=== PATIENT | female | born 1970 | race Caucasian/White ===

== ENCOUNTER → 2017-08-03 11:46 | Outpatient (CLI) | payer OTHER, SELFPAY ==
[2017-08-10 11:51] LABS: HPV HC, High Risk Negative (Negative); HPV Reflexed? YES, CHARGE PATIENT
== END ==
PROVIDERS: Visit Provider Obstetrics & Gynecology
DX: Z12.4 Encounter for screening for malignant neoplasm of cervix (principal)
CPT/HCPCS: 87624; 88175; G0145

== ENCOUNTER → 2017-08-11 11:02 | Outpatient (CLI) | payer OTHER, SELFPAY ==
[2017-08-11 12:33] LABS: ALB/GLOB Ratio 0.9 RATIO (0.9-2.4); AST(SGOT) 31 U/L (15-37); Alanine Aminotransfer ALT/SGPT 41 U/L (13-56); Albumin, Serum 3.5 g/dL (3.2-5.0); Alkaline Phosphatase 89 U/L (45-117); Anion Gap 8 (5-15); BUN 15 mg/dL (7-18); BUN/Creat Ratio 22.8 RATIO (10-20); Calcium,Total 8.6 mg/dL (8.5-10.1); Chloride 105 mmol/L (98-107); Creatinine, Serum 0.66 mg/dL (0.55-1.02); EST Glomerular Filtration Rate 102 mL/min (>60); Est Glom Filt Rate - Afr Amer 124 mL/min (>60); Globulin 3.8 g/dL (2.2-4.2); Glucose 88 mg/dL (74-106); Potassium 3.7 mmol/L (3.5-5.1); Protein, Total 7.3 g/dL (6.4-8.2); Rheumatoid Factor < 10.0 IU/mL (<15); Sodium Level 140 mmol/L (136-145); Thyroid Stim Hormone (TSH) 0.05 uIU/mL (0.358-3.74)
[2017-08-11 12:35] LABS: Insulin 10.2 mU/L (2.6-37.6); Vitamin D,25 Hydroxy 35.9 ng/mL (29.95-100.01)
[2017-08-12 15:10] LABS: Anti-Thyroglobulin AB < 1.0 IU/mL (0.0-0.9); Thyroglobulin, Serum Qt. < 0.1 ng/mL (1.5-38.5)
== END ==
PROVIDERS: Family Provider Nurse Practitioner; PCP Nurse Practitioner; Visit Provider Internal Medicine Endocrinology, Diabetes & Metabolism
DX: E89.0 Postprocedural hypothyroidism (principal); E55.9 Vitamin D deficiency, unspecified; C73 Malignant neoplasm of thyroid gland; E88.81 Metabolic syndrome and other insulin resistance; R74.8 Abnormal levels of other serum enzymes
CPT/HCPCS: 36415; 80053; 82306; 83525; 84432; 84443; 86431; 86800

== ENCOUNTER → 2017-09-07 14:41 | Outpatient (CLI) | payer OTHER, SELFPAY | PROVIDERS: Family Provider Nurse Practitioner; PCP Nurse Practitioner; Visit Provider Internal Medicine Endocrinology, Diabetes & Metabolism | DX: N20.0 Calculus of kidney (principal) ==

== ENCOUNTER → 2017-09-27 09:57 | Outpatient (CLI) | payer OTHER, SELFPAY ==
[2017-09-27 13:10] LABS: ALB/GLOB Ratio 0.9 RATIO (0.9-2.4); AST(SGOT) 31 U/L (15-37); Alanine Aminotransfer ALT/SGPT 40 U/L (13-56); Albumin, Serum 3.4 g/dL (3.2-5.0); Alkaline Phosphatase 88 U/L (45-117); Anion Gap 8 (5-15); BUN 16 mg/dL (7-18); Calcium,Total 8.4 mg/dL (8.5-10.1); Chloride 109 mmol/L (98-107); EST Glomerular Filtration Rate 96 mL/min (>60); Est Glom Filt Rate - Afr Amer 116 mL/min (>60); Globulin 3.6 g/dL (2.2-4.2); Glucose 107 mg/dL (74-106); Potassium 3.6 mmol/L (3.5-5.1); Sodium Level 144 mmol/L (136-145); Thyroid Stim Hormone (TSH) < 0.01 uIU/mL (0.358-3.74)
[2017-09-29 11:30] LABS: Anti-Thyroglobulin AB < 1.0 IU/mL (0.0-0.9); Thyroglobulin, Serum Qt. < 0.1 ng/mL (1.5-38.5)
== END ==
PROVIDERS: Family Provider Nurse Practitioner; PCP Nurse Practitioner
DX: C73 Malignant neoplasm of thyroid gland (principal); E89.0 Postprocedural hypothyroidism
CPT/HCPCS: 36415; 80053; 84432; 84443; 86800

== ENCOUNTER → 2018-01-11 15:59 | Outpatient (CLI) | payer OTHER, SELFPAY ==
[2018-01-11] MEDS: DiphenhydrAMINE 50 MG/ML Syringe IV (16:14)
[2018-01-11 16:15] VITALS: BP 134/86; PULSE 110; RESP 18; O2SAT 99; BMI 35.4
[2018-01-11] MEDS: MethylPREDNISolone 125 MG/2 ML Vial 60 MG IV (16:24)
[2018-01-11 17:32] VITALS: BP 143/71; PULSE 117; RESP 18; O2SAT 100
== END ==
PROVIDERS: Family Provider Nurse Practitioner; PCP Nurse Practitioner; Visit Provider Nurse Practitioner Gerontology
DX: R06.02 Shortness of breath (principal)
CPT/HCPCS: 96374; 96375; 71275; Q9967; A4216

== ENCOUNTER → 2018-01-12 15:29 | Outpatient (CLI) | payer OTHER, SELFPAY | PROVIDERS: Family Provider Nurse Practitioner; PCP Nurse Practitioner; Visit Provider Nurse Practitioner Gerontology | DX: M79.606 Pain in leg, unspecified (principal) | CPT/HCPCS: 93971 ==

== ENCOUNTER → 2018-01-17 13:37 | Outpatient (CLI) | payer OTHER, SELFPAY ==
--- NOTE | 2018-01-17 13:46 | MRI_ITS ---
STUDY: MRI SOFT TISSUE NECK WITHOUT CONTRAST REASON FOR EXAM: Female, 47 years old. Lump on the left side of the face. TECHNIQUE: Standardized fat and water weighted pulse sequences were obtained in all 3 orthogonal planes without administration of contrast material. COMPARISON: None. FINDINGS: Normal right parotid gland. There is extension of the left parotid gland along the Stensen's duct consistent with normal variation explains the abnormal mass noted on clinical examination. Normal bilateral highway engineer spaces. Normal bilateral parapharyngeal spaces. Normal bilateral carotid spaces. Normal bilateral sublingual and submandibular glands and spaces. Normal visualized nasopharynx. Normal retropharyngeal space. Normal perivertebral space. Normal visualized bilateral faucial tonsils. The visualized tongue, tongue base and oropharynx are normal. The visualized cervical lymph nodes (levels I-) are within normal size limits, and maintain normal morphology. There is no demonstrated solid or cystic mass lesion. Normal epiglottis, bilateral vallecula and hypopharynx. The pre-epiglottic and paraglottic adipose spaces are normal. Normal visualized bilateral piriform sinuses, aryepiglottic folds, vocal cords, and arytenoid-cricoid articulations. Normal subglottic trachea. Normal bilateral lobes of the thyroid gland. Normal visualized pulmonary apices. Mild mucosal thickening in the paranasal sinuses. Normal visualized cervical spine. MRI/Orbit Face and Neck (Routine) IMPRESSION: There is extension of the left parotid gland along the Stensen's duct consistent with normal variation explains the abnormal mass noted on clinical examination. Follow-up in 3 months would be recommended to ensure stability. Electronically Signed: Elvie Becker MD at 0:13 EDT Tel , Service support ,
== END ==
PROVIDERS: Family Provider Nurse Practitioner; PCP Nurse Practitioner; Visit Provider Otolaryngology
DX: R22.1 Localized swelling, mass and lump, neck (principal)
CPT/HCPCS: 70540

== ENCOUNTER → 2018-02-14 15:05 | Outpatient (CLI) | payer OTHER, SELFPAY ==
--- NOTE | 2018-02-14 15:07 | BI_ITS ---
MAMMOGRAPHY - BILATERAL SCREENING REASON FOR EXAM: Female, 47 years old. Routine annual screening examination. PERTINENT HISTORY: Non-contributory. TECHNIQUE: Digital bilateral breast thee (3D mammographic acquisition) in the CC and MLO projections. 2-D mediolateral oblique (MLO) and craniocaudad (CC) views of both breasts were obtained. CAD: Full Field Digital Mammography with Computer Added Detection was performed. COMPARISON: Comparison is made with prior study dated July 22, 2016 and August 15, 2014. FINDINGS: Breast Composition: The breasts are heterogeneously dense, which may obscure small masses. There are no dominant masses or suspicious calcifications. Stable benign-appearing bilateral axillary lymph nodes. No other significant abnormalities are identified. There has been no significant change since the prior study. BI/SCREENING MAMM (CAD), BILAT IMPRESSION: Stable bilateral screening mammogram. Yearly follow-up mammogram recommended. (A) ASSESSMENT CATEGORY: BIRADS Category 2: Benign. A letter regarding these results will be sent to the patient by the facility within 30 days. Approximately 10% of breast cancers are not detected by mammography. A normal mammogram should not delay biopsy of a clinically suspicious abnormality. [id number] Electronically Signed: Jh Lyons MD at 8:52 EDT Tel [phone], Service support ,
== END ==
PROVIDERS: Family Provider Nurse Practitioner; PCP Nurse Practitioner; Visit Provider Obstetrics & Gynecology
DX: Z12.31 Encounter for screening mammogram for malignant neoplasm of breast (principal)
CPT/HCPCS: 77063; 77067

== ENCOUNTER → 2018-04-23 07:01 | Outpatient (CLI) | payer OTHER, SELFPAY ==
--- NOTE | 2018-04-23 07:06 | CT_ITS ---
STUDY: CT SOFT TISSUE NECK WITHOUT CONTRAST REASON FOR EXAM: Female, 47 years old. Tender left parotid lump present for weeks RADIATION DOSAGE (If Supplied By Facility): CTDIvol = ( 19.09 ) mGy, DLP = ( 615.08 ) mGycm TECHNIQUE: The patient was scanned in a multi-detector CT scanner. High resolution transaxial imaging was performed without the administration of intravenous contrast material. Sagittal and coronal images were reconstructed. Individualized dose optimization techniques were used for this CT. COMPARISON: None. FINDINGS: Normal bilateral parotid glands. Normal bilateral zipper joiner spaces. Normal bilateral parapharyngeal spaces. There are small soft tissue densities/nodes adjacent to the left submandibular gland corresponding to the marker placed on the patient's skin in this region. Normal visualized nasopharynx. Normal retropharyngeal space. Normal perivertebral space. Normal visualized bilateral faucial tonsils. The visualized tongue, tongue base and oropharynx are normal. There are multiple small nodes in the carotid spaces bilaterally and the posterior triangle of the neck, the largest measures about 1.2 cm in the right carotid space. There is no demonstrated solid or cystic mass lesion. The epiglottis appears to be unremarkable. The vallecula and hypopharynx appear unremarkable.. Normal visualized bilateral piriform sinuses, aryepiglottic folds, vocal cords, and arytenoid-cricoid articulations. Normal subglottic trachea. The thyroid gland is not enlarged. Normal visualized pulmonary apices. The sinuses demonstrate small soft tissue densities in the right maxillary sinus which could represent retention cyst. There is mild mucosal thickening of the right maxillary sinus. Normal visualized cervical spine. CT/Soft Tissue Neck without Contr IMPRESSION: Multiple small nodes on both sides of the neck as described above and in the region of the left submandibular gland could be reactive. Otherwise no demonstrated focal mass. Unremarkable airway. Electronically Signed: Daniel Mcgee MD at 11:09 EST Tel , Service support ,
== END ==
PROVIDERS: Family Provider Nurse Practitioner; PCP Nurse Practitioner; Referring Provider Internal Medicine Endocrinology, Diabetes & Metabolism; Visit Provider Internal Medicine Endocrinology, Diabetes & Metabolism
DX: C73 Malignant neoplasm of thyroid gland (principal)
CPT/HCPCS: 70490

== ENCOUNTER → 2018-07-28 08:04 | Outpatient (CLI) | payer OTHER, SELFPAY ==
--- NOTE | 2018-07-28 08:09 | CT_ITS ---
STUDY: CT SOFT TISSUE NECK WITH CONTRAST REASON FOR EXAM: Female, 47 years old. Cervical lymphadenopathy. Swollen lymph nodes more marked on the right. Pain in the right neck and face. History of thyroid cancer with radioactive iodine therapy and thyroidectomy. RADIATION DOSAGE (If Supplied By Facility): CTDIvol = ( 20.17 ) mGy, DLP = ( 574.22 ) mGycm TECHNIQUE: The patient was scanned in a multi-detector CT scanner. High resolution transaxial imaging was performed following intravenous administration of Isovue 300 100cc IV. Sagittal and coronal images were reconstructed. Individualized dose optimization techniques were used for this CT. COMPARISON: April 23, 2018. FINDINGS: Normal bilateral parotid glands. Normal bilateral manager internet spaces. Normal bilateral parapharyngeal spaces. Normal bilateral carotid spaces. There are some centimeter jugulodigastric lymph nodes which appear decreased in size when compared to prior study. Normal bilateral sublingual and submandibular glands and spaces. There are small stable submandibular lymph nodes. Normal visualized nasopharynx. Normal retropharyngeal space. Normal perivertebral space. Normal visualized bilateral faucial tonsils. The visualized tongue, tongue base and oropharynx are normal. The visualized cervical lymph nodes (levels I-) are within normal size limits, and maintain normal morphology. There is no demonstrated solid or cystic mass lesion. There is no abnormal contrast enhancement. Normal epiglottis, bilateral vallecula and hypopharynx. The pre-epiglottic and paraglottic adipose spaces are normal. Normal visualized bilateral piriform sinuses, aryepiglottic folds, vocal cords, and arytenoid-cricoid articulations. Normal subglottic trachea. The thyroid is not visualized. There is no evidence of mass in the anterior neck. Normal visualized pulmonary apices. There are mucous retention cysts in the right maxillary sinus. Normal visualized cervical spine. CT/Soft Tissue Neck WITH Contrast IMPRESSION: 1. Small jugulodigastric lymph nodes, decreased in size from the previous study. There is no other significant lymphadenopathy other than small stable nodes in the right submandibular region. 2. No other change from April 23, 2018 Electronically Signed: Wili Mae DO at 19:16 EST Tel [phone], Service support ,
--- NOTE | 2018-07-28 08:40 | RAD_ITS ---
STUDY: X-RAY - ESOPHAGUS (BARIUM SWALLOW) WITH FLUOROSCOPY REASON FOR EXAM: Female, 47 years old. Dysphagia. History of thyroid carcinoma in the resection. TECHNIQUE: 15 view(s) of the esophagus were obtained following swallowing of barium. FLUOROSCOPY TIME (if supplied): (0:44) minutes/seconds COMPARISON: None. FINDINGS: There is no demonstrated esophageal foreign body. There is no demonstrated stricture or mucosal abnormality. There is a small hiatal hernia of the fundus of the stomach with gastroesophageal reflux. The patient ingested a 12 mm tablet of barium without any difficulty. Normal visualized aortic arch and descending thoracic aorta. Normal visualized pulmonary parenchyma. Normal visualized osseous structures of the thorax. RAD/Esophagus Only IMPRESSION: Small sliding hiatal hernia with gastroesophageal reflux. Electronically Signed: Jh Lyons, at 15:10 EST , Service support ,
[2018-07-28 09:41] LABS: Erythrocyte Sedimentation Rate 5 mm/hr (0-20)
[2018-07-28 09:43] LABS: Absolute Lymphocyte Count 0.78 X10^3/ul (0.83-4.51); Absolute Neutrophil Count 6.3 X10^3/uL (2.0-7.7); Basophil# 0.02 X10^3/uL; Basophil% 0.3 % (0-1); Eosinophil# 0.21 X10^3/uL; Eosinophils% 2.8 % (0-5); Hematocrit 41.2 % (37-47); Hemoglobin 13.5 g/dl (12.0-15.0); Lymphocyte # 0.78 X10^3/ul (4.0); Lymphocyte % 10.3 % (19-41); Mean Corp Hgb Conc 32.8 g/gl (32-36); Mean Corpuscular Hgb 28.5 pg (27.0-32.0); Mean Corpuscular Volume 86.9 fL (81-99); Mean Platelet Vol. 9.8 fl (6.2-12.0); Monocyte# 0.27 X10^3/uL; Monocyte% 3.6 % (0-10); Neutrophil # 6.27 X10^3/uL (2.7-7.7); Neutrophil % 82.7 % (47-70); Platelet Count 229 K/mm3 (150-450); RBC Distribution Width CV 12.3 % (11.6-14.6); RBC Distribution Width SD 39.7 fl (35.1-43.9); Red Blood Count 4.74 M/mm3 (4.2-5.4); White Blood Count 7.6 K/mm3 (4.4-11.0)
[2018-07-28 09:44] LABS: POSITIVE COUNT NO; POSITIVE DIFFERENTIAL NO; POSITIVE MORPHOLOGY NO
[2018-07-28 09:47] LABS: CRP 8.42 mg/L (0.0-3.0)
== END ==
PROVIDERS: Family Provider Nurse Practitioner; PCP Nurse Practitioner; Referring Provider Internal Medicine; Visit Provider Internal Medicine
DX: R59.0 Localized enlarged lymph nodes (principal); R13.10 Dysphagia, unspecified
CPT/HCPCS: 36415; 70491; 74220; 85025; 85652; 86140; Q9967

== ENCOUNTER → 2018-08-08 16:48 | Outpatient (CLI) | payer OTHER, SELFPAY ==
[2018-01-11 16:15] VITALS: BMI 35.4
[2018-08-08 17:51] LABS: CRP 6.29 mg/L (0.0-3.0)
[2018-08-12 08:30] LABS: HPV Reflexed? NOT INDICATED
== END ==
PROVIDERS: Family Provider Nurse Practitioner; PCP Nurse Practitioner; Referring Provider Internal Medicine; Visit Provider Internal Medicine
DX: R79.82 Elevated C-reactive protein (CRP) (principal); Z12.4 Encounter for screening for malignant neoplasm of cervix
CPT/HCPCS: 36415; 86140; 88175; G0145

== ENCOUNTER → 2018-11-24 09:13 | Outpatient (CLI) | payer OTHER, SELFPAY ==
[2018-01-11 16:15] VITALS: BMI 35.4
[2018-11-24 10:35] LABS: Follicle Stimulating Hormone 62.5 mIU/mL
[2018-11-24 10:41] LABS: T4 Free Direct 1.19 ng/dL (0.76-1.46); Thyroid Stim Hormone (TSH) 0.29 uIU/mL (0.358-3.74)
== END ==
PROVIDERS: Family Provider Nurse Practitioner; PCP Nurse Practitioner; Referring Provider Obstetrics & Gynecology; Visit Provider Internal Medicine Endocrinology, Diabetes & Metabolism
DX: C73 Malignant neoplasm of thyroid gland (principal); N91.2 Amenorrhea, unspecified
CPT/HCPCS: 36415; 83001; 84439; 84443

== ENCOUNTER → 2019-03-17 09:46 | Outpatient (CLI) | payer OTHER, SELFPAY ==
[2018-01-11 16:15] VITALS: BMI 35.4
[2019-03-17 13:09] LABS: T4 Free Direct 1.17 ng/dL (0.76-1.46); Thyroid Stim Hormone (TSH) 0.21 uIU/mL (0.358-3.74)
[2019-03-21 14:45] LABS: Anti-Thyroglobulin AB < 1.0 IU/mL (0.0-0.9); Thyroglobulin, Serum Qt. 0.1 ng/mL (1.5-38.5)
== END ==
PROVIDERS: Family Provider Nurse Practitioner; PCP Nurse Practitioner; Referring Provider Internal Medicine Endocrinology, Diabetes & Metabolism; Visit Provider Internal Medicine Endocrinology, Diabetes & Metabolism
DX: C73 Malignant neoplasm of thyroid gland (principal)
CPT/HCPCS: 36415; 84432; 84439; 84443; 86800

== ENCOUNTER → 2019-06-08 12:50 | Outpatient (CLI) | payer OTHER, SELFPAY ==
[2018-01-11 16:15] VITALS: BMI 35.4
[2019-06-08 14:52] LABS: T4 Free Direct 1.29 ng/dL (0.76-1.46); Thyroid Stim Hormone (TSH) 2.23 uIU/mL (0.358-3.74)
[2019-06-11 14:13] LABS: Thyroglobulin Antibody < 1.0 IU/mL (0.0-0.9); Thyroid Peroxidase AB 7 IU/mL (0-34)
== END ==
PROVIDERS: Family Provider Nurse Practitioner; PCP Nurse Practitioner; Referring Provider Internal Medicine Endocrinology, Diabetes & Metabolism; Visit Provider Internal Medicine Endocrinology, Diabetes & Metabolism
DX: C73 Malignant neoplasm of thyroid gland (principal)
CPT/HCPCS: 36415; 84439; 84443; 86376; 86800

== ENCOUNTER → 2020-06-12 16:52 | Outpatient (CLI) | payer OTHER, SELFPAY ==
[2018-01-11 16:15] VITALS: BMI 35.4
[2020-06-12 17:24] LABS: D-Dimer Quantitative (DVT/PE) 0.43 FEU/ug/m (0.27-0.49)
== END ==
PROVIDERS: PCP Nurse Practitioner; Referring Provider Nurse Practitioner Family; Visit Provider Nurse Practitioner Family
DX: U07.1 COVID-19 (principal); R06.02 Shortness of breath; R07.9 Chest pain, unspecified
CPT/HCPCS: 85379

== ENCOUNTER → 2021-02-04 11:17 | Outpatient (CLI) | payer BC, SELFPAY ==
[2021-02-04 12:46] LABS: Vitamin D,25 Hydroxy 46.6 ng/mL
[2021-02-04 13:00] LABS: AST(SGOT) 27 U/L (15-37); Alanine Aminotransfer ALT/SGPT 34 U/L (13-56); Albumin, Serum 3.6 g/dL (3.2-5.0); Alkaline Phosphatase 96 U/L (45-117); Anion Gap 8 (5-15); BUN 17 mg/dL (7-18); BUN/Creat Ratio 25.2 RATIO (10-20); Calcium,Total 8.6 mg/dL (8.5-10.1); Chloride 106 mmol/L (98-107); Creatinine, Serum 0.67 mg/dL (0.55-1.02); EST Glomerular Filtration Rate 98 mL/min (>60); Est Glom Filt Rate - Afr Amer 119 mL/min (>60); Globulin 3.7 g/dL (2.2-4.2); Glucose 97 mg/dL (74-106); Potassium 3.7 mmol/L (3.5-5.1); Protein, Total 7.3 g/dL (6.4-8.2); Sodium Level 140 mmol/L (136-145); Thyroid Stim Hormone (TSH) 0.56 uIU/mL (0.358-3.74)
[2021-02-05 17:35] LABS: Thyroglobulin Antibody < 1.0 IU/mL (0.0-0.9)
[2021-02-05 20:26] LABS: Anti-Thyroglobulin AB < 1.0 IU/mL (0.0-0.9); Thyroglobulin, Serum Qt. < 0.1 ng/mL (1.5-38.5)
== END ==
PROVIDERS: Anesthesiology; PCP Nurse Practitioner Family; Referring Provider Internal Medicine Endocrinology, Diabetes & Metabolism; Visit Provider Internal Medicine Endocrinology, Diabetes & Metabolism
DX: C73 Malignant neoplasm of thyroid gland (principal); E89.0 Postprocedural hypothyroidism; E55.9 Vitamin D deficiency, unspecified
CPT/HCPCS: 36415; 80053; 82306; 84432; 84443; 86800; 87635; U0005; U0003

== ENCOUNTER 2021-02-06 10:15 | Day surgery (SDC) | payer BC, SELFPAY ==
--- NOTE | 2021-02-04 10:52 | EKG12_ITS ---
Test Reason : PREOP Blood Pressure : / mmHG Vent. Rate : 100 BPM Atrial Rate : 100 BPM P-R Int : 182 ms QRS Dur : 082 ms QT Int : 346 ms P-R-T Axes : 065 007 052 degrees QTc Int : 446 ms Normal sinus rhythm Normal ECG Confirmed by NIMCO GRACIA, STEPH ([id number]), city editor KAMAR MEI ([id number]) on 02/05/2021 9:21:02 AM Referred By: Jessica Burrell Confirmed By:STEPH RINALDI MD
[2021-02-04 12:20] LABS: Hematocrit 39.3 % (37-47); Hemoglobin 13.1 g/dL (12.0-15.0); Mean Corp Hgb Conc 33.3 g/dL (32-36); Mean Corpuscular Hgb 28.2 pg (27.0-32.0); Mean Corpuscular Volume 84.7 fL (81-99); Mean Platelet Vol. 10.5 fl (6.2-12.0); Platelet Count 206 K/mm3 (150-450); RBC Distribution Width CV 12.5 % (11.6-14.6); RBC Distribution Width SD 38.2 fl (35.1-43.9); Red Blood Count 4.64 M/mm3 (4.2-5.4); White Blood Count 5.1 K/mm3 (4.4-11.0)
--- NOTE | 2021-02-05 09:03 | HP.PCM_ITS ---
History and Physical Date of Admission: 02/05/21 Pre-Op History and Physical ? HPI: The patient is a 50 year old female presenting for discussion regarding postmenopausal bleeding and endometrial biopsy results. Patient had endometrial biopsy which under comments discusses possibility of glandular crowding and they cannot rule out hyperplasia. Patient states last menstrual period was May 2019 and then presented to nurse practitioner Marilou Santiago with postmenopausal bleeding. Pelvic ultrasound shows a 4 mm lining with some calcifications in the endocervical canal. Patient offers no concerns today. She did obtain preoperative clearance from Romy Lujan MD. ? Pre-operative visit. She is scheduled for Hysteroscopy D&C, for PMB, glandular crowding can't r/o hyperplasia on EMB biopsy in office on 02/06/21. Procedure discussed along with risks, benefits and complications. Other alternatives discussed for management. Consent form signed? Yes. ? ? PAST MEDICAL HISTORY PAST MEDICAL HISTORY Diagnosis Date ? Acute gastritis without mention of hemorrhage ? ? Carcinoma in situ of other specified sites 04/2007 ? thyroid ? Chronic depressive personality disorder ? ? Endometriosis ? ? INSOMNIA NOS 12/20/2007 ? Migraine without aura ? ? Other and unspecified hyperlipidemia ? ? Hyperlipidemia ? Other pulmonary embolism and infarction ? ? PMH - PAST MEDICAL HISTORY OF 04-15-2007 ? Cardiolity Stress Test - [facility] ? Thyroid cancer (HCC) ? ? Unspecified hypothyroidism ? ? ? PAST SURGICAL HISTORY PAST SURGICAL HISTORY Procedure Laterality Date ? DELIVERY ONLY ? ? , low cervical ? DELIVERY ONLY ? 06-21-01 ? , low cervical ? D&C, DIAG AND/OR THERAPEUTIC ? 91 ? Dilation & curettage ? EGD W/O [facility] SPECIMEN W/BX ? 12/12/09 ? LIGATE FALLOPIAN TUBE ? ? PAST SURGICAL HISTORY OF ? ? ? right carpal tunnel release ? REPAIR OF NASAL SEPTUM ? ? ? Septoplasty, Dr Fields ? RIGHT HEART CATHETERIZATION ? 2007 ? Cardiac cath, R heart ? THYROIDECTOMY ? ? partial, left ? THYROIDECTOMY SUBTOTAL/PARTIAL ? 03/2007 ? Patient had cancer, follicular cell ? ? ? CURRENT MEDICATIONS Current Outpatient Medications Medication Sig Dispense Refill ? cholecalciferol (VITAMIN D-3) 5,000 unit tab Take 5,000 Units by mouth once daily. ? ? ? amphetamine-dextroamphetamine XR (ADDERALL XR) 25 mg 24 hr capsule Take 1 capsule by mouth once daily for 30 days. 30 capsule 0 ? DULoxetine (CYMBALTA) 60 mg capsule TAKE 1 CAPSULE BY MOUTH ONCE DAILY. 90 capsule 1 ? buPROPion XL (WELLBUTRIN XL) 300 mg 24 hr tablet TAKE 1 TABLET BY MOUTH ONCE DAILY. 90 tablet 1 ? SYNTHROID 175 mcg tablet Take 1/2 of a tablet by mouth on Wednesday, and take 1 tablet by mouth Wednesday thru Wednesday (Patient taking differently: six times a week. 175 mcg x6 daily, none on Wednesday ) 90 tablet 1 ? busPIRone (BUSPAR) 5 mg tablet Take 1 tablet by mouth three times daily as needed. 60 tablet 1 ? levothyroxine (SYNTHROID) 137 mcg tablet TAKE 1 TABLET BY MOUTH ONCE DAILY. TAKE ON EMPTY STOMACH. FOR THYROID. (Patient taking differently: Take 1 tablet by mouth once daily. 175 mcg Take on empty stomach. For Thyroid. ) 30 tablet 3 ? albuterol HFA (VENTOLIN HFA) 90 mcg/actuation inhaler Inhale 2 Puffs as instructed every 4 hours as needed for Wheezing/Shortness of Breath. 18 g 3 ? omeprazole (PRILOSEC) 20 mg capsule Take 1 capsule by mouth daily before breakfast. 1/2 hr before meal. 90 capsule 3 ? albuterol (PROVENTIL) 2.5 mg /3 mL (0.083 %) nebulizer solution Use 3 mL via nebulizer every 4 hours as needed for Wheezing/Shortness of Breath. Use over 5-15minutes. 1 Package 2 ? SUMAtriptan (IMITREX) 25 mg tablet Take 1 tablet by mouth as needed for Migraine Headache (see administration instructions). As needed for migraine 9 tablet 3 ? multivit,calc,mins/iron/folic (ONE-A-DAY WOMENS FORMULA ORAL) Take by mouth once daily. ? ? ? Current Facility-Administered Medications Medication Dose Route Frequency Provider Last Rate Last Admin ? perflutren lipid microspheres 1.3 mL in NaCl (PF) 0.9% 10 mL injection (DEFINITY) INTRAVENOUS DIRECTED PRN Elif Green, RAILROAD OPERATING ENGINEER.METAL TEMPERER ? sodium chloride 0.9 % (flush) 10 mL (BD POSIFLUSH) 10 mL INTRAVENOUS DIRECTED PRN Elif Green, RAILROAD OPERATING ENGINEER.METAL TEMPERER ? ? ALLERGIES: Contrast Dye ? PERSONAL HISTORY: SOCIAL HISTORY Social History ? Tobacco Use ? Smoking status: Never Smoker ? Smokeless tobacco: Never Used Vaping Use ? Vaping Use: Never used Substance Use Topics ? Alcohol use: Yes ? ? Comment: rare 1-2 drinks per year ? Drug use: No ? FAMILY HISTORY: FAMILY HISTORY FAMILY HISTORY Problem Relation Age of Onset ? other (hypothyroidism) Mother ? ? Coronary Artery Disease Father ? ? Ischemic Heart Disease Maternal Grandfather ? ? Ischemic Heart Disease Paternal Grandfather ? ? Prostate Cancer Paternal Grandfather ? ? Stroke Maternal Grandmother ? ? ? REVIEW OF SYMPTOMS: negative except as noted above PHYSICAL EXAMINATION: ? VITALS: Blood pressure 130/78, height 5' 3 (1.6 m), weight 190 lb (86.2 kg), last menstrual period 06/23/2019. ? GENERAL: The patient is well nourished, well hydrated in no acute distress. , The patient is oriented to time, place, and person. NECK: full range of motion LUNGS: Clear to auscultation bilaterally. no wheezes, rhonchi or rales HEART: Regular rate and rhythm, Normal heart sounds and No murmurs or gallops ? IMPRESSION: PMB, EMB results inconclusive for hyperplasia ? PLAN: Hysteroscopy, D&C ? Pt has been counseled on risks/benefits and alternatives of surgery including but not limited to anesthesia, bleeding, infection, uterine perforation with subsequent injury to pelvic structures including bowel, bladder, ureters and vessels. Pt wishes to proceed with surgery at this time. ? covid testing reviewed PRe and POST op instructions reviewed ? I have reviewed and updated past medical and surgical history, medications and allergies Jessica Coy MD
[2021-02-06] VITALS (7 sets, daily range): BP systolic 122–152; BP diastolic 85–92; PULSE 98–112; RESP 16; TEMP 36–36.8; O2SAT 92–100; BMI 34.0
[2021-02-06] MEDS: Lactated Ringers 1,000 ML 100 ML IV (10:25)
--- NOTE | 2021-02-06 11:50 | PCM.OPRPT ---
Problems Associated Problem List Diagnoses (1) PMB (postmenopausal bleeding): Report of Operation Date of Procedure: 02/06/21 Pre-Operative Diagnosis: PMB Post-Operative Diagnosis: same Surgery/Procedure Performed:: Hysteroscopy, D&C Description of Surgical Findings:: Endometrium appears atrophic in nature. Normal tubal ostia. Surgeon: Jessica Burrell furnace operator and tender: yefri hall Type of Anesthesia: MAC Special Medications: none Specimen's removed: Endometrial curettings Drains: none Estimated Blood Loss (mL): <5cc Fluids Replaced: 500 Description of Procedure: Informed consent was obtained the patient was taken the operating room she was placed in supine position. She was given anesthesia. She was then placed in the [facility] where she was prepped and draped in the normal sterile fashion. At this time the weighted speculum was placed in the posterior fornix of vagina. Single-tooth tenaculum was used to gently grasp the anterior lip the cervix. At this time the uterine cavity was sounded to approximately 6cm. Gentle dilatation was performed once adequate dilatation of the cervix was achieved the hysteroscope using normal saline as a distention medium was placed. Tubal ostia visualized. This time hysteroscopy was complete. gentle sharp curettage performed- minimal tissue noted. Tissue will be sent to pathology for evaluation. hysteroscope reinserted, cavity intact and no further abnormalties appreciated. Tenaculum removed. Good hemostasis. Instrument, lap count correct x 2. Vaginal Sweep was negative. Grafts/Implants Used: none Procedure Start Time: 11:43 Procedure Stop Time: 11:49 Complications none Admit VTE Documentation VTE Present on Admission: Yes VTE Mechan Device Prophylaxis: SCD's VTE Pharm Prophylaxis ordered?: No Reason prophylaxis not ordered:: Procedure Not Indicated
--- NOTE | 2021-02-06 11:54 | EX.PCM.DISCH ---
Discharge Instructions Procedure D&C Diet Discharge Diet: No restrictions Activity May resume sexual activity in: 1 week Dressing / Incision Call your doctor if you observe: Fever of 101 or Higher, Inability to urinate, Using more than 1 pad per hour and Uncontrolled pain Follow Up Care Please Follow Up With: Jessica Burrell MD When: 1-2 weeks post OP if you need an appointment please call [phone] Test Results: Test results from this visit will be discussed in further detail at your follow-up appointment, if applicable. Discharge Plan Admission Attending Provider: Jessica Burrell Primary Care Provider: Pricila Lujan NP Discharge Orders/Prescriptions Prescriptions: No Action bupropion HCl 150 MG tablet extended release 24 hr 150 mg PO DAILY RF: 0 levothyroxine 125 MCG tablet 125 mcg PO DAILY Qty: 30 RF: 0 buspirone [BuSpar] 5 mg Tablet 5 mg PO TID RF: 0 albuterol 90 mcg/actuation Aerosol 90 mcg INHALATION DAILY PRN (Reason: Wheezing) RF: 0 dextroamphetamine-amphetamine [Adderall XR] 25 mg Capsule,Extended Release 24hr 25 mg PO DAILY RF: 0 duloxetine [Cymbalta] 60 mg Capsule,Delayed Release(Dr/Ec) 60 mg PO DAILY RF: 0 Other Ambulatory Orders: 12 Lead EKG (Routine) Timeframe: 20210204 Location: None Selected Ordered By: Dr. Jessica Burrell Disposition Discharge Orders: Discharge Patient (Routine); Ordered 02/06/21 Ordered By: Dr. Jessica Burrell
--- NOTE | 2021-02-06 11:55 | EMB_PTH ---
PATIENT: RANGEL ARANDA LOC: [facility] – [place] U#:[id number] AGE/SX: 50/F ROOM: RE02/06/[address]: Dr. Jessica Burrell, MDDOB: 1970 BED: DIS: 02/06/2021 SPEC #: [id number] RECD: 02/06/21 13:39 STATUS: SUNDAY MILDRED #: [id number] WILLIAM: 02/06/21 11:[address]: Jessica Burrell DEPT: SURGICAL PATHOLOGY RECD BY: Karena Ny ENTERED: 02/06/21 13:55 SP TYPE: ENDOM BX/C AILYN DR: Pricila Lujan, RG Tissues: Endometrium, NOS Procedures: Surgery Specimen Level IV HEADER OPERATION: Hysteroscopy, dilation and curettage PRE-OP DIAGNOSIS: Postmenopausal bleeding TISSUE SUBMITTED: Endometrial curettings MICROSCOPIC DIAGNOSIS Endometrium, curettings: Fragments of benign squamous mucosa. Scant fragments of benign glandular mucosa. AM:angela 02/07/21 MICROSCOPIC DESCRIPTION Slides are reviewed. GROSS DESCRIPTION Received in formalin is one container labeled with the patient name and designated endometrial curettings. The specimen consists of multiple elongated and irregular fragments of pink-rios tissue measuring in aggregate 2 x 1 x <0.1cm. The specimen is totally submitted in one cassette. /AM:angela 02/06/21 TC:5 CPT:11834
== END 2021-02-06 13:02 | disposition home or self-care (01) ==
LOC: SDC 10:15 → AC 10:15
PROVIDERS: PCP Nurse Practitioner Family; Referring Provider Obstetrics & Gynecology; Visit Provider Obstetrics & Gynecology
PROC: 0UDB8ZZ Extraction of Endometrium, Via Natural or Artificial Opening Endoscopic (ICD-10-PCS; CPT 58558; principal; 2021-02-06 11:45)
DX: N95.0 Postmenopausal bleeding (principal); E78.5 Hyperlipidemia, unspecified; E03.9 Hypothyroidism, unspecified; Z79.899 Other long term (current) drug therapy; Z82.49 Family history of ischemic heart disease and other diseases of the circulatory system; Z83.49 Family history of other endocrine, nutritional and metabolic diseases; Z85.850 Personal history of malignant neoplasm of thyroid; Z86.711 Personal history of pulmonary embolism
CPT/HCPCS: 00952; 58558; 36415; 85027; 88305; 93005; C9803; J7120; J2405

== ENCOUNTER → 2022-08-21 | Outpatient (CLI) | payer OTHER, SELFPAY ==
[2022-08-21 10:22] LABS: Erythrocyte Sedimentation Rate 10 mm/hr (0-30)
[2022-08-21 10:24] LABS: Absolute Lymphocyte Count 1.24 X10^3/uL (0.83-4.51); Absolute Neutrophil Count 3.3 X10^3/uL (2.0-7.7); Basophil# 0.03 X10^3/uL; Basophil% 0.6 % (0-1); Eosinophil# 0.31 X10^3/uL; Hematocrit 40.2 % (37-47); Hemoglobin 13.2 g/dL (12.0-15.0); Lymphocyte # 1.24 X10^3/ul (0.83-4.51); Lymphocyte % 23.9 % (19-41); Mean Corp Hgb Conc 32.8 g/dL (32-36); Mean Corpuscular Hgb 27.4 pg (27.0-32.0); Mean Corpuscular Volume 83.6 fL (81-99); Mean Platelet Vol. 10.4 fl (6.2-12.0); Monocyte# 0.34 X10^3/uL; Monocyte% 6.6 % (0-10); NRBC Flagged by Analyzer 0 % (0-5); Neutrophil # 3.25 X10^3/uL (2.7-7.7); Neutrophil % 62.7 % (47-70); Platelet Count 201 K/mm3 (150-450); RBC Distribution Width CV 12.5 % (11.6-14.6); RBC Distribution Width SD 38.2 fl (35.1-43.9); Red Blood Count 4.81 M/mm3 (4.2-5.4); White Blood Count 5.2 K/mm3 (4.4-11.0)
[2022-08-21 10:46] LABS: ALB/GLOB Ratio 1.1 RATIO (0.9-2.4); AST(SGOT) 21 U/L (15-37); Alanine Aminotransfer ALT/SGPT 27 U/L (13-56); Albumin, Serum 3.7 g/dL (3.2-5.0); Alkaline Phosphatase 89 U/L (45-117); Anion Gap 8 (5-15); BUN 26 mg/dL (7-18); BUN/Creat Ratio 37.5 RATIO (10-20); Calcium,Total 9.1 mg/dL (8.5-10.1); Chloride 110 mmol/L (98-107); Creatinine, Serum 0.69 mg/dL (0.55-1.02); EST Glomerular Filtration Rate 95 mL/min (>60); Est Glom Filt Rate - Afr Amer 115 mL/min (>60); Globulin 3.3 g/dL (2.2-4.2); Glucose 93 mg/dL (74-106); LDH 194 U/L (84-246); Potassium 3.8 mmol/L (3.5-5.1); Sodium Level 143 mmol/L (136-145)
[2022-08-24 14:08] LABS: Anti-Centromere B Ab <0.2 AI (0.0-0.9); Anti-Chromatin <0.2 AI (0.0-0.9); Anti-Jo <0.2 AI (0.0-0.9); Anti-Scleroderma-70 AB <0.2 AI (0.0-0.9); RNP Ab <0.2 AI (0.0-0.9); SJOGREN'S Anti-SS-A test < 0.2 AI (0.0-0.9); SJOGREN'S Anti-SS-B test < 0.2 AI (0.0-0.9); Smith Ab <0.2 AI (0.0-0.9)
[2022-08-24 14:32] LABS: Anti-dsDNA Ab <1 IU/mL (0-9)
[2022-08-24 16:09] LABS: Albumin 3.7 g/dL (2.9-4.4); Alpha-1-Globulins 0.2 g/dL (0.0-0.4); Alpha-2-Globulins 0.9 g/dL (0.4-1.0); Cytoplasmic Ab (C-ANCA) <1:20 titer (Neg:<1:20); Endomysial Antibody IgA Negative (Negative); Gamma Globulin 0.6 g/dL (0.4-1.8); Immunoglobulin A 88 mg/dL (87-352); Immunoglobulin E 8 IU/mL (6-495); Immunoglobulin G 559 mg/dL (586-1602); Immunoglobulin M 52 mg/dL (26-217); PROEL- TOTAL PROTEIN 6.5 g/dL (6.0-8.5)
[2022-08-24 17:44] LABS: Immunoglobulin A 88 mg/dL (87-352); t-Transglutaminase IgA <2 U/mL (0-3)
[2022-08-24 17:45] LABS: Perinuclear Ab (P-ANCA) <1:20 titer (Neg:<1:20)
== END | disposition home or self-care (01) ==
PROVIDERS: PCP Nurse Practitioner Family; Referring Provider Internal Medicine Gastroenterology; Visit Provider Internal Medicine Gastroenterology
DX: K58.9 Irritable bowel syndrome, unspecified (principal)
CPT/HCPCS: 36415; 80053; 82784; 82785; 83516; 83615; 84165; 85025; 85652; 86140; 86225; 86235; 86255; 86256; 86334

== ENCOUNTER → 2022-08-27 | Outpatient (CLI) | payer OTHER, SELFPAY ==
[2022-09-01 11:10] LABS: Calprotectin, Stool 40 ug/g (0-120)
[2022-09-02 14:11] LABS: Pancreatic Elastase, Fecal > 500 (>200)
== END | disposition home or self-care (01) ==
LOC: LABSPEC 12:22
PROVIDERS: PCP Nurse Practitioner Family; Referring Provider Internal Medicine Gastroenterology; Visit Provider Internal Medicine Gastroenterology
DX: K58.9 Irritable bowel syndrome, unspecified (principal)
CPT/HCPCS: 82274; 82653; 83630; 83993; 87177; 87209; 87329; 87493; 87506

== ENCOUNTER 2023-05-31 02:33 | Emergency (ER) | payer OTHER, SELFPAY ==
[2023-05-31 02:34] VITALS: BP 158/100; PULSE 109; RESP 16; TEMP 36.2; O2SAT 99; BMI 35.3
--- NOTE | 2023-05-31 03:08 | CT_ITS ---
INDICATION: weakness EXAMINATION: CT BRAIN - CT Head or Brain W/O Contrast Injection TECHNIQUE: Serial CT axial images were obtained of the head without intravenous contrast. A radiation dose optimization technique was used for this scan. COMPARISON: None. Findings: Serial CT axial images of the head without contrast. BRAIN PARENCHYMA: Normal jacob-white matter differentiation. No evidence of intraparenchymal hemorrhage or hyperattenuating extra-axial fluid collection. BONES: Paranasal sinuses are clear. SCALP/REMAINING SOFT TISSUES: Unremarkable. ASPECTS Score for Acute Strokes, if applicable: 10 CT/Brain/Head without Contrast IMPRESSION: No acute intracranial hemorrhage in this noncontrast head CT. Electronically Signed: Carlitos Ramirez MD at 4:54 EST ,
[2023-05-31 03:16] LABS: Absolute Lymphocyte Count 1.95 X10^3/uL (0.83-4.51); Absolute Neutrophil Count 3.2 X10^3/uL (2.0-7.7); Basophil# 0.04 X10^3/uL; Basophil% 0.7 % (0-1); Eosinophil# 0.28 X10^3/uL; Eosinophils% 4.6 % (0-5); Hematocrit 41.1 % (37-47); Hemoglobin 13.3 g/dL (12.0-15.0); Lymphocyte # 1.95 X10^3/ul (0.83-4.51); Lymphocyte % 32.1 % (19-41); Mean Corp Hgb Conc 32.4 g/dL (32-36); Mean Corpuscular Hgb 27.1 pg (27.0-32.0); Mean Corpuscular Volume 83.7 fL (81-99); Monocyte# 0.57 X10^3/uL; Monocyte% 9.4 % (0-10); NRBC Flagged by Analyzer 0 % (0-5); Neutrophil # 3.19 X10^3/uL (2.7-7.7); Neutrophil % 52.5 % (47-70); Platelet Count 249 K/mm3 (150-450); RBC Distribution Width CV 13.7 % (11.6-14.6); RBC Distribution Width SD 41.7 fl (35.1-43.9); Red Blood Count 4.91 M/mm3 (4.2-5.4); White Blood Count 6.1 K/mm3 (4.4-11.0)
--- OUTSIDE RECORDS SUMMARY | 2023-05-31 03:16 | XMS RPT_ITS | CCD ---
Author Name Unknown Address [address] [place] [address] Organization [facility] Care Team Providers Care Universal Grinder Tool Name Role Phone Federico Tillman Unavailable Unavailable Mariza Haynes Unavailable Unavailable Federico Tillman Unavailable Unavailable Mariza Haynes Unavailable Unavailable LILLIE HERNANDEZ Unavailable Unavailable ABRAHAM PATTERSON Unavailable Unavailable Ciesa Gilma Unavailable Kayla Clarke Unavailable BonaChapo armendarizory Unavailable Mee Vogel Unavailable Unavailable Slarb, Mariana Unavailable Unavailable Unavailable Unavailable Ciesa Gilma Unavailable Kayla Clarke Unavailable BonaAndrew armendariz Unavailable Mee Vogel Unavailable Unavailable Slarb, Mariana Unavailable Unavailable Unavailable Unavailable Julieta Brandt Unavailable Garfield Roberts Unavailable Unavailable Kami, Candace Unavailable Unavailable [facility] Unavailable [facility] Unavailable [facility] BATTER OUT.NATALIIA, Royce Primary Care Provider [facility] BATTER OUT.Sami WILLIAMah Primary Care Provider [facility] BATTER OUT.Sami WILLIAMah Primary Care Provider [facility] BATTER OUT.Sami WILLIAMah Primary Care Provider PREMASAMIAH Primary Care Unavailable [facility] Primary Care Unavailable [facility] Primary Care Unavailable MARIZA GONSALVES Attending Unavailable IVORY LEMUS Attending Unavailable PREMAJAMIROCYE Primary Care Un[facility] Referring Unavailable [facility] Primary Care Unavailable [facility] Attending Unavailable [facility] Primary Care Unavailable [facility] Primary Care Unavailable JESSICA ACEVEDO Referring Unavail able Allergies Allergy Classification Reported Allergen(s) Allergy Type Date of Onset Reaction(s) Facility (17 sources) Erythromycins; Translations: [Erythromycins] allergy to substance [facility] Work Phone: (17 sources) Iodine *CHEMICALS*; Translations: [Iodine *CHEMICALS*] drug allergy [facility] Work Phone: (20 sources) Contrast media; Translations: [CONTRAST DYE] Drug Allergy [facility] Work Phone: Medications Current Medications Medication Drug Class(es) Dates Sig (Normalized) Sig (Original) azithromycin 250 mg oral tablet (1 source) Macrolide Antimicrobial Start: 01-01-2023 End: 01-06-2023 azithromycin (ZITHROMAX Z-KENDRICK) 250 mg tablet Take 2 tablets day one, then, 1 tablet daily until gone. 6 tablet 0 01/01/2023 01/06/2023 Active Completed/Discontinued Medications Medication Drug Class(es) Dates Sig (Normalized) Sig (Original) [id number] 200 actuat albuterol 0.09 mg/actuat metered dose inhaler (20 sources) beta2-Adrenergic Agonist Start: 09-15-2021 End: 05-04-2023 take 2 puff(s) by inhalation every four hours as needed for wheezing albuterol HFA (PROVENTIL HFA, VENTOLIN HFA) 90 mcg/actuation inhaler Indications: Cough , SOB (shortness of breath) Inhale 2 Puffs as instructed every 4 hours as needed for wheezing/shortnes s of breath. 18 Each 3 05/05/2023 Active Problems Active Problems Problem Classification Problem Date Documented Da te Episodic/Chronic Abdominal pain (1 source) Right upper quadrant pain; Translations: [Right upper quadrant pain] Episodic Allergic reactions (20 sources) Contact dermatitis; Translations: [Contact dermatitis] 02-25-2018 Episodic Anxiety disorders (20 sources) Panic attack; Translations: [Generalized anxiety disorder] 02-25-2018 Chronic Cancer of thyroid (20 sources) Follicular thyroid carcinoma; Translations: [Malignant neoplasm of thyroid gland] Onset: 08-05-2006 05-26-2021 Chronic Cancer of thyroid (17 sources) History of malignant neoplasm of thyroid; Translations: [History of thyroid cancer] 02-25-2018 Episodic Past or Other Problems Problem Classification Problem Date Documented Da te Episodic/Chronic Cardiac dysrhythmias (20 sources) Tachycardia; Translations: [Tachycardia, unspecified] Onset: 11-30-2019 02-25-2018 Episodic Results Test Name Value Interpretation Reference Range Facil ity Vital Signs Date Time Vital Sign Value Performing Clinician Facility 02-03-2022 09:33-0400 Body height 160 cm Lily Waretown PA-C Work Phone: [facility] 02-03-2022 09:33-0400 Body temperature 97.81 [degF] Lily Waretown PA-C Work Phone: [facility] 02-03-2022 09:33-0400 Body weight 85.28 kg Lily Yane PA-C Work Phone: [facility] 02-03-2022 09:33-0400 Diastolic blood pressure 78 mm[Hg] Lily Waretown PA-C Work Phone: [facility] 02-03-2022 09:33-0400 Heart rate 107 /min Lily Yane PA-C Work Phone: [facility] 02-03-2022 09:33-0400 SaO2% (BldA) [Mass fraction] 99 % Lily Yane PA-C Work Phone: [facility] 02-03-2022 09:33-0400 Systolic blood pressure 117 mm[Hg] Lily Waretown PA-C Work Phone: [facility] 01-29-2022 15:58-0400 Body height 160 cm Jessica Neyhart Polo MD Work Phone: [facility] 01-29-2022 15:58-0400 Body weight 85.73 kg Jessica Polo MD Work Phone: [facility] 01-29-2022 15:58-0400 Diastolic blood pressure 78 mm[Hg] Jessica Polo MD Work Phone: [facility] 01-29-2022 15:58-0400 Systolic blood pressure 120 mm[Hg] Jessica Polo MD Work Phone: [facility] 01-21-2022 17:31-0400 Body height 159.5 cm Royce Prema BATTER OUT.ELECTRICAL WIRER Work Phone: [facility] 01-21-2022 17:31-0400 Body weight 86.46 kg Royce Prema BATTER OUT.ELECTRICAL WIRER Work Phone: [facility] 01-21-2022 17:31-0400 Diastolic blood pressure 84 mm[Hg] Royce Prema BATTER OUT[employer]ELECTRICAL WIRER Work Phone: [facility] 01-21-2022 17:31-0400 Heart rate 91 /min Royce Prema BATTER OUT[employer]ELECT[employer]ICAL W[employer]ER Work Phone: [facility] 01-21-2022 17:31-0400 Respiratory rate 16 /min Royce Prema BATTER OUT[employer]ELECTRICAL WIRER Work Phone: [facility] 01-21-2022 17:31-0400 SaO2% (BldA) [Mass fraction] 97 % Royce Prema BATTER [employer]ELECTRICAL WIRER Work Phone: [facility] 01-21-2022 17:31-0400 Systolic blood pressure 116 mm[Hg] Royce Prema [employer]TER OUT[employer]ELECT[employer]ICAL W[employer]ER Work Phone: [facility] 09-24-2021 18:46-0400 Body weight 88.45 kg Royce Prema BATTER OUT[employer]ELECT[employer] W[employer]ER Work Phone: [facility] 09-24-2021 18:46-0400 Diastolic blood pressure 90 mm[Hg] Royce Prema BATTER OUT[employer]ELECTRICAL WIRER Work Phone: [facility] 09-24-2021 18:46-0400 Heart rate 97 /min Royce Prema BATTER OUT.ELECTRICAL WIRER Work Phone: [facility] 09-24-2021 18:46-0400 Respiratory rate 16 /min Royce Prema BATTER OUT[employer]ELECTRICAL WIRER Work Phone: [facility] 09-24-2021 18:46-0400 SaO2% (BldA) [Mass fraction] 100 % Royce Prema BATTER OUT.ELECTRICAL WIRER Work Phone: [facility] 09-24-2021 18:46-0400 Systolic blood pressure 138 mm[Hg] Royce Prema BATTER OUT.ELECTRICAL WIRER Work Phone: [facility] 01-02-2019 16:47-0400 BMI (Body Mass Index) 35.16 kg/m2 [facility] Work Phone: 01-02-2019 16:47-0400 Body Temperature 97.4 [degF] [facility] Work Phone: 01-02-2019 16:47-0400 Body weight 87.2 kg [facility] Work Phone: 01-02-2019 16:47-0400 BP Diastolic 80 mm[Hg] [facility] Work Phone: Encounters Encounter Date Encounter Type Care Provider Facility Start: 05-17-2023 End: 05-17-2023 ambulatory IVORY LEMUS Facility:[facility] Start: 05-04-2023 Refill Letty Montez BATTER OUT.ELECTRICAL WIRER Work Phone: [facility] Procedures Date Procedure Procedure Detail Performing Clinician Start: 05-17-2023 Follow-up visit Follow Up IVORY LEMUS Start: 03-18-2023 Screening digital breast tomosynthesis magda Polo MD Work Phone: Start: 03-05-2022 BETTY SCREENING W JENN Jessica Polo MD Work Phone: Start: 03-05-2022 Mammography Screen Wstr Start: 02-26-2022 Colonoscopy Screen Wstr Start: 02-06-2022 Lipid 1996 panel - Serum or Plasma Jessica Polo MD Work Phone: Start: 01-21-2022 Urnls dip stick/tablet rgnt auto w/o microscopy Royce Lujan BATTER OUT.ELECTRICAL WIRER Work Phone: Start: 09-25-2021 Us abdominal real time w/image limited Royce Lujan BATTER OUT.ELECTRICAL WIRER Work Phone: Start: 01-09-2021 Mammography Royce Prema BATTER OUT.ELECTRICAL WIRER Work Phone: Start: 07-28-2018 End: 07-28-2018 Esophagus Only Comments: See Note; NOTES: [facility] Imaging Services [address] [place] [address] Esophagus Only MR#: [id number] Acct: [id number] Name: ISAURA CORNELIUS Rep #: [id number] : 1970 F 47 From: Jh Lyons MD PCP: Marzia Haynes NP Status: REG CLI Study: Esophagus Only Date of Exam: 07/28/18 Exam# [id number] Ordering Dr: Julieta Brandt DO STUDY: X-RAY - ESOPHAGUS (BARIUM SWALLOW) WITH FLUOROSCOPY REASON FOR EXAM: Female, 47 years old. Dysphagia. History of thyroid carcinoma in the resection. TECHNIQUE: 15 view(s) of the esophagus were obtained following swallowing of barium. FLUOROSCOPY TIME (if supplied): (0:44) minutes/seconds COMPARISON: None. FINDINGS: There is no demonstrated esophageal foreign body. There is no demonstrated stricture or mucosal abnormality. There is a small hiatal hernia of the fundus of the stomach with gastroesophageal reflux. The patient ingested a 12 mm tablet of barium without any difficulty. Normal visualized aortic arch and descending thoracic aorta. Normal visualized pulmonary parenchyma. Normal visualized osseous structures of the thorax. RAD/Esophagus Only IMPRESSION: Small sliding hiatal hernia with gastroesophageal reflux. Electronically Signed: Jh Serena, at 15:10 EST , Service support , CC: Mariza Haynes NP; Julieta Brandt DO International Marketing Manager: Signed Julieta Brandt Work Phone: Start: 07-28-2018 End: 07-28-2018 Soft Tissue Neck WITH Contrast Comments: See Note; NOTES: [facility] Imaging Services [address] [place] [address] Soft Tissue Neck WITH Contrast MR#: [id number] Acct: [id number] Name: ISAURA CORNELIUS Rep #: [id number] : 1970 F 47 From: Wili Mae DO PCP: Mariza Haynes NP Status: REG CLI Study: Soft Tissue Neck WITH Contrast Date of Exam: 07/28/18 Exam# [id number] Ordering Dr: Julieta Brandt DO STUDY: CT SOFT TISSUE NECK WITH CONTRAST REASON FOR EXAM: Female, 47 years old. Cervical lymphadenopathy. Swollen lymph nodes more marked on the right. Pain in the right neck and face. History of thyroid cancer with radioactive iodine therapy and thyroidectomy. RADIATION DOSAGE (If Supplied By Facility): CTDIvol = ( 20.17 ) mGy, DLP = ( 574.22 ) mGycm TECHNIQUE: The patient was scanned in a multi-detector CT scanner. High resolution transaxial imaging was performed following intravenous administration of Isovue 300 100cc IV. Sagittal and coronal images were reconstructed. Individualized dose optimization techniques were used for this CT. COMPARISON: April 23, 2018. FINDINGS: Normal bilateral parotid glands. Normal bilateral scheduling agent spaces. Normal bilateral parapharyngeal spaces. Normal bilateral carotid spaces. There are some centimeter jugulodigastric lymph nodes which appear decreased in size when compared to prior study. Normal bilateral sublingual and submandibular glands and spaces. There are small stable submandibular lymph nodes. Normal visualized nasopharynx. Normal retropharyngeal space. Normal perivertebral space. Normal visualized bilateral faucial tonsils. The visualized tongue, tongue base and oropharynx are normal. The visualized cervical lymph nodes (levels I-) are within normal size limits, and maintain normal morphology. There is no demonstrated solid or cystic mass lesion. There is no abnormal contrast enhancement. Normal epiglottis, bilateral vallecula and hypopharynx. The pre-epiglottic and paraglottic adipose spaces are normal. Normal visualized bilateral piriform sinuses, aryepiglottic folds, vocal cords, and arytenoid-cricoid articulations. Normal subglottic trachea. The thyroid is not visualized. There is no evidence of mass in the anterior neck. Normal visualized pulmonary apices. There are mucous retention cysts in the right maxillary sinus. Normal visualized cervical spine. CT/Soft Tissue Neck WITH Contrast IMPRESSION: 1. Small jugulodigastric lymph nodes, decreased in size from the previous study. There is no other significant lymphadenopathy other than small stable nodes in the right submandibular region. 2. No other change from April 23, 2018 Electronically Signed: Wili Mae DO at 19:16 EST Tel [phone], Service support , CC: Mariza Haynes PARAMEDIC; Julieta Brandt DO International Marketing Manager: Signed Julieta Brandt Work Phone: Start: 04-23-2018 End: 04-23-2018 Soft Tissue Neck without Contr Comments: See Note; NOTES: [facility] Imaging Services [address] [place] [id number] Soft Tissue Neck without Contr MR#: [id number] Acct: [id number] Name: ISAURA CORNELIUS Rep #: [id number] : 1970 F 47 From: Daniel Mcgee MD PCP: Mariza Haynes NP Status: REG CLI Study: Soft Tissue Neck without Contr Date of Exam: 04/23/18 Exam# [id number] Ordering Dr: Federico Tillman STUDY: CT SOFT TISSUE NECK WITHOUT CONTRAST REASON FOR EXAM: Female, 47 years old. Tender left parotid lump present for weeks RADIATION DOSAGE (If Supplied By Facility): CTDIvol = ( 19.09 ) mGy, DLP = ( 615.08 ) mGycm TECHNIQUE: The patient was scanned in a multi-detector CT scanner. High resolution transaxial imaging was performed without the administration of intravenous contrast material. Sagittal and coronal images were reconstructed. Individualized dose optimization techniques were used for this CT. COMPARISON: None. FINDINGS: Normal bilateral parotid glands. Normal bilateral scheduling agent spaces. Normal bilateral parapharyngeal spaces. There are small soft tissue densities/nodes adjacent to the left submandibular gland corresponding to the marker placed on the patient's skin in this region. Normal visualized nasopharynx. Normal retropharyngeal space. Normal perivertebral space. Normal visualized bilateral faucial tonsils. The visualized tongue, tongue base and oropharynx are normal. There are multiple small nodes in the carotid spaces bilaterally and the posterior triangle of the neck, the largest measures about 1.2 cm in the right carotid space. There is no demonstrated solid or cystic mass lesion. The epiglottis appears to be unremarkable. The vallecula and hypopharynx appear unremarkable.. Normal visualized bilateral piriform sinuses, aryepiglottic folds, vocal cords, and arytenoid-cricoid articulations. Normal subglottic trachea. The thyroid gland is not enlarged. Normal visualized pulmonary apices. The sinuses demonstrate small soft tissue densities in the right maxillary sinus which could represent retention cyst. There is mild mucosal thickening of the right maxillary sinus. Normal visualized cervical spine. CT/Soft Tissue Neck without Contr IMPRESSION: Multiple small nodes on both sides of the neck as described above and in the region of the left submandibular gland could be reactive. Otherwise no demonstrated focal mass. Unremarkable airway. Electronically Signed: Daniel Mcgee MD at 11:09 EST Tel , Service support , CC: Mariza Haynes NP; FEDERICO TILLMAN International Marketing Manager: Signed Mariza Irajuan pablowilli Start: 02-14-2018 End: 02-15-2018 SCREENING MAMM (CAD), BILAT Comments: See Note; NOTES: [facility] Imaging Services [address] [place] [address] SCREENING MAMM (CAD), BILAT MR#: [id number] Acct: [id number] Name: ISAURA CORNELIUS Rep #: [id number] : 1970 F 47 From: Jh Lyons MD PCP: Mariza Haynes NP Status: REG CLI Study: SCREENING MAMM (CAD), BILAT Date of Exam: 02/14/18 Exam# [id number] Ordering Dr: Fatimah Solorio MD MAMMOGRAPHY - BILATERAL SCREENING REASON FOR EXAM: Female, 47 years old. Routine annual screening examination. PERTINENT HISTORY: Non-contributory. TECHNIQUE: Digital bilateral breast jenn (3D mammographic acquisition) in the CC and MLO projections. 2-D mediolateral oblique (MLO) and craniocaudad (CC) views of both breasts were obtained. CAD: Full Field Digital Mammography with Computer Added Detection was performed. COMPARISON: Comparison is made with prior study dated July 22, 2016 and August 15, 2014. FINDINGS: Breast Composition: The breasts are heterogeneously dense, which may obscure small masses. There are no dominant masses or suspicious calcifications. Stable benign-appearing bilateral axillary lymph nodes. No other significant abnormalities are identified. There has been no significant change since the prior study. BI/SCREENING MAMM (CAD), BILAT IMPRESSION: Stable bilateral screening mammogram. Yearly follow-up mammogram recommended. (A) ASSESSMENT CATEGORY: BIRADS Category 2: Benign. A letter regarding these results will be sent to the patient by the facility within 30 days. Approximately 10% of breast cancers are not detected by mammography. A normal mammogram should not delay biopsy of a clinically suspicious abnormality. [id number] Electronically Signed: Jh Lyons MD at 8:52 EDT Tel [phone], Service support , CC: Mariza Haynes NP; Fatimah Solorio MD International Marketing Manager: Signed Mariza Haynes Start: 01-17-2018 End: 02-23-2018 Orbit Face and Neck (Routine) Comments: See Note; NOTES: [facility] Imaging Services [address] [place] [address] Orbit Face and Neck (Routine) MR#: [id number] Acct: [id number] Name: ISAURA CORNELIUS Rep #: [id number] : 1970 F 47 From: Elvie Becker MD PCP: Mariza Haynes NP Status: REG CLI Study: Orbit Face and Neck (Routine) Date of Exam: 01/17/18 Exam# [id number] Ordering Dr: Ricky Dodge MD ADDENDUM by Elvie Becker MD on 02/23/18 at 0821 ADDENDUM There is mild enlargement and diffuse increased signal on T2-weighted images in the left parotid gland suggesting parotiditis. Electronically Signed: Elvie Becker MD at 8:21 EDT Tel , Service support , 02/23/18 0821 Date cc: Mariza Haynes NP; Epifanio Dodge MD * Signed ADDENDUM by Elvie Becker MD on 02/09/18 at 0620 ADDENDUM The thyroid gland has been removed. There is no abnormal mass in the thyroid fossa The lung apices are visualized on the datacap developer images and are unremarkable. The datacap developer images are part of the study and should be reviewed. Electronically Signed: Elvie Becker MD at 6:20 EDT Tel , Service support , 02/09/18 0620 Date cc: Mariza Haynes NP; Epifanio Dodge MD * Signed ADDENDUM by Elvie Becker MD on 02/23/18 at 0821 MRI/Orbit Face and Neck (Routine) 02/23/18 0828 Date cc: Mariza Haynes NP; Epifanio Dodge MD * Signed ADDENDUM by Elvie Becker MD on 02/09/18 at 0620 MRI/Orbit Face and Neck (Routine) 02/09/18 0627 Date cc: Mariza Haynes NP; Epifanio Dodge MD * Signed STUDY: MRI SOFT TISSUE NECK WITHOUT CONTRAST REASON FOR EXAM: Female, 47 years old. Lump on the left side of the face. TECHNIQUE: Standardized fat and water weighted pulse sequences were obtained in all 3 orthogonal planes without administration of contrast material. COMPARISON: None. FINDINGS: Normal right parotid gland. There is extension of the left parotid gland along the Stensen's duct consistent with normal variation explains the abnormal mass noted on clinical examination. Normal bilateral scheduling agent spaces. Normal bilateral parapharyngeal spaces. Normal bilateral carotid spaces. Normal bilateral sublingual and submandibular glands and spaces. Normal visualized nasopharynx. Normal retropharyngeal space. Normal perivertebral space. Normal visualized bilateral faucial tonsils. The visualized tongue, tongue base and oropharynx are normal. The visualized cervical lymph nodes (levels I-) are within normal size limits, and maintain normal morphology. There is no demonstrated solid or cystic mass lesion. Normal epiglottis, bilateral vallecula and hypopharynx. The pre-epiglottic and paraglottic adipose spaces are normal. Normal visualized bilateral piriform sinuses, aryepiglottic folds, vocal cords, and arytenoid-cricoid articulations. Normal subglottic trachea. Normal bilateral lobes of the thyroid gland. Normal visualized pulmonary apices. Mild mucosal thickening in the paranasal sinuses. Normal visualized cervical spine. MRI/Orbit Face and Neck (Routine) IMPRESSION: There is extension of the left parotid gland along the Stensen's duct consistent with normal variation explains the abnormal mass noted on clinical examination. Follow-up in 3 months would be recommended to ensure stability. Electronically Signed: Elvie Becker MD at 0:13 EDT Tel , Service support , CC: Mariza Haynes PARAMEDIC; Epifanio Dodge MD International Marketing Manager: Signed Mariza Haynes Start: 01-12-2018 End: 01-12-2018 Venous Duplex Lower Extremity Comments: See Note; NOTES: [facility] Cardiovascular Services [address] [place] [address] Venous Duplex US, Unilateral 01/12/18 1534 MR#: [id number] Acct: [id number] Name: ISAURA CORNELIUS Rep #: [id number] : 1970 47 From: Weston Hernandez MD Attending Dr: RG Merrill Status: REG CLI Ordering Dr: Hyacinth Moses Date: 01/12/18 Location: [facility] Sex: F C Admitted: Reason For Study: LEG SWELLING RIGHT LEFT CFV is compressible, spontaneous, phasic, GSV is normal. competent and demonstrates normal CFV is compressible, spontaneous, phasic, augmentation. competent, and demonstrates normal Procedure augmentation. Exam performed in department. FV is compressible, spontaneous, phasic, A preliminary report was called and/or faxed competent and demonstrates normal to Jean Moses. augmentation. POP V is compressible, spontaneous, phasic, competent and demonstrates normal augmentation. T/P Trunk is compressible. PTV is compressible. LT PerV is compressible. Interpretation Summary Deep veins of the left lower extremity are patent and compressible segmentally. There is no evidence of left lower extremity deep vein thrombosis. Valvular competence appears intact within the proximal deep venous system on the left . The left greater saphenous vein appears patent and compressible segmentally. Ordering Physician: RG Merrill Referring Physician: RG Merrill Performed By: Lindsey Olson RVT 01/12/18 1855 Date Weston Hernandez MD CC: Mariza Haynes NP; PARAMEDIC-C Hyacinth Moses Date Dictated: 01/12/18 1534 Date Transcribed: 01/12/18 1855 International Marketing Manager: Signed Mariza Blancawilli Start: 01-11-2018 End: 01-11-2018 CTA Chest W/WO Contrast Comments: See Note; NOTES: [facility] Imaging [facility] [address] [facility] [place] [address] CTA Chest W/WO Contrast MR#: [id number] Acct: [id number] Name: ISAURA CORNELIUS Rep #: [id number] : 1970 F 47 From: Tara Oconnell MD PCP: Mariza Haynes NP Status: REG CLI Study: CTA Chest W/WO Contrast Date of Exam: 01/11/18 Exam# [id number] Ordering Dr: Hyacinth Moses STUDY: CTA CHEST REASON FOR EXAM: Female, 47 years old. SOB. Rule out PE. RADIATION DOSAGE (If Supplied By Facility): CTDIvol = ( 11.69 ) mGy, DLP = ( 477.16 ) mGycm TECHNIQUE: The examination was performed with the intravenous administration of 100 ml of Isovue 370 contrast material. Post-processing of the angiographic images was performed, with multiplanar reformation and 3D reconstruction. Individualized dose optimization techniques were used for this CT. COMPARISON: None. FINDINGS: The heart and pericardium are normal. The aorta is normal in caliber, with no aneurysm or dissection. There is no mediastinal mass or adenopathy. There is no hilar or axillary adenopathy. There is no evidence of pulmonary embolus. Pulmonary arteries are unremarkable. There is no pleural effusion. No pleural abnormality. Lung guevara are clear. There is no pulmonary consolidation. No pulmonary mass or nodule. No interstitial or cystic disease. Visualized abdomen is unremarkable. There is no osseous abnormality. CT/CTA Chest W/WO Contrast IMPRESSION: Negative CTA chest. No evidence of pulmonary embolus or aortic dissection. Electronically Signed: Tara Oconnell MD at 18:04 EDT Tel , Service support , CC: Mariza Haynes PARAMEDIC; PARAMEDIC-C Hyacinth Moses International Marketing Manager: Signed Hyacinth Moses Work Phone: Start: 04-14-2017 End: 04-14-2017 Echocardiogram Complete Comments: See Note; NOTES: [facility] Cardiovascular Services [address] [place] [address] Echo Complete 04/14/17 1010 MR#: [id number] Acct: [id number] Name: ISAURA CORNELIUS Rep #: [id number] : 1970 46 From: Leonard Alvarez MD Attending Dr: Mariza Haynes Status: REG CLI Ordering Dr: Mariza Haynes Date: 04/14/17 Location: [facility] Sex: F C Admitted: Reason For Study: Tachycardia Procedure This was a 2D Doppler, Color Flow transthoracic echocardiogram. Exam performed in department. Left Ventricle Normal size and thickness. The estimated ejection fraction is 60 %. Stage 1 diastolic dysfunction. No regional wall motion abnormalities noted. Right Ventricle Normal size and thickness. Normal systolic function. Atria Normal left atrium. Normal right atrium. Normal atrial septum. Bubble contrast study negative for right to left interatrial shunt. Mitral Valve The mitral valve is structurally normal. No prolapse or stenosis seen. Trivial mitral valve insufficiency. Tricuspid Valve Normal tricuspid valve. Trivial tricuspid valve insufficiency. Unable to estimate RV systolic pressure/pulmonary artery pressure due to technically difficult study. Aortic Valve Normal aortic valve. Trisinus/trileaflet aortic valve. Pulmonic Valve Normal pulmonic valve. Trivial eccentric pulmonic valve insufficiency. Great Vessels Normal aortic root. Normal arch. Normal inferior vena cava. Inferior vena cava collapse with sniff. Pericardium/Pleural No pericardial effusion. Medication 22 gauge I.V. with prn adaptor inserted into right arm. Performed a rapid injection of agitated mix of 9 cc saline and 1cc air to assess for atrial septal defect. MMode/2D Measurements AND Calculations LVIDd: 4.1 cm IVSd: 1.1 cm Ao root diam: 3.0 cm LVIDs: 2.5 cm LVPWd: 0.78 cm LA dimension: 3.1 cm RVDd: 2.4 cm FS: 39.1 % __ LAV(MOD-bp): 33.5 ml LA A4 area: 13.3 cm2 RA A4 area: 11.5 cm2 LAV(MOD-bp) Indexed: 17.6 ml/m2 LAV(MOD-sp2): 31.9 ml LAV(MOD-sp4): 33.4 ml Doppler Measurements AND Calculations MV E max evelyn: 60.4 cm/sec Lat Peak E' Evelyn: 9.9 cm/sec Med Peak E' Evelyn: 5.9 cm/sec MV A max evelyn: 80.4 cm/sec E/E' lat: 6.1 E/E' med: 10.2 MV E/A: 0.75 __ Ao V2 max: 121.3 cm/sec LV V1 max: 98.1 cm/sec PA V2 max: 101.9 cm/sec Ao max P.9 mmHg LV V1 max P.9 mmHg Interpretation Summary The estimated ejection fraction is 60 %. Stage 1 diastolic dysfunction. Bubble contrast study negative for right to left interatrial shunt. Trivial mitral valve insufficiency. Trivial tricuspid valve insufficiency. Unable to estimate RV systolic pressure/pulmonary artery pressure due to technically difficult study. Ordering Physician: Mariza Haynes Performed By: Alina Philip RDCS 04/14/17 1535 Date Leonard Alvarez MD CC: Mariza Haynes Date Dictated: 04/14/17 1010 Date Transcribed: 04/14/17 153 International Marketing Manager: Signed Mariza Brasher Iradileep Work Phone: Start: 04-12-2017 End: 04-13-2017 Chest PA and Lateral Comments: See Note; NOTES: [facility] Imaging Services [address] [place] [address] Chest PA and Lateral MR#: [id number] Acct: [id number] Name: ISAURA CORNELIUS Rep #: [id number] : 1970 F 46 From: Jh Lyons MD PCP: Mariza Haynes Status: REG CLI Study: Chest PA and Lateral Date of Exam: 04/12/17 Exam# [id number] Ordering Dr: Mariza Haynes STUDY: X-RAY CHEST REASON FOR EXAM: Female, 46 years old. Tachycardia. TECHNIQUE: PA and lateral views of the chest. COMPARISON: Comparison is made with prior study dated December 20, 2014. FINDINGS: Scattered calcified granulomas. The lungs are clear. No acute abnormality is seen. There is no demonstrated pleural abnormality. Normal size heart. Normal mediastinum and anton. Normal visualized pulmonary arteries. Normal visualized aortic arch and descending thoracic aorta. Normal visualized thoracic spine. Normal visualized ribs, clavicles, and shoulders. There is no demonstrated abnormality of the visualized soft tissue structures of the upper abdomen. RAD/Chest PA and Lateral IMPRESSION: Normal x-ray examination of the chest. Electronically Signed: Jh Lyons MD at 14:58 EST Tel [phone], Service support , CC: Mariza Haynes International Marketing Manager: Signed Mariza Haynes Work Phone: Start: 03-29-2017 End: 03-29-2017 12 lead ECG Comments: See Note; NOTES: [facility] Cardiovascular Services [address] [place] [address] 12 Lead EKG 03/26/172253 MR#: [id number] Acct: [id number] Name: ISAURA CORNELIUS Rep #: [id number] : 1970 46 From: Alessio Bee MD Attending Dr: Status: DEP ER Ordering Dr: Sam Brewer MD Date: 03/26/17 Location: ED Sex: F C Admitted: Test Reason : SOB Blood Pressure : / mmHG Vent. Rate : 095 BPM Atrial Rate : 095 BPM P-R Int : 176 ms QRS Dur : 088 ms QT Int : 362 ms P-R-T Axes : 062 027 040 degrees QTc Int : 454 ms Normal sinus rhythm Normal ECG Confirmed by ABHIJEET GRACIA, ALESSIO ([id number]), staff editor KALLI ESPINOSA ([id number]) on 03/29/2017 2:48:41 PM Referred By: DARRYL Confirmed By:ALESSIO EBE MD 03/29/17 1448 Date Alessio Bee MD CC: Julieta Brandt DO Date Dictated: 03/26/17 2254 Date Transcribed: 03/26/172253 International Marketing Manager: Signed Mariza Haynes Start: 03-27-2017 End: 03-27-2017 Discharge Instruction Comments: See Note; NOTES: [facility] Medical Records Department [address] [place] [address] Discharge Instruction 03/27/17 0111 MR#: [id number] Acct: [id number] Name: ISAURA CORNELIUS Rep #: [id number] : 1970 46 From: Sam Brewer MD PCP: Julieta Brandt DO Status: REG ER ED Disposition - Plan for ED Patient: Chief Complaint: Shortness of Breath Instructions: ED Chest Pain NonCardiac Referrals: Julieta Brandt DO [Primary Care Provider] - What to do if you have Problems For any increased pain, shortness of breath, bleeding, nausea or vomiting, chest pain, or any unexpected problems, contact your Primary Care Provider. Call [facility] ([phone]) or report to the closest Emergency Room. Call 911 if necessary. 03/27/17 011 <Electronically signed by Sam Brewer MD> Date Sam Brewer MD Cosigner Signature (If Indicated): Date CC: Julieta Brandt DO Mariza Haynes Start: 03-27-2017 End: 03-27-2017 Emergency Department Summary Comments: See Note; NOTES: [facility] Medical Records Department [address] [place] [address] Emergency Department Summary 03/27/17 0056 MR#: [id number] Acct: [id number] Name: ISAURA CORNELIUS Rep #: [id number] : 1970 46 From: Sam Brewer MD PCP: Julieta Brandt DO Status: REG ER - ER Visit Summary Date of Service: 03/27/17 Chief Complaint: Chest pain and shortness of breath History of Present Illness: The patient is a 46 F who presents with 1 day of sharp chest pain and shortness of breath. She does have a prior history of DVT and pulmonary embolism. She also has a history of thyroid cancer. She is no longer an anticoagulation. Her pulmonary embolism was about 10 years ago. She did travel to [place] in October. She also complains of a week of generalized fatigue and generalized weakness. She did follow up with her nurse practitioner and had laboratory studies done and her TSH was noted to be significantly elevated. Patient states that no medication changes were made but she has a follow-up appointment in regards to this. Physical Examination: Heart rate 109 respiratory rate 20 No distress resting comfortably Heart is regular slightly tachycardic Lungs are clear Abdomen soft Extremities nontender Test Results: EKG shows normal sinus rhythm at a rate of 95. CBC BMP INR troponin all normal. CTA of the chest shows no evidence of pulmonary embolism or arterial dissection. Emergency Department Course and Treatment: Patient's chest pain does not appear to be due to a serious or life-threatening pathology. She has no pulmonary embolism aortic dissection pneumonia infiltrate or pneumothorax. She is resting comfortably. Vitals are normal on reevaluation. In regards to her week of generalized weakness and fatigue I believe this is due to hypothyroidism. Her TSH was high and she does have follow-up scheduled for this. She was instructed on specific signs and symptoms to monitor for and conditions under which to return to the emergency department. All questions answered at bedside. Patient in agreement with plan. Patient discharged. Treatment Plan: [] Disposition: Discharge Impression: Chest pain ED Disposition - Plan for ED Patient: Chief Complaint: Shortness of Breath Referrals: Julieta Brandt, DO [Primary Care Provider] - What to do if you have Problems For any increased pain, shortness of breath, bleeding, nausea or vomiting, chest pain, or any unexpected problems, contact your Primary Care Provider. Call [employer] [facility] ([phone]) or report to the closest Emergency Room. Call 911 if necessary. 03/27/17 0059 <Electronically signed by Sam Brewer MD> Date Sam Brewer MD Cosigner Signature (If Indicated): Date CC: Julieta Karly DO Mariza Haynes Start: 03-26-2017 End: 03-27-2017 CTA Chest W/WO Contrast Comments: See Note; NOTES: [facility] Imaging Services [address] [place] [address] CTA Chest W/WO Contrast MR#: [id number] Acct: [id number] Name: ISAURA CORNELIUS Rep #: [id number] : 1970 F 46 From: Bimal Suresh PCP: Julieta Brandt DO Status: REG ER Study: CTA Chest W/WO Contrast Date of Exam: 03/26/17 Exam# [id number] Ordering Dr: Sam Brewer MD STUDY: CTA CHEST REASON FOR EXAM: Female, 46 years old. Chest pain RADIATION DOSAGE (If Supplied By Facility): CTDIvol = ( 15.66 ) mGy, DLP = ( 539.53 ) mGycm TECHNIQUE: The examination was performed with the intravenous administration of 100 ml of Isovue 370 contrast material. Post-processing of the angiographic images was performed, with multiplanar reformation and 3D reconstruction. Individualized dose optimization techniques were used for this CT. COMPARISON: None. FINDINGS: Normal enhancement of the main pulmonary artery and right and left pulmonary arteries. Normal enhancement of the bilateral peripheral pulmonary arteries. There is no demonstrated pulmonary embolism. Normal thoracic aorta and visualized great vessels. There is no demonstrated aortic dissection. Normal heart and pericardium. Normal mediastinum. Normal hilar regions. Normal visualized trachea and bronchi. The lungs are well expanded. Normal pulmonary parenchyma. Normal pleura. Normal chest wall structures. Normal osseous structures. Normal visualized upper abdomen. CT/CTA Chest W/WO Contrast IMPRESSION: Normal CTA chest examination, without a demonstrated pulmonary embolism or arterial dissection. Electronically Signed: Bimal Suresh MD at 0:34 EDT , Service support , CC: Sam Brewer MD; Julieta Brandt DO International Marketing Manager: Signed Mariza Haynes Section - 2 Mee Vogel Section - 2 Mariana Slarb Nasal septoplasty Mee Loc klear Nasal septoplasty Mariana Sla rb Total thyroidectomy Mee L ocklear Total thyroidectomy Mariana S larb Plan of Treatment Date Care Activity Detail Author Start: 02-27-2032 Colonoscopy COLONOSCOPY [facility] Start: 02-27-2032 COLORECTAL CANCER SCREENING COLORECTAL CANCER SCREENING [facility] Start: 02-06-2027 Lipid 1996 panel - Serum or Plasma Lipid Screening [facility] Start: 02-06-2027 LIPID SCREEN LIPID SCREEN [facility] Start: 04-01-2026 Diabetes Screening Diabetes Screening [facility] Start: 12-25-2025 DIABETES SCREEN DIABETES SCREEN [facility] Start: 12-25-2025 Diabetes Screening Diabetes Screening [facility] Start: 03-13-2025 DIABETES SCREEN DIABETES SCREEN [facility] Start: 02-06-2025 DIABETES SCREEN DIABETES SCREEN [facility] Start: 09-25-2024 DIABETES SCREEN DIABETES SCREEN [facility] Start: 07-25-2024 HPV TESTING HPV TESTING [facility] Start: 07-25-2024 PAP TESTING PAP TESTING [facility] Start: 07-18-2024 LIPID SCREEN LIPID SCREEN [facility] Start: 07-15-2024 DIABETES SCREEN DIABETES SCREEN [facility] Start: 04-01-2024 Annual PCP Team Chronic Disease Visit Annual PCP Team Chronic Disease Visit [facility] Start: 03-18-2024 Mammography Mammogram Screening [facility] Start: 03-30-2023 ANNUAL PCP TEAM CHRONIC DISEASE VISIT ANNUAL PCP TEAM CHRONIC DISEASE VISIT [facility] Start: 03-05-2023 Mammography [facility] Start: 02-26-2023 Colonoscopy COLONOSCOPY [facility] Start: 02-26-2023 COLORECTAL CANCER SCREENING COLORECTAL CANCER SCREENING [facility] Start: 01-29-2023 Influenza vaccination [facility] Start: 01-21-2023 ANNUAL PCP TEAM CHRONIC DISEASE VISIT ANNUAL PCP TEAM CHRONIC DISEASE VISIT [facility] Start: 09-24-2022 ANNUAL PCP TEAM CHRONIC DISEASE VISIT ANNUAL PCP TEAM CHRONIC DISEASE VISIT [facility] Start: 09-12-2022 ANNUAL PCP TEAM CHRONIC DISEASE VISIT ANNUAL PCP TEAM CHRONIC DISEASE VISIT [facility] Start: 01-29-2022 Influenza vaccination INFLUENZA (#1) [facility] Start: 01-21-2022 End: 03-23-2022 25-hydroxyvitamin D3 [Mass/volume] in Serum or Plasma VITAMIN D 25 HYDROXY Lab Routine Vitamin D deficiency Postsurgical hypothyroidism Well adult exam Expected: 01/21/2022, Expires: 03/23/2022 [facility] Work Phone: Immunizations Immunization Date Immunization Notes Care Provider Fa randy 02-28-2021 influenza, injectabl e, quadrivalent, preservative free Roycealanis Lujan BATTER OUT.ELECTRICAL WIRER Work Phone: [facility] 02-28-2021 influenza virus vaccine, unspecified formulation Jessica Polo MD Work Phone: [facility] 07-28-2003 tetanus and diphther ia toxoids, adsorbed, preservative free, for adult use (2 Lf of tetanus toxoid and 2 Lf of diphtheria toxoid) Royce Lujan BATTER OUT.ELECTRICAL WIRER Work Phone: [facility] Work Phone: Payers Date Payer Category Payer Private Health Insurance [id number] [address] [facility] [id number] 2021-Present [phone] [address] [place] [address] O [id number] 2021 Private Health Insurance 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 Author Type: Nurse Practitioner Type: Progress Notes Filed: 05/17/2023 11:51 AM Note Text: Patient experiencing technical difficulties and unable to join even when sent a direct link. Has been offered an appointment for this afternoon. [facility] 05-04-2023 Miscellaneous Notes Patient last visit with PCP 04/01/23 Follow up appointment scheduled none Tiffany Perez Ma documented in this encounter [facility] 05-04-2023 Miscellaneous Notes Patient last visit with PCP 04/01/23 Follow up appointment scheduled none Tiffany Perez Ma documented in this encounter [facility] 04-08-2023 Miscellaneous Notes PA ran and state no PA needed [facility] Called [facility] to see what issue was since I'm getting no PA needed. They are ordering drug and said insurance does cover but expensive. Called patient aware to call and speak to pharmacy if she willing to pay for drug Tiffany Perez Ma Yes, OK to complete. Thank you, Letty Montez APRN.ELECTRICAL WIRER Pt stated that she was prescribed Wegovy and was told it needed PA. Ok to do PA? documented in this encounter [facility] 04-08-2023 Miscellaneous Notes Pt notified. She will take the HCTZ as needed. Mariela Valenzuela Ma Left message to return call. If she would like she could take the HCTZ prn as I believe she is taking it for her legs swelling. Royce Lujan APRN.ELECTRICAL WIRER PT INFORMED, VERBALIZED UNDERSTANDING. Pt asking if she should continue to take the hydrochlorothiazide. Please advise. Ruth Villanueva Please let patient know I received her lab results. Her TSH is in normal range, but higher than typical. I would recommend she contact her electronic engraver for recommendations since she is not feeling well. Her potassium level is still just a little bit low, but significantly. If she would like to take a small potassium supplement we could do that, but it is not completely necessary. Royce Lujan APRN.NATALIIA documented in this encounter [facility] 04-01-2023 Note HNO ID: [id number] Author: Royce Lujan APRN.CNP Service: ? Author Type: Nurse Practitioner Type: Progress Notes Filed: 04/01/2023 4:52 PM Note Text: Chief Complaint Patient presents with: Follow Up: Discuss labs and medication HPI Isaura Cornelius is a 52 year old female who presents here today for Above Complaints. Today: The last few weeks has felt off. Wondering if her thyroid may be off. Saw endocrinology in October. Wondering if she can have labs rechecked. Is on HCTZ and potassium has previously been low. Wondering if she should have this checked Weight loss: has had many ups and downs with her weight. Interested in injectable medication that would work in addition to her working on diet and exercise. Past medical history, appointments, medications, allergies reviewed. 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 Endometriosis INSOMNIA NOS 12/20/2007 Migraine without aura Other and unspecified hyperlipidemia Hyperlipidemia Other pulmonary embolism and infarction PMH - PAST MEDICAL HISTORY OF 04-15-2007 Cardiolity Stress Test - [facility] Thyroid cancer (HCC) Unspecified hypothyroidism Previous Surgical History PAST SURGICAL HISTORY Procedure Laterality Date DELIVERY ONLY 11/28/1998 , low cervical DELIVERY ONLY 06/21/2001 , low cervical COLONOSCOPY 02/26/2022 DILATION AND CURETTAGE DXAND/THER NONOBSTETRIC 05/31/1990 Dilation AND curettage EGD 02/26/2022 EGD TRANSORAL BIOPSY SINGLE/MULTIPLE 12/12/2009 HYSTEROSCOPY, DIAGNOSTIC (SEPARATE 02/06/2021 Hysteroscopy DANDC for PMB at [facility]-Dr. Polo LIG/TRNSXJ FLP TUBE ABDL/VAG APPR UNI/BI 04/30/1995 PAST SURGICAL HISTORY OF right carpal tunnel release RIGHT HEART CATHETERIZATION 05/31/2007 Cardiac cath, R heart SEPTOPLASTY/SUBMUCOUS RESECJ W/WO CARTILAGE GRF Septoplasty, Dr Fields THYROIDECTOMY SUBTOTAL/PARTIAL 03/31/2007 Patient had cancer, follicular cell THYROIDECTOMY TOTAL/COMPLETE 04/30/1995 partial, left Family History FAMILY HISTORY Problem Relation Age of Onset Depression Mother other (hypothyroidism) Mother Coronary Artery Disease Father Stroke Maternal Grandmother Ischemic Heart Disease Maternal Grandfather Ischemic Heart Disease Paternal Grandfather Prostate Cancer Paternal Grandfather Depression Son Patient Allergies ALLERGIES Allergen Reactions Contrast Dye Hives Current Medications Current Outpatient Medications on File Prior to Visit Medication Sig buPROPion XL (WELLBUTRIN XL) 300 mg 24 hr tablet Take 1 tablet by mouth once daily. Start after 150 mg daily for 7 days. lamoTRIgine (LAMICTAL) 100 mg tablet Take 1 tablet by mouth once daily. sertraline (ZOLOFT) 100 mg tablet Take 2 tablets by mouth once daily. albuterol (PROVENTIL) 2.5 mg /3 mL (0.083 %) nebulizer solution Use 3 mL via nebulizer every 4 hours as needed for wheezing/shortness of breath. Use over 5-15minutes. hydroCHLOROthiazide 12.5 mg capsule Take 1 capsule by mouth once daily. cholecalciferol (VITAMIN D-3) 5,000 unit tab Take 1 tablet by mouth once daily. SUMAtriptan (IMITREX) 25 mg tablet Take 1 tablet by mouth as needed for migraine headache (see administration instructions). As needed for migraine omeprazole (PRILOSEC) 20 mg capsule TAKE 1 CAPSULE BY MOUTH DAILY BEFORE BREAKFAST. 1/2 HR BEFORE MEAL. albuterol HFA (PROVENTIL HFA, VENTOLIN HFA) 90 mcg/actuation inhaler INHALE 2 PUFFS INSTRUCTED EVERY 4 HOURS NEEDED FOR WHEEZING/SHORTNESS OF BREATH. SYNTHROID 175 mcg tablet 1 tablet six times a week. 175 mcg x6 daily,Takes one tablet Wednesday- Wednesday multivit,calc,mins/iron/folic (ONE-A-DAY WOMENS FORMULA ORAL) Take by mouth once daily. buPROPion XL (WELLBUTRIN XL) 150 mg 24 hr tablet Take 1 tablet by mouth once daily for 7 days. Then take 300 mg daily. hyoscyamine (LEVSIN) 0.125 mg tablet Take 1 tablet by mouth every 6 hours as needed. sucralfate (CARAFATE) 1 gram tablet Take 1 tablet by mouth four times daily. No current facility-administered medications on file prior to visit. Social History Social History Tobacco Use Smoking status: Never Smokeless tobacco: Never Vaping Use Vaping Use: Never used Substance Use Topics Alcohol use: Yes Comment: rare 1-2 drinks per year Drug use: No Review of Symptoms REVIEW OF SYSTEMS See HPI, otherwise negative EXAM: BP 116/78 (BP Site: Left Arm, BP Position: Sitting, BP Cuff Size: Regular Adult) Pulse 101 Wt 84.6 kg (186 lb 9.6 oz) LMP 06/23/2019 SpO2 96% BMI 33.05 kg/m? General Appearance: Well appearing, alert, in no acute distress, well-hydrated, well nourished. and Obese. Skin: Skin color, texture, turgor normal, no suspicious rashes or lesions. Head: Normocephalic, no ma (more content not included)... [facility] 03-18-2023 Note HNO ID: [id number] Author: Jerri Dubon Mammo Tech Service: ? Author Type: Mechanical Developer Prover Type: Progress Notes Filed: 03/18/2023 12:58 PM Note Text: Radiology Service Progress Note PATIENT NAME: Isaura Cornelius DATE OF SERVICE: March 18, 2023 TIME: 12:32 PM PATIENT IDENTITY VERIFICATION COMPLETED USING TWO (2) IDENTIFIERS: Name and Date of confirmed by patient verbally. FALL SCREENING: Has the patient had 2 falls in the last year or 1 fall with injury or currently using an Ambulatory Assistive Device (Walker, Cane, Wheelchair, Crutches, etc.)? No PATIENT GENDER DATA: Female. status: : No status: NO. PATIENT RELEVANT IMPLANT DATA REVIEWED: Not Applicable RADIOLOGY DEPARTMENT: Mammography PERIPHERAL IV DATA: Not applicable SIGNED BY: Elif Fink March 18, 2023 12:32 PM [facility] 03-18-2023 History of Present illness Narrative Radiology Service Progress Note PATIENT NAME: Isaura Cornelius DATE OF SERVICE: March 18, 2023 TIME: 12:32 PM PATIENT IDENTITY VERIFICATION COMPLETED USING TWO (2) IDENTIFIERS: Name and Date of confirmed by patient verbally. FALL SCREENING: Has the patient had 2 falls in the last year or 1 fall with injury or currently using an Ambulatory Assistive Device (Walker, Cane, Wheelchair, Crutches, etc.)? No PATIENT GENDER DATA: Female. status: : No status: NO. PATIENT RELEVANT IMPLANT DATA REVIEWED: Not Applicable RADIOLOGY DEPARTMENT: Mammography PERIPHERAL IV DATA: Not applicable SIGNED BY: Elif Fink March 18, 2023 12:32 PM documented in this encounter [facility] 03-05-2023 Miscellaneous Notes Addended by: JESSICA POLO on: 03/05/2023 09:16 AM Modules accepted: Orders Mammogram ordered documented in this encounter [facility] 01-01-2023 Note HNO ID: [id number] Author: Royce Lujan APRN.CNP Service: ? Author Type: Nurse Practitioner Type: Progress Notes Filed: 01/01/2023 3:57 PM Note Text: The following approved medication requests have been transmitted electronically. Requested Prescriptions Signed Prescriptions Disp Refills azithromycin (ZITHROMAX Z-KENDRICK) 250 mg tablet 6 tablet 0 Sig: Take 2 tablets day one, then, 1 tablet daily until gone. Royce Lujan APRN.CNP [facility] 01-01-2023 History of Present illness Narrative The following approved medication requests have been transmitted electronically. Requested Prescriptions Signed Prescriptions Disp Refills azithromycin (ZITHROMAX Z-KENDRICK) 250 mg tablet 6 tablet 0 Sig: Take 2 tablets day one, then, 1 tablet daily until gone. Royce Lujan APRN.CNP documented in this encounter [facility] 11-17-2022 Note HNO ID: [id number] Author: Mariza Gonsalves APRN.CNP Service: ? Author Type: Nurse Practitioner Type: Progress Notes Filed: 11/17/2022 2:21 PM Note Text: PSYC NEW - PSYCHIATRIC ASSESSMENT Patient was seen for an initial evaluation. With the patient consent, visit was performed virtually. All information is from Patient report except when noted. This evaluation is NOT intended for forensic, disability or child custody purposes. I have communicated my name and active licensure. The patient's identity and physical location were verified at the time of this visit. Either the patient or their legal sales training representative has been informed of the risks and benefits of -- and alternatives to -- treatment through a remote evaluation and consents to proceed with the evaluation remotely. 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 HPI: Patient reports she was initially seen by [facility] for PTSD. Patient reports last visit 02/2022. Reported current med list Lamictal 100 mg daily Zoloft 200 mg daily Wellbutrin XL 150 mg daily Patient reports prn ativan-last noted narcotic order 12/2021 per PDMP Past failed meds Prozac-delusional Patient reports she switched jobs 02/2022, and reports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 NAME: Isaura Cornelius DATE OF SERVICE: March 05, 2022 TIME: 8:58 AM PATIENT IDENTITY VERIFICATION COMPLETED USING TWO (2) IDENTIFIERS: Name and Date of confirmed by patient verbally. FALL SCREENING: Has the patient had 2 falls in the last year or 1 fall with injury or currently using an Ambulatory Assistive Device (Walker, Cane, Wheelchair, Crutches, etc.)? No PATIENT GENDER DATA: Female. status: : No status: NO. PATIENT RELEVANT IMPLANT DATA REVIEWED: Not Applicable RADIOLOGY DEPARTMENT: Mammography PERIPHERAL IV DATA: Not applicable SIGNED BY: RT Ede(R) March 05, 2022 8:58 AM documented in this encounter [facility] 03-03-2022 History of Present illness Narrative Images from the original note were not included. PSYC FOLLOW UP - PSYCHIATRIC PROGRESS NOTE DIAGNOSIS: Generalized Anxiety Disorder MDD, recurrent, moderate Chronic PTSD GAF: -60-51 Moderate symptoms or moderate difficulty in social, occupational or school functioning. TREATMENT PLAN: Continue Wellbutrin, Lamictal, Buspar, and Zoloft at the same dose. Utilize xanax as needed for overwhelming episodes of anxiety. Follow up in 3 months or as needed The effects and side effects of all the medications were reviewed in detail with the patient. She is aware of the rash side effects associated with Lamictal. Patient is in agreement with the treatment plan and aware to reach out with any questions, concerns, or worsening of symptoms prior to the next appointment. PDMP report was reviewed and found to be appropriate without any signs of misuse or diversion. CC: Follow up regarding mood and anxiety With the patient consent, visit was performed virtually. HPI: Isaura Cornelius is a 51 year old Female with a history of KENJI, MDD, and PTSD presenting today for follow-up. Date of last visit: 01/12/2022 Plan from last visit: Continue Lamictal, Buspar, and Zoloft at the same dose. Utilize xanax for increased episodes of anxiety or panic. Contact HR to discuss intermittent FMLA paperwork. Reach out to this provider in 2 weeks to share an update regarding the increase in Lamictal and her work related stress. Schedule an appointment to start trauma focused therapy and EMDR. Follow up in 4 to 6 weeks. Today Isaura shares that she has been feeling better. Restarting the Wellbutrin was helpful for her mood. She did submit intermittent FMLA. But felt that it was too much stress and she gave a three week notice for resignation. Her FMLA was taking too long from the work's end to process. Her manager knowledge was not supportive and it was a very toxic situation. Since she is not working currently, she has been feeling better. She worries about her health insurance coverage lapsing. She has explored other work opportunities. 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 She was able to negotiate to take a day off during the week at her new job. Isaura still finds herself over thinking. Feels that her self-esteem has taken a hit. In the time off she has been engaging in coping skills such as painting which she used to enjoy before. She has only needed to use her xanax twice due to work related stress. Interval Progress: Improved Risks and benefits of the medication, including any black box warnings, were discussed with the patient. Social History: See HPI PATIENT DATA: Generalized Anxiety Disorder Scale (KENJI-7) KENJI - 7 SCORES 01/02/2022 01/12/2022 03/01/2022 KENJI-7 Score 16 18 10 (0-4) minimal anxiety, (5-9) mild anxiety, (10-14) moderate anxiety, (15-21) severe anxiety Patient Health Questionnaire (PHQ-9) PHQ-9 01/02/2022 01/12/2022 03/01/2022 Score 14 19 10 (0-4) minimal depression, (5-9) mild depression, (10-14) moderate depression, (15-19) moderately severe depression, (20-27) severe depression ROS: General: Negative for fever, malaise, unintentional weight loss HEENT: Negative for recent changes in vision or hearing, no nasal drainage Respiratory: Negative for cough, wheezing or SOB Cardiovascular: Negative for chest pain GI: Negative for nausea, vomiting, change in bowel habits MUSCULOSKELETAL: Negative for acute back or joint pain SKIN: Negative for rash NEURO: Negative for headaches, seizures, focal neurological deficits All other systems negative. VITAL SIGNS: BP Temp Pulse Resp SpO2 MENTAL STATUS EXAMINATION: Appearance: Appropriately groomed, appears stated age Behavior: Appropriately engaged Psychomotor: No psychomotor agitation Cognition Level of Consciousness: Awake and alert. No fluctuation in wakefulness. Orientation: Grossly oriented Memory: Intact Attention/Concentration: Good Fund of Knowledge: Able to demonstrate an awareness of current events. Mood: Euthymic Affect: Congruent to mood Speech/Language: Appropriate tone, prosody, nwaaf, phonetics, and syntax Thought Form: Goal-directed. No loosening of associations. Thought Content: No delusions noted or endorsed. Perceptual Disturbances: Did not appear to respond to auditory stimuli. Safety: Suicidal Ideations: No suicidal ideation, intent or plan. Homicidal Ideations: No homicidal ideation, intent or plan. Insight: Appropriate Judgment: Appropriate I spent a total of 28 minutes on the date of the service which included preparing to see the patient, [id number] patient care, completing clinical documentation, and counseling and educating the patient/family/caregiver, ordering medications/labs. Ivory Lemus APRN.NATALIIA March 03, 2022 3:31 PM This note was partially generated using [facility] voice recognition system. Note was reviewed for accuracy. There may be minor misspellings or grammar miscues with [facility] voice recognition. \ documented in this encounter [facility] 02-13-2022 Miscellaneous Notes Titrating dose. Pt is now taking 100 mg documented in this encounter [facility] 02-13-2022 Miscellaneous Notes Patient phones requesting refills as follows: Requested Prescriptions Pending Prescriptions Disp Refills omeprazole (PRILOSEC) 20 mg capsule [Pharmacy Med Name: OMEPRAZOLE DR 20 MG CAPSULE] 30 capsule 11 Sig: TAKE 1 CAPSULE BY MOUTH DAILY BEFORE BREAKFAST. 1/2 HR BEFORE MEAL. MEDARDO-01/21/22 Labs-02/06/22 NOV-none med filled 02/07/21 Please review and advise. Barb Bañuelos LPN documented in this encounter [facility] 02-03-2022 History of Present illness Narrative HISTORY AND PHYSICAL Isaura Cornelius 1970 REFERRING PHYSICIAN: MD Abraham CHIEF COMPLAINT: Consult (Colonoscopy) HPI: The patient is a 51 year old female referred for endoscopy. Isaura notes a 2-month history of loose BMs occurring 3-4 x/day. States stools will vary in consistency from very liquid to seedy in appearance. Denies aggravating/alleviating factors. Denies travel, sick contacts, recent antibiotic use, or changes in diet or medications. Patient denies weight changes, blood in stools, black tarry stools or abdominal pain. Denies family history of colon issues. The patient NOTES upper GI complaints-acid reflux. Isaura has undergone remote prior endoscopy, records not currently available for review. Patient recalls possibly a benign polyp in the past. Patient's past medical history is significant for thyroid cancer, gastritis, hyperlipidemia, endometriosis, history of PE. Patient follows with Royce Lujan CNP in primary care for her chronic medical conditions. Patient denies chest pain, shortness of breath or recent hospitalizations. Denies problems with sedation in the past. 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 04/2007 thyroid Chronic depressive personality disorder Endometriosis INSOMNIA NOS 12/20/2007 Migraine without aura Other and unspecified hyperlipidemia Hyperlipidemia Other pulmonary embolism and infarction PMH - PAST MEDICAL HISTORY OF 04-15-2007 Cardiolity Stress Test - [facility] Thyroid cancer (HCC) Unspecified hypothyroidism PAST SURGICAL HISTORY Procedure Laterality Date DELIVERY ONLY 11/28/1998 , low cervical DELIVERY ONLY 06/21/2001 , low cervical DILATION & CURETTAGE DX&/THER NONOBSTETRIC 05/31/1990 Dilation & curettage EGD TRANSORAL BIOPSY SINGLE/MULTIPLE 12/12/2009 HYSTEROSCOPY, DIAGNOSTIC (SEPARATE 02/06/2021 Hysteroscopy D&C for PMB at [facility]-Dr. Polo LIG/TRNSXJ FLP TUBE ABDL/VAG APPR UNI/BI 04/30/1995 PAST SURGICAL HISTORY OF right carpal tunnel release RIGHT HEART CATHETERIZATION 05/31/2007 Cardiac cath, R heart SEPTOPLASTY/SUBMUCOUS RESECJ W/WO CARTILAGE GRF Septoplasty, Dr Fields THYROIDECTOMY SUBTOTAL/PARTIAL 03/31/2007 Patient had cancer, follicular cell THYROIDECTOMY TOTAL/COMPLETE 04/30/1995 partial, left Current Outpatient Medications Medication Sig estradiol (ESTRACE) 0.01 % (0.1 mg/gram) vaginal cream Use 1 g vaginally once daily. One gram nightly x 2 weeks then use 1 gram 2-3 times weekly for maintenance cholecalciferol (VITAMIN D-3) 5,000 unit tab Take 1 tablet by mouth once daily. ALPRAZolam (XANAX) 0.25 mg tablet Take 1 tablet by mouth once daily as needed for anxiety for up to 30 days. sertraline (ZOLOFT) 100 mg tablet Take 2 tablets by mouth once daily. lamoTRIgine (LAMICTAL) 100 mg tablet Take 1 tablet by mouth once daily. busPIRone (BUSPAR) 7.5 mg tablet Take 1 tablet by mouth three times daily. hydroCHLOROthiazide (HYDRODIURIL, ESIDRIX) 12.5 mg capsule Take 1 capsule by mouth once daily. SUMAtriptan (IMITREX) 25 mg tablet Take 1 tablet by mouth as needed for migraine headache (see administration instructions). As needed for migraine albuterol HFA (PROVENTIL HFA, VENTOLIN HFA) 90 mcg/actuation inhaler INHALE 2 PUFFS INSTRUCTED EVERY 4 HOURS NEEDED FOR WHEEZING/SHORTNESS OF BREATH. SYNTHROID 175 mcg tablet 1 tablet six times a week. 175 mcg x6 daily,Takes one tablet Wednesday- Wednesday omeprazole (PRILOSEC) 20 mg capsule Take 1 capsule by mouth daily before breakfast. 1/2 hr before meal. albuterol (PROVENTIL) 2.5 mg /3 mL (0.083 %) nebulizer solution Use 3 mL via nebulizer every 4 hours as needed for Wheezing/Shortness of Breath. Use over 5-15minutes. multivit,calc,mins/iron/folic (ONE-A-DAY WOMENS FORMULA ORAL) Take by mouth once daily. No current facility-administered medications for this visit. ALLERGIES: Contrast Dye PERSONAL HISTORY: Social History Tobacco Use Smoking status: Never Smokeless tobacco: Never Vaping Use Vaping Use: Never used Substance Use Topics Alcohol use: Yes Comment: rare 1-2 drinks per year Drug use: No FAMILY HISTORY: FAMILY HISTORY Problem Relation Age of Onset Depression Mother other (hypothyroidism) Mother Coronary Artery Disease Father Stroke Maternal Grandmother Ischemic Heart Disease Maternal Grandfather Ischemic Heart Disease Paternal Grandfather Prostate Cancer Paternal Grandfather Depression Son REVIEW OF SYMPTOMS: The review of systems data was entered by the nurse and reviewed by me Nursing Notes: Patrica Garcia 02/03/2022 9:38 AM Signed REVIEW OF SYSTEMS: General: The patient NOTES fatigue, denies weight loss, NOTES weight gain, NOTES feeling hot, and denies feelings of cold. Eyes: The patient denies glaucoma, denies eye injury/surgery, \ glasses or contacts. Ear/Nose/Throat: The patient NOTES allergies, denies hayfever, denies ear infections, and denies bloody noses. Cardiovascular: The patient denies chest pain, denies heart disease, denies high blood pressure,denies cardiac stent, denies prior heart attack, NOTES irregular heart beat, denies high cholesterol, denies poor circulation, denies heart failure, other cardiac issues, denies claudication, denies cold feet, denies peripheral arterial stent. Respiratory: The patient NOTES tuberculosis, denies pneumonia, denies frequent cough, denies pulmonary embolism, denies shortness of breath, and denies coughing up blood. Gastrointestinal: The patient denies difficulty swallowing, NOTES acid reflux, denies ulcers, denies vomiting, denies jaundice/hepatitis, denies gallbladder problems, denies black or tarry stools, denies hemorrhoids, denies bleeding from rectum, denies diverticulitis, denies constipation, NOTES diarrhea, NOTES loss of stool control, and denies hernias. Kidney/Bladder: The patient denies kidney stones, denies urine infections, and denies bloody urine. Skin: The patient denies a history of skin cancer, denies bleeding/changing moles, and denies a history of skin rash. Neurologic: The patient denies a history of epilepsy/convulsions, denies headaches, denies head/spinal injuries, and denies stroke/TIA. Psychiatric: The patient NOTES psychiatric medications, NOTES depression, and denies voices, denies substance abuse. Endocrine: The patient NOTES thyroid disorders, denies diabetes, and denies hormonal problems. Hematologic: The patient denies a history of bruising, denies bleeding, and denies anemia, NOTES blood clots. Infections: The patient denies a history of measles and mumps, denies rheumatic fever, and denies sexually transmitted diseases. Musculoskeletal: The patient denies back pain/injury, denies back problems, denies sciatica, denies knee/foot trouble, denies arthritis, or denies gout. When was patient's last Mammogram screening? 02/2021 Last Colonoscopy: Age 21 Patrica Garcia I have confirmed and edited as necessary, the PFSH and ROS obtained by others. Lily Che PA-C PHYSICAL EXAMINATION: General: The patient is 51 year old female, well nourished, well hydrated in no acute distress. The patient is oriented to time, place, and person. VITALS: Blood pressure 117/78, pulse 107, temperature 36.6 C (97.8 F), height 160 cm (5' 3 ), weight 85.3 kg (188 lb), last menstrual period 06/23/2019, SpO2 99 %. Body mass index is 33.3 kg/m . HEENT: Normal cephalic, ataumatic, pupils are equally round, sclera are anicteric, mucous membranes are moist, oropharynx is clear. Neck has no masses, asymmetry or lymphadenopathy. Respiratory: Clear to auscultation and percussion. Normal respiratory excursion and pattern. Cardiac: Examination is regular rate and rhythm. Normal S1/S2 Abdominal exam: Soft, nontender, with no palpable masses. No hepatosplenomegaly. No palpable hernias. Extremities: no clubbing, cyanosis or edema. No adenopathy. LABORATORY VALUES: As Noted RADIOLOGIC STUDIES: As Noted Assessment IMPRESSION: change in bowel habits, loose stools, fecal urgency PLAN: I have reviewed my findings with the surgeon. Will plan for upper and lower endoscopy with biopsies. We discussed the risks and benefits of the planned endoscopy. I have informed the patient that complications can occur including failure to complete the endoscopy and perforation. The patient had the opportunity to ask questions concerning the planned endoscopy. My staff has also explained the procedure to the patient in understandable terms and has given the patient printed material concerning the procedure. The patient freely consents to surgery. The patient was offered a surgery/procedure at a [facility] facility. I have counseled the patient regarding the risk of exposure to and/or potential harm posed by the COVID-19 virus with having a surgery/procedure at this time versus the risk of delaying the surgery/procedure. It is not possible to know either the risk of delaying the surgery or procedure or chance of getting an infection with perfect accuracy, but a joint decision was made between the patient and myself to proceed at this time with endoscopy. I plan to use Golytely bowel preparation Diagnoses: (R19.4) Change in bowel habits (primary encounter diagnosis) (R15.2) Fecal urgency (R19.5) Loose stools (K21.9) Gastroesophageal reflux disease, unspecified whether esophagitis present I spent a total of 32 minutes on the date of the service which included preparing to see the patient, [id number] patient care, completing clinical documentation, obtaining and/or reviewing separately obtained history, performing a medically appropriate examination, counseling and educating the patient/family/caregiver, and ordering medications, tests, or procedures. Lily Che PA-C documented in this encounter [facility] 02-03-2022 Nurse Note REVIEW OF SYSTEMS: General: The patient NOTES fatigue, denies weight loss, NOTES weight gain, NOTES feeling hot, and denies feelings of cold. Eyes: The patient denies glaucoma, denies eye injury/surgery, \ glasses or contacts. Ear/Nose/Throat: The patient NOTES allergies, denies hayfever, denies ear infections, and denies bloody noses. Cardiovascular: The patient denies chest pain, denies heart disease, denies high blood pressure,denies cardiac stent, denies prior heart attack, NOTES irregular heart beat, denies high cholesterol, denies poor circulation, denies heart failure, other cardiac issues, denies claudication, denies cold feet, denies peripheral arterial stent. Respiratory: The patient NOTES tuberculosis, denies pneumonia, denies frequent cough, denies pulmonary embolism, denies shortness of breath, and denies coughing up blood. Gastrointestinal: The patient denies difficulty swallowing, NOTES acid reflux, denies ulcers, denies vomiting, denies jaundice/hepatitis, denies gallbladder problems, denies black or tarry stools, denies hemorrhoids, denies bleeding from rectum, denies diverticulitis, denies constipation, NOTES diarrhea, NOTES loss of stool control, and denies hernias. Kidney/Bladder: The patient denies kidney stones, denies urine infections, and denies bloody urine. Skin: The patient denies a history of skin cancer, denies bleeding/changing moles, and denies a history of skin rash. Neurologic: The patient denies a history of epilepsy/convulsions, denies headaches, denies head/spinal injuries, and denies stroke/TIA. Psychiatric: The patient NOTES psychiatric medications, NOTES depression, and denies voices, denies substance abuse. Endocrine: The patient NOTES thyroid disorders, denies diabetes, and denies hormonal problems. Hematologic: The patient denies a history of bruising, denies bleeding, and denies anemia, NOTES blood clots. Infections: The patient denies a history of measles and mumps, denies rheumatic fever, and denies sexually transmitted diseases. Musculoskeletal: The patient denies back pain/injury, denies back problems, denies sciatica, denies knee/foot trouble, denies arthritis, or denies gout. When was patient's last Mammogram screening? 02/2021 Last Colonoscopy: Age 21 Patrica Garcia documented in this encounter [facility] 01-29-2022 History of Present illness Narrative Isaura is a 51 year old who presents for an annual gynecologic exam with complaints, painful sex . No further PMB. Postmenopausal: Yes HRT use: No. Last Pap: 07/31/2019 normal HPV: 07/28/2019 negative History of abnormal pap: No Last mammogram: 2020 normal History of abnormal mammogram: No Sexually active: Yes History of STDS: None Patient concerns for STD exposure: No. 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 Endometriosis INSOMNIA NOS 12/20/2007 Migraine without aura Other and unspecified hyperlipidemia Hyperlipidemia Other pulmonary embolism and infarction PMH - PAST MEDICAL HISTORY OF 04-15-2007 Cardiolity Stress Test - [facility] Thyroid cancer (HCC) Unspecified hypothyroidism PAST SURGICAL HISTORY Procedure Laterality Date DELIVERY ONLY 11/28/1998 , low cervical DELIVERY ONLY 06/21/2001 , low cervical DILATION & CURETTAGE DX&/THER NONOBSTETRIC 05/31/1990 Dilation & curettage EGD TRANSORAL BIOPSY SINGLE/MULTIPLE 12/12/2009 HYSTEROSCOPY, DIAGNOSTIC (SEPARATE 02/06/2021 Hysteroscopy D&C for PMB at [facility]-Dr. Polo LIG/TRNSXJ FLP TUBE ABDL/VAG APPR UNI/BI 04/30/1995 PAST SURGICAL HISTORY OF right carpal tunnel release RIGHT HEART CATHETERIZATION 05/31/2007 Cardiac cath, R heart SEPTOPLASTY/SUBMUCOUS RESECJ W/WO CARTILAGE GRF Septoplasty, Dr Fields THYROIDECTOMY SUBTOTAL/PARTIAL 03/31/2007 Patient had cancer, follicular cell THYROIDECTOMY TOTAL/COMPLETE 04/30/1995 partial, left FAMILY HISTORY Problem Relation Age of Onset Depression Mother other (hypothyroidism) Mother Coronary Artery Disease Father Stroke Maternal Grandmother Ischemic Heart Disease Maternal Grandfather Ischemic Heart Disease Paternal Grandfather Prostate Cancer Paternal Grandfather Depression Son SOCIAL HISTORY Social History Tobacco Use Smoking status: Never Smokeless tobacco: Never Vaping Use Vaping Use: Never used Substance Use Topics Alcohol use: Yes Comment: rare 1-2 drinks per year Drug use: No REVIEW OF SYSTEMS Abdomen: No abdominal pain, nausea, vomiting, or constipation. ++ diarrhea- seeing gi next week. No bloating, early satiety, indigestion, or increased flatulence. Bladder: No dysuria, gross hematuria, urinary frequency, urinary urgency, or incontinence Breast: No breast lumps, nipple d/c, overlying skin changes, redness or skin retraction Allergies and current medication updated:Yes EXAM: BP 120/78 Ht 5' 3 (1.60m) Wt 189 lb (85.7kg) LMP 06/23/2019 BMI 33.49 kg/(m^2). GENERAL: pleasant, female in no apparent distress HEENT: Normocephalic, atraumatic, mucus membranes moist, and no lesions NECK: Supple, full range of motion, no adenopathy, and thyroid normal DERMATOLOGY: Normal, without lesions, non-icteric, and non-hirsute BREAST: soft, non-tender, symmetric, no dominant mass, normal nipple-areolar complex, no lymphadenopathy, and no nipple discharge ABDOMEN: soft, non-tender, and no masses PELVIC: external genitalia normal, normal Bartholin's glands, urethra, Red Cross's glands, no vulvar lesions, no cervical lesions, good vaginal support, physiologic discharge present, normal appearing perineal body and perianal region- atrophic changes BIMANUAL: uterus normal size, shape and consistency, no adnexal masses, and non-tender RECTOVAGINAL: deferred. NEURO: alert and oriented x3,exam grossly non-focal EXTREMITIES: normal ASSESSMENT/PLAN: 1) Health maintenance: Pap/HPV up to date. Mammogram ordered Nutrition, exercise and routine health maintenance exams reviewed. Calcium/Vitamin D supplementation information provided. Colon cancer screening: seeing GI next week 2) Follow up one year or sooner as needed 3) vaginal atrophy reviewed- Discussed vaginal estrogen. Has remote h/o PE when on OCPs- discussed contraindication but reviewed that this is more local effect on vaginal tissue. Pt would like to try to see if there is improvement. Also reviewed coconut oil as lubrication. Jessica Burrell MD It Desktop Support Technician offered: Patient declines. documented in this encounter [facility] 01-22-2022 History of Present illness Narrative [facility] OPEN ACCESS QUESTIONNAIRE 1. Are you currently having any new or unusual stomach/gastrointestinal issues at this time such as constipation, diarrhea, abdominal pain, rectal bleeding etc?Yes / Diarrhea 2. Do you have any difficulty swallowing? No 3. Do you have any implanted devices such as a defibrillator, pacemaker, cardiac stents or deep brain stimulator? No 4. Do you take any Blood thinners such as Coumadin, Plavix, Xarelto, Eliquis, Brilinta or any other blood thinner? No 5. Do you have any new or past cardiac (heart) or pulmonary (lung) issues? 6. Do you currently use any oxygen? Yes / P.E 7. Have you been hospitalized in the past 6 weeks? No 8. Have you had difficulty with anesthesia previously re: Difficult intubation? No Other difficulty or allergic reaction to anesthesia other than post op N/V? No 9. Are you on dialysis? No 10. Do you have any bleeding disorders such as hemophilia or Factor 5? No 11. Are you an Insulin Dependent Diabetic? No IF ANY OF THE TOP ELEVEN QUESTIONS ARE ANSWERED YES PLEASE SCHEDULE THE PATIENT FOR A CONSULT. scheduled 12. Is the patient's BMI 40 or greater? No:Body mass index is 33.98 kg/m .. 13. Do you take any narcotics or anti-Anxiety medications? Yes / anxiety and depression meds 14. Do you use any illegal or recreational drugs including marijuana? No 15. Any alcohol use: No 16. Have you been diagnosed with chronic liver disease such as hepatitis or cirrhosis? No 17. Do you have a seizure disorder? No 18. Do you have ulcerative colitis or Crohn's disease? No 19. Are you or could you be ? No 20. Any other important health information we should be made aware of prior to your colonoscopy? THYROIDECTOMY To be completed by LIP: Did patient have MAC anesthesia with a previous endoscopy procedure? Yes: Patient will require a Gastro-General Surgery Consultation. Patient appropriate for Open Access Colonoscopy: No: NOT appropriate for Open Access Procedure Checklist: Prior to closing the encounter: Complete questionnaire: Yes Confirm Prep order has been Ordered/Pended: No. Patient's procedure could be delayed if not given the script for the prep. Please ensure the prep is escripted to pharmacy or printed. Instructions for the prep will print upon filing or pending this smartset. Please send all open access questionnaires to [facility] Sched Pool #[id number] 1st attempt to schedule colonoscopy, left [facility] 01/22 Chief Complaint Patient presents with: Physical UTI HPI Isaura Cornelius is a 51 year old female who presents here today for Above Complaints. Today: For the last 2 months, at least 3-4 times-unformed seedy stool. Occasionally leaks out and doesn't notice it happening. Noticeable lower abdominal bilateral discomfort. No fever. Urine-every time with urination has severe burning. For about a week. Has urinary frequency. Is not itchy. No white discharge. Hurts just sitting still. Putting vaseline in the area to coat it. Sex is very painful. Past medical history, appointments, medications, allergies reviewed. 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 Endometriosis INSOMNIA NOS 12/20/2007 Migraine without aura Other and unspecified hyperlipidemia Hyperlipidemia Other pulmonary embolism and infarction PMH - PAST MEDICAL HISTORY OF 04-15-2007 Cardiolity Stress Test - [facility] Thyroid cancer (HCC) Unspecified hypothyroidism Previous Surgical History PAST SURGICAL HISTORY Procedure Laterality Date DELIVERY ONLY 11/28/1998 , low cervical DELIVERY ONLY 06/21/2001 , low cervical DILATION & CURETTAGE DX&/THER NONOBSTETRIC 05/31/1990 Dilation & curettage EGD TRANSORAL BIOPSY SINGLE/MULTIPLE 12/12/2009 HYSTEROSCOPY, DIAGNOSTIC (SEPARATE 02/06/2021 Hysteroscopy D&C for PMB at [facility]-Dr. Polo LIG/TRNSXJ FLP TUBE ABDL/VAG APPR UNI/BI 04/30/1995 PAST SURGICAL HISTORY OF right carpal tunnel release RIGHT HEART CATHETERIZATION 05/31/2007 Cardiac cath, R heart SEPTOPLASTY/SUBMUCOUS RESECJ W/WO CARTILAGE GRF Septoplasty, Dr Fields THYROIDECTOMY SUBTOTAL/PARTIAL 03/31/2007 Patient had cancer, follicular cell THYROIDECTOMY TOTAL/COMPLETE 04/30/1995 partial, left Family History FAMILY HISTORY Problem Relation Age of Onset Depression Mother other (hypothyroidism) Mother Coronary Artery Disease Father Stroke Maternal Grandmother Ischemic Heart Disease Maternal Grandfather Ischemic Heart Disease Paternal Grandfather Prostate Cancer Paternal Grandfather Depression Son Patient Allergies ALLERGIES Allergen Reactions Contrast Dye Hives Current Medications Current Outpatient Medications on File Prior to Visit Medication Sig ALPRAZolam (XANAX) 0.25 mg tablet Take 1 tablet by mouth once daily as needed for anxiety for up to 30 days. sertraline (ZOLOFT) 100 mg tablet Take 2 tablets by mouth once daily. lamoTRIgine (LAMICTAL) 100 mg tablet Take 1 tablet by mouth once daily. busPIRone (BUSPAR) 7.5 mg tablet Take 1 tablet by mouth three times daily. cholecalciferol (VITAMIN D-3) 5,000 unit tab Take 1 tablet by mouth once daily. hydroCHLOROthiazide (HYDRODIURIL, ESIDRIX) 12.5 mg capsule Take 1 capsule by mouth once daily. SUMAtriptan (IMITREX) 25 mg tablet Take 1 tablet by mouth as needed for migraine headache (see administration instructions). As needed for migraine albuterol HFA (PROVENTIL HFA, VENTOLIN HFA) 90 mcg/actuation inhaler INHALE 2 PUFFS INSTRUCTED EVERY 4 HOURS NEEDED FOR WHEEZING/SHORTNESS OF BREATH. SYNTHROID 175 mcg tablet 1 tablet six times a week. 175 mcg x6 daily,Takes one tablet Wednesday- Wednesday omeprazole (PRILOSEC) 20 mg capsule Take 1 capsule by mouth daily before breakfast. 1/2 hr before meal. albuterol (PROVENTIL) 2.5 mg /3 mL (0.083 %) nebulizer solution Use 3 mL via nebulizer every 4 hours as needed for Wheezing/Shortness of Breath. Use over 5-15minutes. multivit,calc,mins/iron/folic (ONE-A-DAY WOMENS FORMULA ORAL) Take by mouth once daily. No current facility-administered medications on file prior to visit. Social History Social History Tobacco Use Smoking status: Never Smokeless tobacco: Never Vaping Use Vaping Use: Never used Substance Use Topics Alcohol use: Yes Comment: rare 1-2 drinks per year Drug use: No Review of Symptoms REVIEW OF SYSTEMS See HPI, otherwise negative EXAM: BP 116/84 (BP Site: Left Arm, BP Position: Sitting, BP Cuff Size: Regular Adult) Pulse 91 Resp 16 Ht 159.5 cm (5' 2.8 ) Wt 86.5 kg (190 lb 9.6 oz) LMP 06/23/2019 SpO2 97% BMI 33.98 kg/m General Appearance: Well appearing, alert, in no acute distress, well-hydrated, well nourished. and Obese. Lungs: Lungs clear to auscultation. No wheezing, rhonchi, rales.. Heart: RRR without murmur, gallop, or rubs. No ectopy. Abdomen: Normal abdominal exam, Abdomen soft, non-tender. Bowel sounds normal. No masses, organomegaly. Health Maintenance List HEPATITIS B(1 of 3 - 3-dose series) Never done COVID-19 VACCINE(1) Never done HEPATITIS C SCREENING Never done HIV SCREENING Never done DTAP,TDAP,TD(1 - Tdap) due on 07/29/2003 COLORECTAL CANCER SCREENING Never done SHINGRIX VACCINE(1 of 2) Never done MAMMOGRAM due on 01/09/2022 INFLUENZA(1) due on 01/29/2022 ANNUAL PCP TEAM CHRONIC DISEASE VISIT due on 09/24/2022 LIPID SCREEN due on 07/18/2024 PAP TESTING due on 07/25/2024 HPV TESTING due on 07/25/2024 DIABETES SCREEN due on 09/25/2024 Data reviewed Previous records, office notes ASSESSMENT/PLAN: 1. Well adult exam - ICD9: V70.0, ICD10: Z00.00 (primary diagnosis) - Counseled on healthy diet and regular exercise - Calcium intake with supplements or by diet of 1000 mg/day for under 50, 7478-6550 mg/day for 50+ - Discussed need and benefit for weight loss. BMI 33.98 kg/(m^2) - CBC - COMP METABOLIC PANEL - HGB A1C - LIPID PANEL BASIC - VITAMIN D 25 HYDROXY - TSH BLD - T4 FREE/FREE THYROX - T3 BLD 2. Urinary frequency - ICD9: 788.41, ICD10: R35.0 acute - Send urine for culture - Patient education for prevention given - UA DIP, URINE (POC) - NITROFURANTOIN MONOHYDRATE & MACROCRYSTAL 100 MG ORAL CAP 3. Vitamin D deficiency - ICD9: 268.9, ICD10: E55.9 - CHOLECALCIFEROL (VITAMIN D3) 125 MCG (5,000 UNIT) TABLET - VITAMIN D 25 HYDROXY 4. Burning with urination - ICD9: 788.1, ICD10: R30.0 acute - Send urine for culture - Patient education for prevention given - UA DIP, URINE (POC) - NITROFURANTOIN MONOHYDRATE & MACROCRYSTAL 100 MG ORAL CAP 5. Postsurgical hypothyroidism - ICD9: 244.0, ICD10: E89.0 - CBC - COMP METABOLIC PANEL - HGB A1C - LIPID PANEL BASIC - VITAMIN D 25 HYDROXY - TSH BLD - T4 FREE/FREE THYROX - T3 BLD 6. Screening for colon cancer - ICD9: V76.51, ICD10: Z12.11 - COLONOSCOPY SCREENING 7. Special screening for malignant neoplasms, colon - ICD9: V76.51, ICD10: Z12.11 - COLONOSCOPY SCREENING 8. Screening for lipid disorders - ICD9: V77.91, ICD10: Z13.220 - LIPID PANEL BASIC 9. Screening for diabetes mellitus - ICD9: V77.1, ICD10: Z13.1 - COMP METABOLIC PANEL - HGB A1C Royce Lujan APRN.NATALIIA documented in this encounter [facility] 01-21-2022 Instructions Royce Lujan APRN.NATALIIA - 01/21/2022 6:00 PM EDT Images from the original note were not included. Schedule your colonoscopy. I recommend Dr. Agrawal or Dr. Edwards. I sent your antibiotic to [facility]. 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 Have your labs drawn-fasting. Bowel Preparation Instructions for: Miralax-Gatorade Preparations IF YOU DO NOT FOLLOW THESE DIRECTIONS, YOUR COLONOSCOPY WILL BE CANCELLED. Solitario Instructions: Your bowel must be empty so that your doctor can clearly view your colon. Follow all of the instructions in this handout EXACTLY as they are written. Do NOT eat any solid food the ENTIRE day before your colonoscopy. Buy your bowel preparation at least 5 days before your colonoscopy. Four (4) Dulcolax laxative tablets containing 5mg of bisacodyl each (NOT Dulcolax stool softener) One (1) 8.3oz. bottle Miralax (238 grams) or generic equivalent 2 x 32oz. Bottles of Gatorade (NOT RED) Diabetic Patients: Use G2 (Gatorade 2) TRANSPORTATION on the Day of Your Exam A responsible adult MUST be present with you at Check In prior to your colonoscopy and REMAIN in the endoscopy area until you are discharged. You are NOT ALLOWED to drive, take a taxi or bus, or leave the Endoscopy Center ALONE. If you do not have a responsible carrier driver (family member or friend) with you to take you home, your exam cannot be done with sedation and will be cancelled. Please bring a list of all of your current medications, including any Tgar-vau-Pieacgc medications with you. Medications If you take insulin, diabetic medications or blood thinners such as Coumadin (warfarin), Plavix (clopidogrel), Ticlid (ticlopidine hydrochloride), Agrylin (anagrelide), Xarelto (Rivaroxaban), Pradaxa (Dabigatran), Eliquis (Apixaban), and Effient (Prasugrel). You MUST call the doctors who orders those medicines for instructions on altering the dosage before your colonoscopy. All other medications should be taken the day of the exam with a sip of water including ASPIRIN. Five (5) Days Before Your Colonoscopy Do NOT take medicines that stop diarrhea - such as Imodium, Kaopectate, or Pepto Bismol. Do NOT take fiber supplements - such as Metamucil, Citrucel, or Perdiem. Do NOT take products that contain iron - such as multi-vitamins (the label lists what is in the products). Three (3) Days Before Your Colonoscopy Do NOT eat high-fiber foods - such as popcorn, beans, seeds (flax, sunflower, quinoa), multigrain bread, nuts, salad/vegetables, or fresh and dried fruit. 1 Bowel Preparation Instructions for: Miralax-Gatorade Preparations One (1) Day Before Your Colonoscopy Only drink clear liquids the ENTIRE DAY before your colonoscopy. Do NOT eat any solid foods. Drink at least 8 ounces of clear liquids every hour after waking up. The clear liquids you can drink include: Clear Liquid (NO RED LIQUIDS) DO NOT DRINK Gatorade, Pedialyte or Powerade Clear broth or bouillon Coffee or tea (no milk or non-dairy creamer) Carbonated and non-carbonated soft drinks Rupert-Aid or other fruit flavored drinks Strained fruit juices (no pulp) Jell-O, popsicles, hard candy Water Alcohol Milk or non-dairy creamers Noodles or vegetables in soup Juice with pulp Liquid you cannot see through Do not use tobacco/vaping products Mix 1/2 of Miralax bottle (119 grams) in each 32 ounces of Gatorade bottle until dissolved. Keep cool in the refrigerator. DO NOT ADD ICE. The bowel preparation solution will be consumed in two parts. Part 1 5:00 PM - Evening before your colonoscopy Take 4 Dulcolax tablets. 6 PM - Evening before your colonoscopy Drink 32 oz. of the mixed solution. Drink an 8 oz. glass of bowel preparation every 15 minutes for a total of 4 glasses. Fifteen (15) minutes later, drink an 8 oz. glass of of clear liquids every 15 minutes for a total of 2 glasses. You may continue to drink clear liquids till midnight. Part 2 On the day of your colonoscopy you may drink clear liquids up to (three) 3 hours prior to procedure. 4 1/2 hours before your colonoscopy Take another 32 oz. bottle of mixed solution. Drink an 8 oz. glass of bowel prep every 15 minutes for a total of 4 glasses. Fifteen (15) minutes later, drink an 8 oz. glass of clear liquids every 15 minutes for a total of 2 glasses. You may continue to drink clear liquids up to (three) 3 hours before your exam. 2 04/2019 documented in this encounter [facility] 01-12-2022 History of Present illness Narrative Images from the original note were not included. PSYC FOLLOW UP - PSYCHIATRIC PROGRESS NOTE DIAGNOSIS: Generalized Anxiety Disorder MDD, severe without psychotic features Chronic PTSD GAF: -60-51 Moderate symptoms or moderate difficulty in social, occupational or school functioning. TREATMENT PLAN: Continue Lamictal, Buspar, and Zoloft at the same dose. Utilize xanax for increased episodes of anxiety or panic. Contact HR to discuss intermittent FMLA paperwork. Reach out to this provider in 2 weeks to share an update regarding the increase in Lamictal and her work related stress. Schedule an appointment to start trauma focused therapy and EMDR. Follow up in 4 to 6 weeks. The effects and side effects of all the medications were reviewed in detail with the patient. She is aware of the rash side effects associated with Lamictal. Patient is in agreement with the treatment plan and aware to reach out with any questions, concerns, or worsening of symptoms prior to the next appointment. PDMP report was reviewed and found to be appropriate without any signs of misuse or diversion. CC: Follow up regarding mood and anxiety With the patient consent, visit was performed virtually. HPI: Isaura Cornelius is a 51 year old Female with a history of KENJI, MDD, and PTSD presenting today for follow-up. Date of last visit: 01/05/2022 Plan from last visit: Discontinue Wellbutrin due to lack of efficacy. Increase Lamictal to address her depressive symptoms. Discontinue Ativan due to patient experiencing sedation at the lowest dose. Utilize xanax instead of increased episodes of panic. Continue Buspar and Zoloft at the same dose. Contact HR to discuss intermittent FMLA paperwork. Continue incorporating yoga into her routine. Schedule an appointment to restart EMDR therapy. Follow up in 4 weeks. Today Isaura shares that she has struggled in the past with working in a toxic work situation. She had been happier in her new work place but they got a new manager knowledge in May. Since October, her manager knowledge has created a very difficult work environment. Last week, patient started to be the target of this manager knowledge. She felt on edge the entire week. This triggered memories of her previous work related trauma. Last Wednesday, the manager knowledge asked her to join a meeting and put her on a performance improvement plan. Patient verbalizes that she did not take it well. She feels that it was inappropriate and she did not agree with it. She asked for the weekend and felt really overwhelmed. She had an incident of driving really fast as she did not care on Wednesday. She spent her weekend in bed crying. She forced herself to go to work today. She took xanax once over the weekend to help with her anxiety. It helped her fall asleep. She has not been able to schedule an appointment with a trauma focused therapist but is going to work on that more this evening. Interval Progress: Slightly worse Risks and benefits of the medication, including any black box warnings, were discussed with the patient. Social History: See HPI PATIENT DATA: Generalized Anxiety Disorder Scale (KENJI-7) KENJI - 7 SCORES 11/07/2021 01/02/2022 01/12/2022 KENJI-7 Score 13 16 18 (0-4) minimal anxiety, (5-9) mild anxiety, (10-14) moderate anxiety, (15-21) severe anxiety Patient Health Questionnaire (PHQ-9) PHQ-9 11/07/2021 01/02/2022 01/12/2022 Score 14 14 19 (0-4) minimal depression, (5-9) mild depression, (10-14) moderate depression, (15-19) moderately severe depression, (20-27) severe depression ROS: General: Negative for fever, malaise, unintentional weight loss HEENT: Negative for recent changes in vision or hearing, no nasal drainage Respiratory: Negative for cough, wheezing or SOB Cardiovascular: Negative for chest pain GI: Negative for nausea, vomiting, change in bowel habits MUSCULOSKELETAL: Negative for acute back or joint pain SKIN: Negative for rash NEURO: Negative for headaches, seizures, focal neurological deficits All other systems negative. VITAL SIGNS: BP Temp Pulse Resp SpO2 MENTAL STATUS EXAMINATION: Appearance: Appropriately groomed, appears stated age Behavior: Appropriately engaged Psychomotor: No psychomotor agitation Cognition Level of Consciousness: Awake and alert. No fluctuation in wakefulness. Orientation: Grossly oriented Memory: Intact Attention/Concentration: Good Fund of Knowledge: Able to demonstrate an awareness of current events. Mood: Sad and Anxious Affect: Congruent to mood Speech/Language: Appropriate tone, prosody, nawaf, phonetics, and syntax Thought Form: Goal-directed. No loosening of associations. Thought Content: No delusions noted or endorsed. Perceptual Disturbances: Did not appear to respond to auditory stimuli. Safety: Suicidal Ideations: No suicidal ideation, intent or plan. Homicidal Ideations: No homicidal ideation, intent or plan. Insight: Appropriate Judgment: Appropriate I spent a total of 28 minutes on the date of the service which included preparing to see the patient, [id number] patient care, completing clinical documentation, and counseling and educating the patient/family/caregiver, ordering medications/labs. Ivory Lemus APRN.NATALIIA January 12, 2022 6:04 PM This note was partially generated using [facility] voice recognition system. Note was reviewed for accuracy. There may be minor misspellings or grammar miscues with [employer] voice recognition. documented in this encounter [facility] 01-12-2022 Miscellaneous Notes Spoke to patient and scheduled for follow up visit this evening. Patient states she had an episode of panic and was able to work herself through it but would like to follow up on that. documented in this encounter [facility] 10-23-2021 Miscellaneous Notes Pt called and is notified of providers results. Pt voices understanding, and reports that she did start the D3 supplements. Lily Moreno RN Please let her know that her vitamin D level is low, but I believe at her last appointment we already started her on vitamin D3 supplementation. Otherwise, the rest of her labs look good, no concerns. Royce Lujan APRN.NATALIIA documented in this encounter [facility] 10-22-2021 Miscellaneous Notes Patient notified via Peela message. Elif Sutton MA Noted. Does not appear to be experiencing side effects from the Zoloft. Would need to be assessed during appointment for medication adjustments. Please add the patient on a cancellation list so she is able to schedule a visit sooner if available. Patient notified of no sooner appointments available. Patient states when Zoloft was initially increased to 200 MG she felt okay. Now she doesn't think she's doing well on it. Patient is sleeping more. states he's noticed patient more edgy & uptight. Patient states she's more emotional/cries a lot & overall more sad. Elif Sutton MA Please reach out to the patient and ask her what specific issues she is experiencing with her medications. Appreciate adding the patient to the wait list. I do not have any sooner openings. Patient is requesting a sooner appointment advised this was the first opening and added to wait list. Patient then stated she is having medication issues. Please advise the patient. documented in this encounter [facility] 10-17-2021 History of Present illness Narrative Patient did not log in for her virtual visit with the provider today. She did not answer her phone prior to and during the appointment time. documented in this encounter [facility] 09-25-2021 History of Present illness Narrative Radiology Service Progress Note PATIENT NAME: Isaura Cornelius DATE OF SERVICE: September 25, 2021 TIME: 3:43 PM PATIENT IDENTITY VERIFICATION COMPLETED USING TWO (2) IDENTIFIERS: Name and Date of confirmed by patient verbally. FALL SCREENING: Has the patient had 2 falls in the last year or 1 fall with injury or currently using an Ambulatory Assistive Device (Walker, Cane, Wheelchair, Crutches, etc.)? No PATIENT GENDER DATA: Female. status: : No status: N/A PATIENT RELEVANT IMPLANT DATA REVIEWED: Not Applicable RADIOLOGY DEPARTMENT: Ultrasound PERIPHERAL IV DATA: Not applicable SIGNED BY: Itzel Sommer RDMS RVT September 25, 2021 3:43 PM documented in this encounter [facility] 09-24-2021 Instructions Royce Lujan APRN.CNP - 09/24/2021 7:18 PM EDT Schedule your ultrasound. Have your labs drawn when able. documented in this encounter [facility] 09-24-2021 History of Present illness Narrative Chief Complaint Patient presents with: Right Knee Pain: x wednesday Edema: bilateral feet HPI Isaura Cornelius is a 50 year old female who presents here today for Above Complaints. Today: Edema-started 2 days ago with bilateral feet and ankle swelling. No changes in diet. Not drinking large amounts of water. Does not improve over night. Right knee-twisted yesterday. Stepped down of a step, and twisted to grab something. Is not swollen, not black and blue, but is improving. Right side pain-just under the edge of right breast and right above the end of rib cage. Painful with pushing on area. Nothing makes it better or worse-not with eating, changing positions, etc. Is never not tolerable, but is constantly there. Is mostly a dull pain, but can be sharp at times. Past medical history, appointments, medications, allergies reviewed. 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 Endometriosis INSOMNIA NOS 12/20/2007 Migraine without aura Other and unspecified hyperlipidemia Hyperlipidemia Other pulmonary embolism and infarction PMH - PAST MEDICAL HISTORY OF 04-15-2007 Cardiolity Stress Test - [facility] Thyroid cancer (HCC) Unspecified hypothyroidism Previous Surgical History PAST SURGICAL HISTORY Procedure Laterality Date DELIVERY ONLY 11/28/1998 , low cervical DELIVERY ONLY 06/21/2001 , low cervical DILATION & CURETTAGE DX&/THER NONOBSTETRIC 05/31/1990 Dilation & curettage EGD TRANSORAL BIOPSY SINGLE/MULTIPLE 12/12/2009 HYSTEROSCOPY, DIAGNOSTIC (SEPARATE 02/06/2021 Hysteroscopy D&C for PMB at [facility]-Dr. Polo LIG/TRNSXJ FLP TUBE ABDL/VAG APPR UNI/BI 04/30/1995 PAST SURGICAL HISTORY OF right carpal tunnel release RIGHT HEART CATHETERIZATION 05/31/2007 Cardiac cath, R heart SEPTOPLASTY/SUBMUCOUS RESECJ W/WO CARTILAGE GRF Septoplasty, Dr Fields THYROIDECTOMY SUBTOTAL/PARTIAL 03/31/2007 Patient had cancer, follicular cell THYROIDECTOMY TOTAL/COMPLETE 04/30/1995 partial, left Family History FAMILY HISTORY Problem Relation Age of Onset Depression Mother other (hypothyroidism) Mother Coronary Artery Disease Father Stroke Maternal Grandmother Ischemic Heart Disease Maternal Grandfather Ischemic Heart Disease Paternal Grandfather Prostate Cancer Paternal Grandfather Depression Son Patient Allergies ALLERGIES Allergen Reactions Contrast Dye Hives Current Medications Current Outpatient Medications on File Prior to Visit Medication Sig albuterol HFA (PROVENTIL HFA, VENTOLIN HFA) 90 mcg/actuation inhaler INHALE 2 PUFFS INSTRUCTED EVERY 4 HOURS NEEDED FOR WHEEZING/SHORTNESS OF BREATH. sertraline (ZOLOFT) 100 mg tablet Take 2 tablets by mouth once daily. buPROPion XL (WELLBUTRIN XL) 300 mg 24 hr tablet Take 1 tablet by mouth once daily. busPIRone (BUSPAR) 7.5 mg tablet Take 1 tablet by mouth three times daily. SYNTHROID 175 mcg tablet 1 tablet six times a week. 175 mcg x6 daily,Takes one tablet Wednesday- Wednesday omeprazole (PRILOSEC) 20 mg capsule Take 1 capsule by mouth daily before breakfast. 1/2 hr before meal. cholecalciferol (VITAMIN D-3) 5,000 unit tab Take 5,000 Units by mouth once daily. albuterol (PROVENTIL) 2.5 mg /3 mL (0.083 %) nebulizer solution Use 3 mL via nebulizer every 4 hours as needed for Wheezing/Shortness of Breath. Use over 5-15minutes. SUMAtriptan (IMITREX) 25 mg tablet Take 1 tablet by mouth as needed for Migraine Headache (see administration instructions). As needed for migraine multivit,calc,mins/iron/folic (ONE-A-DAY WOMENS FORMULA ORAL) Take by mouth once daily. Current Facility-Administered Medications on File Prior to Visit Medication perflutren lipid microspheres 1.3 mL in NaCl (PF) 0.9% 10 mL injection (DEFINITY) sodium chloride 0.9 % (flush) 10 mL (BD POSIFLUSH) Social History Social History Tobacco Use Smoking status: Never Smoker Smokeless tobacco: Never Used Vaping Use Vaping Use: Never used Substance Use Topics Alcohol use: Yes Comment: rare 1-2 drinks per year Drug use: No Review of Symptoms REVIEW OF SYSTEMS See HPI, otherwise negative EXAM: BP 138/90 (BP Site: Left Arm, BP Position: Sitting, BP Cuff Size: Regular Adult) Pulse 97 Resp 16 Wt 88.5 kg (195 lb) LMP 06/23/2019 SpO2 100% BMI 34.54 kg/m General Appearance: Well appearing, alert, in no acute distress, well-hydrated, well nourished.. Skin: Skin color, texture, turgor normal, no suspicious rashes or lesions. Head: Normocephalic, no masses, lesions, tenderness or abnormalities. Oropharynx: Lips, mucosa, and tongue normal, teeth and gums normal, oropharynx normal. Lungs: Lungs clear to auscultation. No wheezing, rhonchi, rales.. Heart: RRR without murmur, gallop, or rubs. No ectopy. Abdomen: Normal abdominal exam, Abdomen soft, non-tender. Bowel sounds normal. No masses, organomegaly, small barely palpable mass just under right breast and above lower rib. Extremities: Pulses: 2+, Edema: 1+ pitting to bilateral feet/ankles/lower legs to knees. No calf tenderness. Ian's sign negative.. Peripheral Pulses: Normal, Capillary refill <2secs, strong peripheral pulses. Health Maintenance List COVID-19 VACCINE(1) Never done HEPATITIS C SCREENING Never done HIV SCREENING Never done DTAP,TDAP,TD(1 - Tdap) due on 07/29/2003 COLORECTAL CANCER SCREENING Never done SHINGRIX VACCINE(1 of 2) Never done MAMMOGRAM due on 01/09/2022 ANNUAL PCP TEAM CHRONIC DISEASE VISIT due on 09/12/2022 DIABETES SCREEN due on 07/15/2024 LIPID SCREEN due on 07/18/2024 PAP TESTING due on 07/25/2024 HPV TESTING due on 07/25/2024 INFLUENZA Completed MENINGOCOCCAL CONJUGATE Aged Out Data reviewed Previous notes, records. ASSESSMENT/PLAN: 1. Right upper quadrant abdominal mass - ICD9: 789.31, ICD10: R19.01 (primary diagnosis) Suspect lipoma. - US ABDOMEN LTD 2. Bilateral leg edema - ICD9: 782.3, ICD10: R60.0 R/o contributing causes. Consider low dose diuretic if sx continue. - CBC + DIFF - COMP METABOLIC PANEL - NT PRO BNP Royce Lujan APRN.CNP documented in this encounter [facility] 09-15-2021 Miscellaneous Notes Patient has been identified by name and date of : Yes Pharmacy phones for refill(s): Pending Prescriptions Disp Refills ALBUTEROL SULFATE HFA 90 MCG/ACTUATION AEROSOL INHALER 18 Each 3 Sig: INHALE 2 PUFFS INSTRUCTED EVERY 4 HOURS NEEDED FOR WHEEZING/SHORTNESS OF BREATH. JUVENTINO: Yes Date of last office visit in primary care: VV on 09/12/2021 OV on 05/22/2021 No appointment scheduled Last 2 Encounter Wt Readings: Date: Wt: 05/22/2021 86.6 kg (191 lb) 01/30/2021 86.2 kg (190 lb) Please advise. Thank you. SHERWIN Banks documented in this encounter [facility] 09-12-2021 History of Present illness Narrative Patient unable to connect via virtual platform. Called patient, was able to speak for about 10 seconds with her, then line went . Called back several times and rang, but then sent to voicemail. Patient will need to schedule another visit. Royce Lujan APRN.NATALIIA Spoke to Isaura Cornelius, confirmed patient is registered on [facility] and is prepared for their appointment. Confirmed the patient has updated medications, allergies, and questionnaires via [employer]. Informed patient if there is an issue with the connection, provider will send the patient a secure link. If provider is running late, patient should remain connected to the visit. Patient verbalized understanding. Ruth Joseph Ma documented in this encounter [facility] documented as of this encounter (statuses as of 09/12/2021) [facility] History of Past illness Narrative* Problem Noted Date Resolved Date Hypokalemia 11/30/2019 11/30/2019 Prolonged Q-T interval on ECG 11/30/2019 Suspected COVID-19 virus infection 11/30/2019 11/30/2019 Obesity 01/15/2014 01/03/2015 Enlargement of lymph nodes 10/04/201307/30 Acute gastritis without mention of hemorrhage 07/30/2014 Overweight(278.02) 10/28/2007 01/15/2014 Overview: Plans to try plant based protein diet as of 10-05 documented as of this encounter (statuses as of 09/15/2021) [facility] History of Past illness Narrative* Problem Noted Date Resolved Date Hypokalemia 11/30/2019 11/30/2019 Prolonged Q-T interval on ECG 11/30/2019 Suspected COVID-19 virus infection 11/30/2019 11/30/2019 Obesity 01/15/2014 01/03/2015 Enlargement of lymph nodes 10/04/201307/30 Acute gastritis without mention of hemorrhage 07/30/2014 Overweight(278.02) 10/28/2007 01/15/2014 Overview: Plans to try plant based protein diet as of 10-05 documented as of this encounter (statuses as of 09/26/2021) [facility] History of Past illness Narrative* Problem Noted Date Resolved Date Hypokalemia 11/30/2019 11/30/2019 Prolonged Q-T interval on ECG 11/30/2019 Suspected COVID-19 virus infection 11/30/2019 11/30/2019 Obesity 01/15/2014 01/03/2015 Enlargement of lymph nodes 10/04/201307/30 Acute gastritis without mention of hemorrhage 07/30/2014 Overweight(278.02) 10/28/2007 01/15/2014 Overview: Plans to try plant based protein diet as of 10-05 documented as of this encounter (statuses as of 09/26/2021) [facility] History of Past illness Narrative* Problem Noted Date Resolved Date Hypokalemia 11/30/2019 11/30/2019 Prolonged Q-T interval on ECG 11/30/2019 Suspected COVID-19 virus infection 11/30/2019 11/30/2019 Obesity 01/15/2014 01/03/2015 Enlargement of lymph nodes 10/04/201307/30 Acute gastritis without mention of hemorrhage 07/30/2014 Overweight(278.02) 10/28/2007 01/15/2014 Overview: Plans to try plant based protein diet as of 10-05 documented as of this encounter (statuses as of 10/17/2021) [facility] History of Past illness Narrative* Problem Noted Date Resolved Date Hypokalemia 11/30/2019 11/30/2019 Prolonged Q-T interval on ECG 11/30/2019 Suspected COVID-19 virus infection 11/30/2019 11/30/2019 Obesity 01/15/2014 01/03/2015 Enlargement of lymph nodes 10/04/201307/30 Acute gastritis without mention of hemorrhage 07/30/2014 Overweight(278.02) 10/28/2007 01/15/2014 Overview: Plans to try plant based protein diet as of 10-05 documented as of this encounter (statuses as of 10/22/2021) [facility] History of Past illness Narrative* Problem Noted Date Resolved Date Hypokalemia 11/30/2019 11/30/2019 Prolonged Q-T interval on ECG 11/30/2019 Suspected COVID-19 virus infection 11/30/2019 11/30/2019 Obesity 01/15/2014 01/03/2015 Enlargement of lymph nodes 10/04/201307/30 Acute gastritis without mention of hemorrhage 07/30/2014 Overweight(278.02) 10/28/2007 01/15/2014 Overview: Plans to try plant based protein diet as of 10-05 documented as of this encounter (statuses as of 10/23/2021) [facility] History of Past illness Narrative* Problem Noted Date Resolved Date Hypokalemia 11/30/2019 11/30/2019 Prolonged Q-T interval on ECG 11/30/2019 Suspected COVID-19 virus infection 11/30/2019 11/30/2019 Obesity 01/15/2014 01/03/2015 Enlargement of lymph nodes 10/04/201307/30 Acute gastritis without mention of hemorrhage 07/30/2014 Overweight(278.02) 10/28/2007 01/15/2014 Overview: Plans to try plant based protein diet as of 10-05 documented as of this encounter (statuses as of 10/28/2021) [facility] History of Past illness Narrative* Problem Noted Date Resolved Date Hypokalemia 11/30/2019 11/30/2019 Prolonged Q-T interval on ECG 11/30/2019 Suspected COVID-19 virus infection 11/30/2019 11/30/2019 Obesity 01/15/2014 01/03/2015 Enlargement of lymph nodes 10/04/201307/30 Acute gastritis without mention of hemorrhage 07/30/2014 Overweight(278.02) 10/28/2007 01/15/2014 Overview: Plans to try plant based protein diet as of 10-05 documented as of this encounter (statuses as of 01/12/2022) [facility] History of Past illness Narrative* Problem Noted Date Resolved Date Hypokalemia 11/30/2019 11/30/2019 Prolonged Q-T interval on ECG 11/30/2019 Suspected COVID-19 virus infection 11/30/2019 11/30/2019 Obesity 01/15/2014 01/03/2015 Enlargement of lymph nodes 10/04/201307/30 Acute gastritis without mention of hemorrhage 07/30/2014 Overweight(278.02) 10/28/2007 01/15/2014 Overview: Plans to try plant based protein diet as of 10-05 documented as of this encounter (statuses as of 01/12/2022) [facility] History of Past illness Narrative* Problem Noted Date Resolved Date Hypokalemia 11/30/2019 11/30/2019 Prolonged Q-T interval on ECG 11/30/2019 Suspected COVID-19 virus infection 11/30/2019 11/30/2019 Obesity 01/15/2014 01/03/2015 Enlargement of lymph nodes 10/04/201307/30 Acute gastritis without mention of hemorrhage 07/30/2014 Overweight(278.02) 10/28/2007 01/15/2014 Overview: Plans to try plant based protein diet as of 10-05 documented as of this encounter (statuses as of 01/23/2022) [facility] History of Past illness Narrative* Problem Noted Date Resolved Date Hypokalemia 11/30/2019 11/30/2019 Prolonged Q-T interval on ECG 11/30/2019 Suspected COVID-19 virus infection 11/30/2019 11/30/2019 Obesity 01/15/2014 01/03/2015 Enlargement of lymph nodes 10/04/201307/30 Acute gastritis without mention of hemorrhage 07/30/2014 Overweight(278.02) 10/28/2007 01/15/2014 Overview: Plans to try plant based protein diet as of 10-05 documented as of this encounter (statuses as of 01/29/2022) [facility] History of Past illness Narrative* Problem Noted Date Resolved Date Hypokalemia 11/30/2019 11/30/2019 Prolonged Q-T interval on ECG 11/30/2019 Suspected COVID-19 virus infection 11/30/2019 11/30/2019 Obesity 01/15/2014 01/03/2015 Enlargement of lymph nodes 10/04/201307/30 Acute gastritis without mention of hemorrhage 07/30/2014 Overweight(278.02) 10/28/2007 01/15/2014 Overview: Plans to try plant based protein diet as of 10-05 documented as of this encounter (statuses as of 02/05/2022) [facility] History of Past illness Narrative* Problem Noted Date Resolved Date Hypokalemia 11/30/2019 11/30/2019 Prolonged Q-T interval on ECG 11/30/2019 Suspected COVID-19 virus infection 11/30/2019 11/30/2019 Obesity 01/15/2014 01/03/2015 Enlargement of lymph nodes 10/04/201307/30 Acute gastritis without mention of hemorrhage 07/30/2014 Overweight(278.02) 10/28/2007 01/15/2014 Overview: Plans to try plant based protein diet as of 10-05 documented as of this encounter (statuses as of 02/13/2022) [facility] History of Past illness Narrative* Problem Noted Date Resolved Date Hypokalemia 11/30/2019 11/30/2019 Prolonged Q-T interval on ECG 11/30/2019 Suspected COVID-19 virus infection 11/30/2019 11/30/2019 Obesity 01/15/2014 01/03/2015 Enlargement of lymph nodes 10/04/201307/30 Acute gastritis without mention of hemorrhage 07/30/2014 Overweight(278.02) 10/28/2007 01/15/2014 Overview: Plans to try plant based protein diet as of 10-05 documented as of this encounter (statuses as of 02/13/2022) [facility] History of Past illness Narrative* Problem Noted Date Resolved Date Hypokalemia 11/30/2019 11/30/2019 Prolonged Q-T interval on ECG 11/30/2019 Suspected COVID-19 virus infection 11/30/2019 11/30/2019 Obesity 01/15/2014 01/03/2015 Enlargement of lymph nodes 10/04/201307/30 Acute gastritis without mention of hemorrhage 07/30/2014 Overweight(278.02) 10/28/2007 01/15/2014 Overview: Plans to try plant based protein diet as of 10-05 documented as of this encounter (statuses as of 03/06/2022) [facility] History of Past illness Narrative* Problem Noted Date Resolved Date Hypokalemia 11/30/2019 11/30/2019 Prolonged Q-T interval on ECG 11/30/2019 Suspected COVID-19 virus infection 11/30/2019 11/30/2019 Obesity 01/15/2014 01/03/2015 Enlargement of lymph nodes 10/04/201307/30 Acute gastritis without mention of hemorrhage 07/30/2014 Overweight(278.02) 10/28/2007 01/15/2014 Overview: Plans to try plant based protein diet as of 10-05 documented as of this encounter (statuses as of 03/06/2022) [facility] History of Past illness Narrative* Problem Noted Date Resolved Date Hypokalemia 11/30/2019 11/30/2019 Prolonged Q-T interval on ECG 11/30/2019 Suspected COVID-19 virus infection 11/30/2019 11/30/2019 Obesity 01/15/2014 01/03/2015 Enlargement of lymph nodes 10/04/201307/30 Acute gastritis without mention of hemorrhage 07/30/2014 Overweight(278.02) 10/28/2007 01/15/2014 Overview: Plans to try plant based protein diet as of 10-05 documented as of this encounter (statuses as of 03/06/2022) [facility] History of Past illness Narrative* Problem Noted Date Resolved Date Hypokalemia 11/30/2019 11/30/2019 Prolonged Q-T interval on ECG 11/30/2019 Suspected COVID-19 virus infection 11/30/2019 11/30/2019 Obesity 01/15/2014 01/03/2015 Enlargement of lymph nodes 10/04/201307/30 Acute gastritis without mention of hemorrhage 07/30/2014 Overweight(278.02) 10/28/2007 01/15/2014 Overview: Plans to try plant based protein diet as of 10-05 documented as of this encounter (statuses as of 03/16/2022) [facility] History of Past illness Narrative* Problem Noted Date Resolved Date Hypokalemia 11/30/2019 11/30/2019 Prolonged Q-T interval on ECG 11/30/2019 Suspected COVID-19 virus infection 11/30/2019 11/30/2019 Obesity 01/15/2014 01/03/2015 Enlargement of lymph nodes 10/04/201307/30 Acute gastritis without mention of hemorrhage 07/30/2014 Overweight(278.02) 10/28/2007 01/15/2014 Overview: Plans to try plant based protein diet as of 10-05 documented as of this encounter (statuses as of 03/30/2022) [facility] History of Past illness Narrative* Problem Noted Date Resolved Date Hypokalemia 11/30/2019 11/30/2019 Prolonged Q-T interval on ECG 11/30/2019 Suspected COVID-19 virus infection 11/30/2019 11/30/2019 Obesity 01/15/2014 01/03/2015 Enlargement of lymph nodes 10/04/201307/30 Acute gastritis without mention of hemorrhage 07/30/2014 Overweight(278.02) 10/28/2007 01/15/2014 Overview: Plans to try plant based protein diet as of 10-05 documented as of this encounter (statuses as of 04/01/2022) [facility] History of Past illness Narrative* Problem Noted Date Resolved Date Hypokalemia 11/30/2019 11/30/2019 Prolonged Q-T interval on ECG 11/30/2019 Suspected COVID-19 virus infection 11/30/2019 11/30/2019 Obesity 01/15/2014 01/03/2015 Enlargement of lymph nodes 10/04/201307/30 Acute gastritis without mention of hemorrhage 07/30/2014 Overweight(278.02) 10/28/2007 01/15/2014 Overview: Plans to try plant based protein diet as of 10-05 documented as of this encounter (statuses as of 04/08/2022) [facility] History of Past illness Narrative* Problem Noted Date Resolved Date Hypokalemia 11/30/2019 11/30/2019 Prolonged Q-T interval on ECG 11/30/2019 Suspected COVID-19 virus infection 11/30/2019 11/30/2019 Obesity 01/15/2014 01/03/2015 Enlargement of lymph nodes 10/04/201307/30 Acute gastritis without mention of hemorrhage 07/30/2014 Overweight(278.02) 10/28/2007 01/15/2014 Overview: Plans to try plant based protein diet as of 10-05 documented as of this encounter (statuses as of 04/09/2022) [facility] History of Past illness Narrative* Problem Noted Date Resolved Date Hypokalemia 11/30/2019 11/30/2019 Prolonged Q-T interval on ECG 11/30/2019 Suspected COVID-19 virus infection 11/30/2019 11/30/2019 Obesity 01/15/2014 01/03/2015 Enlargement of lymph nodes 10/04/201307/30 Acute gastritis without mention of hemorrhage 07/30/2014 Overweight(278.02) 10/28/2007 01/15/2014 Overview: Plans to try plant based protein diet as of 10-05 documented as of this encounter (statuses as of 04/29/2022) [facility] History of Past illness Narrative* Problem Noted Date Resolved Date Hypokalemia 11/30/2019 11/30/2019 Prolonged Q-T interval on ECG 11/30/2019 Suspected COVID-19 virus infection 11/30/2019 11/30/2019 Obesity 01/15/2014 01/03/2015 Enlargement of lymph nodes 10/04/201307/30 Acute gastritis without mention of hemorrhage 07/30/2014 Overweight(278.02) 10/28/2007 01/15/2014 Overview: Plans to try plant based protein diet as of 10-05 documented as of this encounter (statuses as of 05/18/2022) [facility] History of Past illness Narrative* Problem Noted Date Resolved Date Hypokalemia 11/30/2019 11/30/2019 Prolonged Q-T interval on ECG 11/30/2019 Suspected COVID-19 virus infection 11/30/2019 11/30/2019 Obesity 01/15/2014 01/03/2015 Enlargement of lymph nodes 10/04/201307/30 Acute gastritis without mention of hemorrhage 07/30/2014 Overweight(278.02) 10/28/2007 01/15/2014 Overview: Plans to try plant based protein diet as of 10-05 documented as of this encounter (statuses as of 06/03/2022) [facility] History of Past illness Narrative* Problem Noted Date Resolved Date Hypokalemia 11/30/2019 11/30/2019 Prolonged Q-T interval on ECG 11/30/2019 Suspected COVID-19 virus infection 11/30/2019 11/30/2019 Obesity 01/15/2014 01/03/2015 Enlargement of lymph nodes 10/04/201307/30 Acute gastritis without mention of hemorrhage 07/30/2014 Overweight(278.02) 10/28/2007 01/15/2014 Overview: Plans to try plant based protein diet as of 10-05 documented as of this encounter (statuses as of 06/05/2022) [facility] History of Past illness Narrative* Problem Noted Date Resolved Date Hypokalemia 11/30/2019 11/30/2019 Prolonged Q-T interval on ECG 11/30/2019 Suspected COVID-19 virus infection 11/30/2019 11/30/2019 Obesity 01/15/2014 01/03/2015 Enlargement of lymph nodes 10/04/201307/30 Acute gastritis without mention of hemorrhage 07/30/2014 Overweight(278.02) 10/28/2007 01/15/2014 Overview: Plans to try plant based protein diet as of 10-05 documented as of this encounter (statuses as of 06/17/2022) [facility] History of Past illness Narrative* Problem Noted Date Resolved Date Hypokalemia 11/30/2019 11/30/2019 Prolonged Q-T interval on ECG 11/30/2019 Suspected COVID-19 virus infection 11/30/2019 11/30/2019 Obesity 01/15/2014 01/03/2015 Enlargement of lymph nodes 10/04/201307/30 Acute gastritis without mention of hemorrhage 07/30/2014 Overweight(278.02) 10/28/2007 01/15/2014 Overview: Plans to try plant based protein diet as of 10-05 documented as of this encounter (statuses as of 06/26/2022) [facility] History of Past illness Narrative* Problem Noted Date Resolved Date Hypokalemia 11/30/2019 11/30/2019 Prolonged Q-T interval on ECG 11/30/2019 Suspected COVID-19 virus infection 11/30/2019 11/30/2019 Obesity 01/15/2014 01/03/2015 Enlargement of lymph nodes 10/04/201307/30 Acute gastritis without mention of hemorrhage 07/30/2014 Overweight(278.02) 10/28/2007 01/15/2014 Overview: Plans to try plant based protein diet as of 10-05 documented as of this encounter (statuses as of 06/29/2022) [facility] History of Past illness Narrative* Problem Noted Date Resolved Date Hypokalemia 11/30/2019 11/30/2019 Prolonged Q-T interval on ECG 11/30/2019 Suspected COVID-19 virus infection 11/30/2019 11/30/2019 Obesity 01/15/2014 01/03/2015 Enlargement of lymph nodes 10/04/201307/30 Acute gastritis without mention of hemorrhage 07/30/2014 Overweight(278.02) 10/28/2007 01/15/2014 Overview: Plans to try plant based protein diet as of 10-05 documented as of this encounter (statuses as of 09/29/2022) [facility] History of Past illness Narrative* Problem Noted Date Resolved Date Hypokalemia 11/30/2019 11/30/2019 Prolonged Q-T interval on ECG 11/30/2019 Suspected COVID-19 virus infection 11/30/2019 11/30/2019 Obesity 01/15/2014 01/03/2015 Enlargement of lymph nodes 10/04/201307/30 Acute gastritis without mention of hemorrhage 07/30/2014 Overweight(278.02) 10/28/2007 01/15/2014 Overview: Plans to try plant based protein diet as of 10-05 documented as of this encounter (statuses as of 10/08/2022) [facility] History of Past illness Narrative* Problem Noted Date Resolved Date Hypokalemia 11/30/2019 11/30/2019 Prolonged Q-T interval on ECG 11/30/2019 Suspected COVID-19 virus infection 11/30/2019 11/30/2019 Obesity 01/15/2014 01/03/2015 Enlargement of lymph nodes 10/04/201307/30 Acute gastritis without mention of hemorrhage 07/30/2014 Overweight(278.02) 10/28/2007 01/15/2014 Overview: Plans to try plant based protein diet as of 10-05 documented as of this encounter (statuses as of 10/25/2022) [facility] [facility] of Past illness Narrative* Problem Noted Date Resolved Date Hypokalemia 11/30/2019 11/30/2019 Prolonged Q-T interval on ECG 11/30/2019 Suspected COVID-19 virus infection 11/30/2019 11/30/2019 Obesity 01/15/2014 01/03/2015 Enlargement of lymph nodes 10/04/201307/30 Acute gastritis without mention of hemorrhage 07/30/2014 Overweight(278.02) 10/28/2007 01/15/2014 Overview: Plans to try plant based protein diet as of 10-05 documented as of this encounter (statuses as of 11/12/2022) [facility]07[facility] History of Past illness Narrative* Problem Noted Date Resolved Date Hypokalemia 11/30/2019 11/30/2019 Prolonged Q-T interval on ECG 11/30/2019 Suspected COVID-19 virus infection 11/30/2019 11/30/2019 Obesity 01/15/2014 01/03/2015 Enlargement of lymph nodes 10/04/201307/30 Acute gastritis without mention of hemorrhage 07/30/2014 Overweight(278.02) 10/28/2007 01/15/2014 Overview: Plans to try plant based protein diet as of 10-05 documented as of this encounter (statuses as of 11/12/2022) [facility] History of Past illness Narrative* Problem Noted Date Resolved Date Hypokalemia 11/30/2019 11/30/2019 Prolonged Q-T interval on ECG 11/30/2019 Suspected COVID-19 virus infection 11/30/2019 11/30/2019 Obesity 01/15/2014 01/03/2015 Enlargement of lymph nodes 10/04/201307/30 Acute gastritis without mention of hemorrhage 07/30/2014 Overweight(278.02) 10/28/2007 01/15/2014 Overview: Plans to try plant based protein diet as of 10-05 documented as of this encounter (statuses as of 11/18/2022) [facility] History of Past illness Narrative* Problem Noted Date Diagnosed Date Resolved Date Hypokalemia 11/30/2019 11/30/2019 Prolonged Q-T interval on ECG 11/30/2019 11/30/2019 Suspected COVID-19 virus infection 11/30/2019 11/30/2019 Obesity 01/15/2014 01/03/2015 Enlargement of lymph nodes 10/04/2013 0 07/30/2014 Acute gastritis without mention of hemorrhage 12/13/19 10 07/30/2014 Overweight(278.02) 10/28/2007 4 Overview: Plans to try plant based protein diet as of 10-05 documented as of this encounter (statuses as of 01/02/2023) [facility] History of Past illness Narrative* Problem Noted Date Diagnosed Date Resolved Date Hypokalemia 11/30/2019 11/30/2019 Prolonged Q-T interval on ECG 11/30/2019 11/30/2019 Suspected COVID-19 virus infection 11/30/2019 11/30/2019 Obesity 01/15/2014 01/03/2015 Enlargement of lymph nodes 10/04/2013 0 07/30/2014 Acute gastritis without mention of hemorrhage 12/13/19 10 07/30/2014 Overweight(278.02) 10/28/2007 4 Overview: Plans to try plant based protein diet as of 10-05 documented as of this encounter (statuses as of 03/06/2023) [facility] History of Past illness Narrative* Problem Noted Date Diagnosed Date Resolved Date Hypokalemia 11/30/2019 11/30/2019 Prolonged Q-T interval on ECG 11/30/2019 11/30/2019 Suspected COVID-19 virus infection 11/30/2019 11/30/2019 Obesity 01/15/2014 01/03/2015 Enlargement of lymph nodes 10/04/2013 0 07/30/2014 Acute gastritis without mention of hemorrhage 12/13/19 10 07/30/2014 Overweight(278.02) 10/28/2007 4 Overview: Plans to try plant based protein diet as of 10-05 documented as of this encounter (statuses as of 04/04/2023) [facility] History of Past illness Narrative* Problem Noted Date Diagnosed Date Resolved Date Hypokalemia 11/30/2019 11/30/2019 Prolonged Q-T interval on ECG 11/30/2019 11/30/2019 Suspected COVID-19 virus infection 11/30/2019 11/30/2019 Obesity 01/15/2014 01/03/2015 Enlargement of lymph nodes 10/04/2013 0 07/30/2014 Acute gastritis without mention of hemorrhage 12/13/19 10 07/30/2014 Overweight(278.02) 10/28/2007 4 Overview: Plans to try plant based protein diet as of 10-05 documented as of this encounter (statuses as of 04/08/2023) [facility] History of Past illness Narrative* Problem Noted Date Diagnosed Date Resolved Date Hypokalemia 11/30/2019 11/30/2019 Prolonged Q-T interval on ECG 11/30/2019 11/30/2019 Suspected COVID-19 virus infection 11/30/2019 11/30/2019 Obesity 01/15/2014 01/03/2015 Enlargement of lymph nodes 10/04/2013 0 07/30/2014 Acute gastritis without mention of hemorrhage 12/13/19 10 07/30/2014 Overweight(278.02) 10/28/2007 4 Overview: Plans to try plant based protein diet as of 10-05 documented as of this encounter (statuses as of 04/08/2023) [facility] History of Past illness Narrative* Problem Noted Date Diagnosed Date Resolved Date Hypokalemia 11/30/2019 11/30/2019 Prolonged Q-T interval on ECG 11/30/2019 11/30/2019 Suspected COVID-19 virus infection 11/30/2019 11/30/2019 Obesity 01/15/2014 01/03/2015 Enlargement of lymph nodes 10/04/2013 0 07/30/2014 Acute gastritis without mention of hemorrhage 12/13/19 10 07/30/2014 Overweight(278.02) 10/28/2007 4 Overview: Plans to try plant based protein diet as of 10-05 documented as of this encounter (statuses as of 05/05/2023) [facility] History of Past illness Narrative* Problem Noted Date Diagnosed Date Resolved Date Hypokalemia 11/30/2019 11/30/2019 Prolonged Q-T interval on ECG 11/30/2019 11/30/2019 Suspected COVID-19 virus infection 11/30/2019 11/30/2019 Obesity 01/15/2014 01/03/2015 Enlargement of lymph nodes 10/04/2013 0 07/30/2014 Acute gastritis without mention of hemorrhage 12/13/19 10 07/30/2014 Overweight(278.02) 10/28/2007 4 Overview: Plans to try plant based protein diet as of 10-05 documented as of this encounter (statuses as of 05/05/2023) [facility] note* Diagnosis RUQ pain- Primary Abdominal pain, right upper quadrant [facility] Diagnosis Cough SOB (shortness of breath) Shortness of breath [facility] Diagnosis Right upper quadrant abdominal mass Abdominal or pelvic swelling, mass, or lump, right upper quadrant [facility] Diagnosis Right upper quadrant abdominal mass- Primary Abdominal or pelvic swelling, mass, or lump, right upper quadrant Bilateral leg edema Edema [facility] Diagnosis NO SHOW- Primary [facility] Diagnosis KENJI (generalized anxiety disorder)- Primary Generalized anxiety disorder Major depressive disorder, recurrent severe without psychotic features (HCC) Major depressive disorder, recurrent episode, severe, without mention of psychotic behavior Chronic post-traumatic stress disorder (PTSD) [facility] Diagnosis Well adult exam- Primary Routine general medical examination at a health care facility Urinary frequency Vitamin D deficiency Unspecified vitamin D deficiency Burning with urination Dysuria Postsurgical hypothyroidism Screening for colon cancer Special screening for malignant neoplasms, colon Special screening for malignant neoplasms, colon Screening for lipid disorders Screening for diabetes mellitus [facility] Diagnosis Encounter for gynecological examination (general) (routine) without abnormal findings- Primary Encounter for screening mammogram for malignant neoplasm of breast Other screening mammogram Vaginal atrophy Postmenopausal atrophic vaginitis [facility] Diagnosis Change in bowel habits- Primary Other symptoms involving digestive system Fecal urgency Loose stools Abnormal feces Gastroesophageal reflux disease, unspecified whether esophagitis present [facility] Diagnosis Encounter for screening mammogram for malignant neoplasm of breast Other screening mammogram [facility] Diagnosis Chronic superficial gastritis without bleeding- Primary Atrophic gastritis without mention of hemorrhage History of IBS Personal history of other diseases of digestive system documented in this encounter [facility] note* Diagnosis KENJI (generalized anxiety disorder)- Primary Generalized anxiety disorder Major depressive disorder, recurrent episode, moderate (HCC) Major depressive disorder, recurrent episode, moderate Chronic post-traumatic stress disorder (PTSD) documented in this encounter [facility] note* Diagnosis History of pulmonary embolism- Primary Personal history of pulmonary embolism Right calf pain documented in this encounter [facility] note* Diagnosis COVID-19 virus infection SOB (shortness of breath) Shortness of breath Vitamin D deficiency Unspecified vitamin D deficiency documented in this encounter [facility] note* Diagnosis Diarrhea, unspecified type- Primary documented in this encounter [facility] note* Diagnosis Vitamin D deficiency Unspecified vitamin D deficiency documented in this encounter [facility] note* Diagnosis COVID-19 virus infection SOB (shortness of breath) Shortness of breath documented in this encounter [facility] note* Diagnosis KENJI (generalized anxiety disorder)- Primary Generalized anxiety disorder Major depressive disorder, recurrent episode, moderate (HCC) Major depressive disorder, recurrent episode, moderate Chronic post-traumatic stress disorder (PTSD) documented in this encounter [facility] note* Diagnosis Encounter for screening mammogram for malignant neoplasm of breast- Primary Other screening mammogram documented in this encounter [facility] note* Diagnosis Encounter for screening mammogram for malignant neoplasm of breast Other screening mammogram documented in this encounter [facility] note* Diagnosis COVID-19 virus infection SOB (shortness of breath) Shortness of breath documented in this encounter [facility] note* Diagnosis Cough SOB (shortness of breath) Shortness of breath documented in this encounter [facility] for referral (narrative)* Diagnostic Procedure Only (Routine) - Closed Specialty Diagnoses / Procedures Referred By Peterson nichols Referred To Contact [facility] Diagnoses Right upper quadrant abdominal mass Procedures US ABDOMEN LTD US ABDOMINAL REAL TIME W/IMAGE LIMITED Royce Lujan APRN.CNP [address] [place] [address] [facility] Referral ID Status Reason Start Date Expiration Date V isits Requested Visits Authorized [id number] Closed Auto-Generate d Referral 09/25/2021 10/25/2022 1 1 [facility] for referral (narrative)* Diagnostic Procedure Only (Routine) - Closed Specialty Diagnoses / Procedures Referred By Peterson t Referred To Contact [facility] Diagnoses Right upper quadrant abdominal mass Procedures US ABDOMEN LTD US ABDOMINAL REAL TIME W/IMAGE LIMITED Royce Lujan APRN.ELECTRICAL WIRER [address] [place] [address] Us Imaging Referral ID Status Reason Start Date Expiration Date V isits Requested Visits Authorized [id number] Closed Auto-Generate d Referral 09/25/2021 10/25/2022 1 1 [facility] for referral (narrative)* Outpatient Procedure (Routine) - Pending Review Specialty Diagnoses / Procedures Referred By Peterson nichols Referred To Contact [facility] Diagnoses Screening for colon cancer Procedures COLONOSCOPY SCREENING COLONOSCOPY FLX DX W/COLLJ SPEC WHEN PFRMD Royce Lujan APRN.ELECTRICAL WIRER [address] [place] [id number] [facility] [address] [place] [address] Referral ID Status Reason Start Date Expiration Date Visits Requested Visits Authorized [id number] Pending Review Auto-Generat ed Referral 01/21/2022 01/21/2023 1 1 [facility] for referral (narrative)* Diagnostic Procedure Only (Routine) - Pending Review Specialty Diagnoses / Procedures Referred By Contac t Referred To Contact [facility] Diagnoses Encounter for screening mammogram for malignant neoplasm of breast Procedures BETTY SCREENING W JENN SCREENING DIGITAL BREAST TOMOSYNTHESIS BI SCREENING MAMMOGRAPHY BI 2-VIEW BREAST INC CAD Jessica Acevedo MD [address] [place] [address] [facility] [address] [place] [address] Referral ID Status Reason Start Date Expiration Date Visits Requested Visits Authorized [id number] Pending Review Auto-Generat ed Referral 01/29/2022 02/28/2023 1 1 [facility] for referral (narrative)* Diagnostic Procedure Only (Routine) - Closed Specialty Diagnoses / Procedures Referred By Peterson t Referred To Contact [facility] Diagnoses Encounter for screening mammogram for malignant neoplasm of breast Procedures BETTY SCREENING W JENN SCREENING DIGITAL BREAST TOMOSYNTHESIS BI SCREENING MAMMOGRAPHY BI 2-VIEW BREAST INC CAD Jessica Acevedo MD [address] [place] [address] [facility] [address] [place] [address] Referral ID Status Reason Start Date Expiration Date V isits Requested Visits Authorized [id number] Closed Auto-Generate d Referral 01/29/2022 02/28/2023 1 1 [facility] for referral (narrative)* Outpatient Procedure (Urgent) - Authorized Specialty Diagnoses / Procedures Referred By Peterson nichols Referred To Contact [facility] Diagnoses History of pulmonary embolism Right calf pain Procedures US LEG VEIN DVT UNL VAS LAB DUP-SCAN XTR VEINS UNILATERAL/LIMITED STUDY Royce Lujan APRN.ELECTRICAL WIRER [address] [place] [address] [facility] [place] [address] [place] [address] Referral ID Status Reason Start Date Expiration Date Visits Requested Visits Authorized [id number] Authorized Auto-Generat ed Referral 03/30/2023 1 1 * Diagnostic Procedure Only (Urgent) - Pending Review Specialty Diagnoses / Procedures Referred By Peterson nichols Referred To Contact [facility] Diagnoses History of pulmonary embolism Right calf pain Procedures US DVT LOWER RT DUP-SCAN XTR VEINS UNILATERAL/LIMITED STUDY Royce Lujan APRN.CNP [address] [place] [address] Us Imaging Referral ID Status Reason Start Date Expiration Date Visits Requested Visits Authorized [id number] Pending Review Auto-Generat ed Referral 04/29/2023 1 1 [facility] for referral (narrative)* Diagnostic Procedure Only (Routine) - Pending Review Specialty Diagnoses / Procedures Referred By Peterson nichols Referred To Contact [facility] Diagnoses Encounter for screening mammogram for malignant neoplasm of breast Procedures BETTY SCREENING W JENN SCREENING DIGITAL BREAST TOMOSYNTHESIS BI SCREENING MAMMOGRAPHY BI 2-VIEW BREAST INC CAD Jessica Acevedo MD [address] [place] [address] [facility] [address] [place] [address] Referral ID Status Reason Start Date Expiration Date Visits Requested Visits Authorized [id number] Pending Review Auto-Generat ed Referral 03/05/2023 04/03/2024 1 1 * Diagnostic Procedure Only (Routine) - Pending Review Specialty Diagnoses / Procedures Referred By Peterson nichols Referred To Contact [facility] Diagnoses Encounter for screening mammogram for malignant neoplasm of breast Procedures BETTY SCREENING W JENN SCREENING DIGITAL BREAST TOMOSYNTHESIS BI SCREENING MAMMOGRAPHY BI 2-VIEW BREAST INC CAD Jessica Acevedo MD [address] [place] [address] [facility] [address] [place] [address] Referral ID Status Reason Start Date Expiration Date Visits Requested Visits Authorized [id number] Pending Review Auto-Generat ed Referral 03/05/2023 04/02/2024 1 1 [facility] for referral (narrative)* Diagnostic Procedure Only (Routine) - Closed Specialty Diagnoses / Procedures Referred By Peterson nichols Referred To Contact [facility] Diagnoses Encounter for screening mammogram for malignant neoplasm of breast Procedures BETTY SCREENING W JENN SCREENING DIGITAL BREAST TOMOSYNTHESIS BI SCREENING MAMMOGRAPHY BI 2-VIEW BREAST INC CAD Jessica Acevedo MD [address] [place] [address] [facility] [address] [place] [address] Referral ID Status Reason Start Date Expiration Date V isits Requested Visits Authorized [id number] Closed Auto-Generate d Referral 03/05/2023 04/02/2024 1 1 [facility] for visit Narrative* Diagnostic Procedure Only (Routine) - Closed Specialty Diagnoses / Procedures Referred By Peterson nichols Referred To Contact [facility] Diagnoses Encounter for screening mammogram for malignant neoplasm of breast Procedures BETTY SCREENING W JENN SCREENING DIGITAL BREAST TOMOSYNTHESIS BI SCREENING MAMMOGRAPHY BI 2-VIEW BREAST INC CAD Jessica Acevedo MD [address] [place] [address] [facility] [address] [place] [address] Referral ID Status Reason Start Date Expiration Date V isits Requested Visits Authorized [id number] Closed Auto-Generate d Referral 01/29/2022 02/28/2023 1 1 [facility] for visit Narrative* Diagnostic Procedure Only (Routine) - Closed Specialty Diagnoses / Procedures Referred By Peterson nichols Referred To Contact [facility] Diagnoses Encounter for screening mammogram for malignant neoplasm of breast Procedures BETTY SCREENING W JENN SCREENING DIGITAL BREAST TOMOSYNTHESIS BI SCREENING MAMMOGRAPHY BI 2-VIEW BREAST INC CAD Jessica Acevedo MD [address] [place] [address] [facility] [address] [place] [address] Referral ID Status Reason Start Date Expiration Date V isits Requested Visits Authorized [id number] Closed Auto-Generate d Referral 03/05/2023 04/02/2024 1 1 [facility] Summary Purpose Family History No Family History Records FoundUnknown Family Member Name Dates Details Family Members In General Comments:Heart disease Status:Active Maternal Grandmother Comments:Blood clots Status:Active Mother Comments:Blood clots Status:Active Unknown Family Member Name Dates Details Family Members In General Comments:Heart disease Status:Active Maternal Grandmother Comments:Blood clots Status:Active Mother Comments:Blood clots Status:Active Unknown Family Member Name Dates Details Family Members In General Comments:Heart disease Status:Active Maternal Grandmother Comments:Blood clots Status:Active Mother Comments:Blood clots Status:Active Unknown Family Member Name Dates Details Family Members In General Comments:Heart disease Status:Active Maternal Grandmother Comments:Blood clots Status:Active Mother Comments:Blood clots Status:Active Unknown Family Member Name Dates Details Family Members In General Comments:Heart disease Status:Active Maternal Grandmother Comments:Blood clots Status:Active Mother Comments:Blood clots Status:Active Unknown Family Member Name Dates Details Family Members In General Comments:Heart disease Status:Active Maternal Grandmother Comments:Blood clots Status:Active Mother Comments:Blood clots Status:Active Unknown Family Member Name Dates Details Family Members In General Comments:Heart disease Status:Active Maternal Grandmother Comments:Blood clots Status:Active Mother Comments:Blood clots Status:Active Unknown Family Member Name Dates Details Family Members In General Comments:Heart disease Status:Active Maternal Grandmother Comments:Blood clots Status:Active Mother Comments:Blood clots Status:Active Unknown Family Member Name Dates Details Family Members In General Comments:Heart disease Status:Active Maternal Grandmother Comments:Blood clots Status:Active Mother Comments:Blood clots Status:Active Unknown Family Member Name Dates Details Family Members In General Comments:Heart disease Status:Active Maternal Grandmother Comments:Blood clots Status:Active Mother Comments:Blood clots Status:Active Unknown Family Member Name Dates Details Family Members In General Comments:Heart disease Status:Active Maternal Grandmother Comments:Blood clots Status:Active Mother Comments:Blood clots Status:Active Unknown Family Member Name Dates Details Family Members In General Comments:Heart disease Status:Active Maternal Grandmother Comments:Blood clots Status:Active Mother Comments:Blood clots Status:Active Advance Directives No Advanced Directives Records FoundDocuments on File Type Date Recorded 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 Advance Directive(s) Advance Directive(s) 11/29/2019 8:10 PM Documents on File Type Date Recorded 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 Advance Directive(s) Advance Directive(s) 11/29/2019 8:10 PM Instructions Name Dates Details Nonsmoker : How to access he alth information online Indication:Nonsmoker Nonsmoker : How to access he alth information online - Detail Indication:Nonsmoker Nonsmoker : Patient Instruct ions Indication:Nonsmoker BMI 35.0-35.9,adult : How to access health information online Indication:BMI 35.0-35.9,adult BMI 35.0-35.9,adult : How to access health information online - Detail Indication:BMI 35.0-35.9,adult Leg pain : Patient Instructi ons Indication:Leg pain Abnormal TSH : How to access health information online Indication:Abnormal TSH Abnormal TSH : How to access health information online - Detail Indication:Abnormal TSH Abnormal TSH : Patient Instr uctions Indication:Abnormal TSH Depression : How to access h ealth information online Indication:Depression Depression : How to access h ealth information online - Detail Indication:Depression Depression : Patient Instruc tions Indication:Depression History of thyroid cancer : How to access health information online Indication:History of thyroid cancer History of thyroid cancer : How to access health information online - Detail Indication:History of thyroid cancer History of thyroid cancer : Patient Instructions Indication:History of thyroid cancer Name Dates Details Nonsmoker : How to access he alth information online Indication:Nonsmoker Nonsmoker : How to access he alth information online - Detail Indication:Nonsmoker Nonsmoker : Patient Instruct ions Indication:Nonsmoker BMI 35.0-35.9,adult : How to access health information online Indication:BMI 35.0-35.9,adult BMI 35.0-35.9,adult : How to access health information online - Detail Indication:BMI 35.0-35.9,adult Leg pain : Patient Instructi ons Indication:Leg pain Abnormal TSH : How to access health information online Indication:Abnormal TSH Abnormal TSH : How to access health information online - Detail Indication:Abnormal TSH Abnormal TSH : Patient Instr uctions Indication:Abnormal TSH Depression : How to access h ealth information online Indication:Depression Depression : How to access h ealth information online - Detail Indication:Depression Depression : Patient Instruc tions Indication:Depression History of thyroid cancer : How to access health information online Indication:History of thyroid cancer History of thyroid cancer : How to access health information online - Detail Indication:History of thyroid cancer History of thyroid cancer : Patient Instructions Indication:History of thyroid cancer Name Dates Details Nonsmoker : How to access he alth information online Indication:Nonsmoker Nonsmoker : How to access he alth information online - Detail Indication:Nonsmoker Nonsmoker : Patient Instruct ions Indication:Nonsmoker BMI 35.0-35.9,adult : How to access health information online Indication:BMI 35.0-35.9,adult BMI 35.0-35.9,adult : How to access health information online - Detail Indication:BMI 35.0-35.9,adult Leg pain : Patient Instructi ons Indication:Leg pain Abnormal TSH : How to access health information online Indication:Abnormal TSH Abnormal TSH : How to access health information online - Detail Indication:Abnormal TSH Abnormal TSH : Patient Instr uctions Indication:Abnormal TSH Depression : How to access h ealth information online Indication:Depression Depression : How to access h ealth information online - Detail Indication:Depression Depression : Patient Instruc tions Indication:Depression History of thyroid cancer : How to access health information online Indication:History of thyroid cancer History of thyroid cancer : How to access health information online - Detail Indication:History of thyroid cancer History of thyroid cancer : Patient Instructions Indication:History of thyroid cancer Name Dates Details Nonsmoker : How to access he alth information online Indication:Nonsmoker Nonsmoker : How to access he alth information online - Detail Indication:Nonsmoker Nonsmoker : Patient Instruct ions Indication:Nonsmoker BMI 35.0-35.9,adult : How to access health information online Indication:BMI 35.0-35.9,adult BMI 35.0-35.9,adult : How to access health information online - Detail Indication:BMI 35.0-35.9,adult Leg pain : Patient Instructi ons Indication:Leg pain Abnormal TSH : How to access health information online Indication:Abnormal TSH Abnormal TSH : How to access health information online - Detail Indication:Abnormal TSH Abnormal TSH : Patient Instr uctions Indication:Abnormal TSH Depression : How to access h ealth information online Indication:Depression Depression : How to access h ealth information online - Detail Indication:Depression Depression : Patient Instruc tions Indication:Depression History of thyroid cancer : How to access health information online Indication:History of thyroid cancer History of thyroid cancer : How to access health information online - Detail Indication:History of thyroid cancer History of thyroid cancer : Patient Instructions Indication:History of thyroid cancer Name Dates Details Nonsmoker : How to access he alth information online Indication:Nonsmoker Nonsmoker : How to access he alth information online - Detail Indication:Nonsmoker Nonsmoker : Patient Instruct ions Indication:Nonsmoker BMI 35.0-35.9,adult : How to access health information online Indication:BMI 35.0-35.9,adult BMI 35.0-35.9,adult : How to access health information online - Detail Indication:BMI 35.0-35.9,adult Leg pain : Patient Instructi ons Indication:Leg pain Abnormal TSH : How to access health information online Indication:Abnormal TSH Abnormal TSH : How to access health information online - Detail Indication:Abnormal TSH Abnormal TSH : Patient Instr uctions Indication:Abnormal TSH Depression : How to access h ealth information online Indication:Depression Depression : How to access h ealth information online - Detail Indication:Depression Depression : Patient Instruc tions Indication:Depression History of thyroid cancer : How to access health information online Indication:History of thyroid cancer History of thyroid cancer : How to access health information online - Detail Indication:History of thyroid cancer History of thyroid cancer : Patient Instructions Indication:History of thyroid cancer Name Dates Details Lymphadenopathy, cervical : Patient Instructions Indication:Lymphadenopathy, cervical Nonsmoker : How to access he alth information online Indication:Nonsmoker Nonsmoker : How to access he alth information online - Detail Indication:Nonsmoker Nonsmoker : Patient Instruct ions Indication:Nonsmoker BMI 35.0-35.9,adult : How to access health information online Indication:BMI 35.0-35.9,adult BMI 35.0-35.9,adult : How to access health information online - Detail Indication:BMI 35.0-35.9,adult Leg pain : Patient Instructi ons Indication:Leg pain Abnormal TSH : How to access health information online Indication:Abnormal TSH Abnormal TSH : How to access health information online - Detail Indication:Abnormal TSH Abnormal TSH : Patient Instr uctions Indication:Abnormal TSH Depression : How to access h ealth information online Indication:Depression Depression : How to access h ealth information online - Detail Indication:Depression Depression : Patient Instruc tions Indication:Depression History of thyroid cancer : How to access health information online Indication:History of thyroid cancer History of thyroid cancer : How to access health information online - Detail Indication:History of thyroid cancer History of thyroid cancer : Patient Instructions Indication:History of thyroid cancer Name Dates Details Lymphadenopathy, cervical : Patient Instructions Indication:Lymphadenopathy, cervical Nonsmoker : How to access he alth information online Indication:Nonsmoker Nonsmoker : How to access he alth information online - Detail Indication:Nonsmoker Nonsmoker : Patient Instruct ions Indication:Nonsmoker BMI 35.0-35.9,adult : How to access health information online Indication:BMI 35.0-35.9,adult BMI 35.0-35.9,adult : How to access health information online - Detail Indication:BMI 35.0-35.9,adult Leg pain : Patient Instructi ons Indication:Leg pain Abnormal TSH : How to access health information online Indication:Abnormal TSH Abnormal TSH : How to access health information online - Detail Indication:Abnormal TSH Abnormal TSH : Patient Instr uctions Indication:Abnormal TSH Depression : How to access h ealth information online Indication:Depression Depression : How to access h ealth information online - Detail Indication:Depression Depression : Patient Instruc tions Indication:Depression History of thyroid cancer : How to access health information online Indication:History of thyroid cancer History of thyroid cancer : How to access health information online - Detail Indication:History of thyroid cancer History of thyroid cancer : Patient Instructions Indication:History of thyroid cancer Name Dates Details Lymphadenopathy, cervical : Patient Instructions Indication:Lymphadenopathy, cervical Nonsmoker : How to access he alth information online Indication:Nonsmoker Nonsmoker : How to access he alth information online - Detail Indication:Nonsmoker Nonsmoker : Patient Instruct ions Indication:Nonsmoker BMI 35.0-35.9,adult : How to access health information online Indication:BMI 35.0-35.9,adult BMI 35.0-35.9,adult : How to access health information online - Detail Indication:BMI 35.0-35.9,adult Leg pain : Patient Instructi ons Indication:Leg pain Abnormal TSH : How to access health information online Indication:Abnormal TSH Abnormal TSH : How to access health information online - Detail Indication:Abnormal TSH Abnormal TSH : Patient Instr uctions Indication:Abnormal TSH Depression : How to access h ealth information online Indication:Depression Depression : How to access h ealth information online - Detail Indication:Depression Depression : Patient Instruc tions Indication:Depression History of thyroid cancer : How to access health information online Indication:History of thyroid cancer History of thyroid cancer : How to access health information online - Detail Indication:History of thyroid cancer History of thyroid cancer : Patient Instructions Indication:History of thyroid cancer Name Dates Details How to access health informa tion online - Detail Indication:Depression Start:02-Jan-2019 Instruction Type:Patient Education Patient Instructions Indication:Depression Start:02-Jan-2019 Instruction Type:Provider Instructions for Treatment Patient Instructions Indication:Lymphadenopathy, cervical Start:20-Jul-2018 Instruction Type:Provider Instructions for Treatment How to access health informa tion online Indication:Nonsmoker Start:25-Feb-2018 Instruction Type:Patient Education How to access health informa tion online - Detail Indication:Nonsmoker Start:25-Feb-2018 Instruction Type:Patient Education Patient Instructions Indication:Nonsmoker Start:25-Feb-2018 Instruction Type:Provider Instructions for Treatment How to access health informa tion online Indication:BMI 35.0-35.9,adult Start:11-Jan-2018 Instruction Type:Patient Education How to access health informa tion online - Detail Indication:BMI 35.0-35.9,adult Start:11-Jan-2018 Instruction Type:Patient Education Patient Instructions Indication:Leg pain Start:11-Jan-2018 Instruction Type:Provider Instructions for Treatment How to access health informa tion online Indication:Abnormal TSH Start:07-Jul-2017 Instruction Type:Patient Education How to access health informa tion online - Detail Indication:Abnormal TSH Start:07-Jul-2017 Instruction Type:Patient Education Patient Instructions Indication:Abnormal TSH Start:07-Jul-2017 Instruction Type:Provider Instructions for Treatment How to access health informa tion online Indication:Depression Start:16-Apr-2017 Instruction Type:Patient Education How to access health informa tion online - Detail Indication:Depression Start:16-Apr-2017 Instruction Type:Patient Education Patient Instructions Indication:Depression Start:16-Apr-2017 Instruction Type:Provider Instructions for Treatment How to access health informa tion online Indication:Depression Start:12-Apr-2017 Instruction Type:Patient Education How to access health informa tion online - Detail Indication:Depression Start:12-Apr-2017 Instruction Type:Patient Education Patient Instructions Indication:Depression Start:12-Apr-2017 Instruction Type:Provider Instructions for Treatment How to access health informa tion online Indication:History of thyroid cancer Start:05-Apr-2017 Instruction Type:Patient Education How to access health informa tion online - Detail Indication:History of thyroid cancer Start:05-Apr-2017 Instruction Type:Patient Education Patient Instructions Indication:History of thyroid cancer Start:05-Apr-2017 Instruction Type:Provider Instructions for Treatment How to access health informa tion online Indication:Depression Start:22-Mar-2017 Instruction Type:Patient Education How to access health informa tion online - Detail Indication:Depression Start:22-Mar-2017 Instruction Type:Patient Education Patient Instructions Indication:Depression Start:22-Mar-2017 Instruction Type:Provider Instructions for Treatment Name Dates Details Lymphadenopathy, cervical : Patient Instructions Indication:Lymphadenopathy, cervical Nonsmoker : How to access he alth information online Indication:Nonsmoker Nonsmoker : How to access he alth information online - Detail Indication:Nonsmoker Nonsmoker : Patient Instruct ions Indication:Nonsmoker BMI 35.0-35.9,adult : How to access health information online Indication:BMI 35.0-35.9,adult BMI 35.0-35.9,adult : How to access health information online - Detail Indication:BMI 35.0-35.9,adult Leg pain : Patient Instructi ons Indication:Leg pain Abnormal TSH : How to access health information online Indication:Abnormal TSH Abnormal TSH : How to access health information online - Detail Indication:Abnormal TSH Abnormal TSH : Patient Instr uctions Indication:Abnormal TSH Depression : How to access h ealth information online Indication:Depression Depression : How to access h ealth information online - Detail Indication:Depression Depression : Patient Instruc tions Indication:Depression History of thyroid cancer : How to access health information online Indication:History of thyroid cancer History of thyroid cancer : How to access health information online - Detail Indication:History of thyroid cancer History of thyroid cancer : Patient Instructions Indication:History of thyroid cancer Name Dates Details How to access health informa tion online - Detail Indication:Depression Start:02-Jan-2019 Instruction Type:Patient Education Patient Instructions Indication:Depression Start:02-Jan-2019 Instruction Type:Provider Instructions for Treatment Patient Instructions Indication:Lymphadenopathy, cervical Start:20-Jul-2018 Instruction Type:Provider Instructions for Treatment How to access health informa tion online Indication:Nonsmoker Start:25-Feb-2018 Instruction Type:Patient Education How to access health informa tion online - Detail Indication:Nonsmoker Start:25-Feb-2018 Instruction Type:Patient Education Patient Instructions Indication:Nonsmoker Start:25-Feb-2018 Instruction Type:Provider Instructions for Treatment How to access health informa tion online Indication:BMI 35.0-35.9,adult Start:11-Jan-2018 Instruction Type:Patient Education How to access health informa tion online - Detail Indication:BMI 35.0-35.9,adult Start:11-Jan-2018 Instruction Type:Patient Education Patient Instructions Indication:Leg pain Start:11-Jan-2018 Instruction Type:Provider Instructions for Treatment How to access health informa tion online Indication:Abnormal TSH Start:07-Jul-2017 Instruction Type:Patient Education How to access health informa tion online - Detail Indication:Abnormal TSH Start:07-Jul-2017 Instruction Type:Patient Education Patient Instructions Indication:Abnormal TSH Start:07-Jul-2017 Instruction Type:Provider Instructions for Treatment How to access health informa tion online Indication:Depression Start:16-Apr-2017 Instruction Type:Patient Education How to access health informa tion online - Detail Indication:Depression Start:16-Apr-2017 Instruction Type:Patient Education Patient Instructions Indication:Depression Start:16-Apr-2017 Instruction Type:Provider Instructions for Treatment How to access health informa tion online Indication:Depression Start:12-Apr-2017 Instruction Type:Patient Education How to access health informa tion online - Detail Indication:Depression Start:12-Apr-2017 Instruction Type:Patient Education Patient Instructions Indication:Depression Start:12-Apr-2017 Instruction Type:Provider Instructions for Treatment How to access health informa tion online Indication:History of thyroid cancer Start:05-Apr-2017 Instruction Type:Patient Education How to access health informa tion online - Detail Indication:History of thyroid cancer Start:05-Apr-2017 Instruction Type:Patient Education Patient Instructions Indication:History of thyroid cancer Start:05-Apr-2017 Instruction Type:Provider Instructions for Treatment How to access health informa tion online Indication:Depression Start:22-Mar-2017 Instruction Type:Patient Education How to access health informa tion online - Detail Indication:Depression Start:22-Mar-2017 Instruction Type:Patient Education Patient Instructions Indication:Depression Start:22-Mar-2017 Instruction Type:Provider Instructions for Treatment Hospital Course Note HNO ID: [id number] Author: Antonietta Roldan Service: Hospital Medicine Author Type: Physician Type: Discharge Summary Filed: 11/30/2019 10:46 PM Note Text: DISCHARGE SUMMARY PATIENT NAME: Isaura Cornelius Code Status: Not on file Highest Readmission Risk Score: 6 The 30 day readmissions risk score is derived from an internally validated risk model which evaluates patient level characteristics, utilization history, medication orders and lab results up until the day of discharge. Patients with a score of 40 or above are considered highest risk for readmission. Specific patient level drivers will be listed at the bottom of the summary. Admission Information Admission Information ADMIT DATE: 11/29/2019 DISCHARGE DATE: 11/30/19 MY DOCTORS AND MEDICAL TEAM: My Main Hospital Doctor: Brina Roldan Primary Care Provider: Royce Lujan APRN.CNP My Medical Team Members: Treatment Team: Attending Provider: Brina Roldan Consulting: Marilou Cortez Consulting: Sujata Knight (more content not included)... Reason for Referral Specialty Diagnoses / Procedures Referred By Contac t Referred To Contact Gastroenterology Diagnoses Diarrhea, unspecified type Procedures CONSULT TO GASTROENTEROLOGY Leonard Agrawal MD [address] [place] [address] Friend, Stanley Brewer, DO [address] [address] Referral ID Status Reason Start Date Expiration Date Visits Requested Visits Authorized [id number] Ref Not Required PCP Requested Referral 2 05/18/2023 1 1 Specialty Diagnoses / Procedures Referred By Contac t Referred To Contact Psychology Diagnoses KENJI (generalized anxiety disorder) Major depressive disorder, recurrent episode, moderate (HCC) Procedures CONSULT TO PSYCHOLOGY OFFICE/OUTPATIENT [facility] 60-74 MINUTES Mariza Gonsalves APRN.[employer]LECT[employer]ER [address] [place] [address] Referral ID Status Reason Start Date Expiration Date Visits Requested Visits Authorized [id number] Pending Review PCP Requested Referral 12/17/2022 11/17/2023 1 1 Additional Source Comments INFORMATION SOURCE (unrecogn ized section and content) DATE CREATED AUTHOR AUTHOR'S ORGANIZ ATION 11/30/2017 [facility] ([place]) DATE CREATED AUTHOR AUTHOR'S ORGANIZ ATION 12/21/2019 [facility] DATE CREATED AUTHOR AUTHOR'S ORGANIZ ATION 05/18/2023 [facility] Source Comments (unrecognize d section and content) In the event this informatio n is protected by the Federal Confidentiality of Alcohol and Drug Abuse Patient Records regulations: The Federal rules restrict any use of the information to criminally investigate or prosecute any alcohol or drug abuse patient.[facility] the event this information is protected by the Federal Confidentiality of Alcohol and Drug Abuse Patient Records regulations: The Federal rules restrict any use of the information to criminally investigate or prosecute any alcohol or drug abuse patient.[facility] the event this information is protected by the Federal Confidentiality of Alcohol and Drug Abuse Patient Records regulations: The Federal rules restrict any use of the information to criminally investigate or prosecute any alcohol or drug abuse patient.[facility] the event this information is protected by the Federal Confidentiality of Alcohol and Drug Abuse Patient Records regulations: The Federal rules restrict any use of the information to criminally investigate or prosecute any alcohol or drug abuse patient.[facility] the event this information is protected by the Federal Confidentiality of Alcohol and Drug Abuse Patient Records regulations: The Federal rules restrict any use of the information to criminally investigate or prosecute any alcohol or drug abuse patient.[facility] the event this information is protected by the Federal Confidentiality of Alcohol and Drug Abuse Patient Records regulations: The Federal rules restrict any use of the information to criminally investigate or prosecute any alcohol or drug abuse patient.[facility] the event this information is protected by the Federal Confidentiality of Alcohol and Drug Abuse Patient Records regulations: The Federal rules restrict any use of the information to criminally investigate or prosecute any alcohol or drug abuse patient.[facility] the event this information is protected by the Federal Confidentiality of Alcohol and Drug Abuse Patient Records regulations: The Federal rules restrict any use of the information to criminally investigate or prosecute any alcohol or drug abuse patient.[facility] the event this information is protected by the Federal Confidentiality of Alcohol and Drug Abuse Patient Records regulations: The Federal rules restrict any use of the information to criminally investigate or prosecute any alcohol or drug abuse patient.[facility] the event this information is protected by the Federal Confidentiality of Alcohol and Drug Abuse Patient Records regulations: The Federal rules restrict any use of the information to criminally investigate or prosecute any alcohol or drug abuse patient.[facility] HospitalIn the event this information is protected by the Federal Confidentiality of Alcohol and Drug Abuse Patient Records regulations: The Federal rules restrict any use of the information to criminally investigate or prosecute any alcohol or drug abuse patient.[facility]In the event this information is protected by the Federal Confidentiality of Alcohol and Drug Abuse Patient Records regulations: The Federal rules restrict any use of the information to criminally investigate or prosecute any alcohol or drug abuse patient.[facility] HospitalIn the event this information is protected by the Federal Confidentiality of Alcohol and Drug Abuse Patient Records regulations: The Federal rules restrict any use of the information to criminally investigate or prosecute any alcohol or drug abuse patient.[facility]In the event this information is protected by the Federal Confidentiality of Alcohol and Drug Abuse Patient Records regulations: The Federal rules restrict any use of the information to criminally investigate or prosecute any alcohol or drug abuse patient.[facility]In the event this information is protected by the Federal Confidentiality of Alcohol and Drug Abuse Patient Records regulations: The Federal rules restrict any use of the information to criminally investigate or prosecute any alcohol or drug abuse patient.[facility] HospitalIn the event this information is protected by the Federal Confidentiality of Alcohol and Drug Abuse Patient Records regulations: The Federal rules restrict any use of the information to criminally investigate or prosecute any alcohol or drug abuse patient.[facility] HospitalIn the event this information is protected by the Federal Confidentiality of Alcohol and Drug Abuse Patient Records regulations: The Federal rules restrict any use of the information to criminally investigate or prosecute any alcohol or drug abuse patient.[facility] HospitalIn the event this information is protected by the Federal Confidentiality of Alcohol and Drug Abuse Patient Records regulations: The Federal rules restrict any use of the information to criminally investigate or prosecute any alcohol or drug abuse patient.[facility] HospitalIn the event this information is protected by the Federal Confidentiality of Alcohol and Drug Abuse Patient Records regulations: The Federal rules restrict any use of the information to criminally investigate or prosecute any alcohol or drug abuse patient.[facility] HospitalIn the event this information is protected by the Federal Confidentiality of Alcohol and Drug Abuse Patient Records regulations: The Federal rules restrict any use of the information to criminally investigate or prosecute any alcohol or drug abuse patient.[facility] HospitalIn the event this information is protected by the Federal Confidentiality of Alcohol and Drug Abuse Patient Records regulations: The Federal rules restrict any use of the information to criminally investigate or prosecute any alcohol or drug abuse patient.[facility] HospitalIn the event this information is protected by the Federal Confidentiality of Alcohol and Drug Abuse Patient Records regulations: The Federal rules restrict any use of the information to criminally investigate or prosecute any alcohol or drug abuse patient.[facility] HospitalIn the event this information is protected by the Federal Confidentiality of Alcohol and Drug Abuse Patient Records regulations: The Federal rules restrict any use of the information to criminally investigate or prosecute any alcohol or drug abuse patient.[facility] HospitalIn the event this information is protected by the Federal Confidentiality of Alcohol and Drug Abuse Patient Records regulations: The Federal rules restrict any use of the information to criminally investigate or prosecute any alcohol or drug abuse patient.[facility] HospitalIn the event this information is protected by the Federal Confidentiality of Alcohol and Drug Abuse Patient Records regulations: The Federal rules restrict any use of the information to criminally investigate or prosecute any alcohol or drug abuse patient.[facility] HospitalIn the event this information is protected by the Federal Confidentiality of Alcohol and Drug Abuse Patient Records regulations: The Federal rules restrict any use of the information to criminally investigate or prosecute any alcohol or drug abuse patient.[facility] HospitalIn the event this information is protected by the Federal Confidentiality of Alcohol and Drug Abuse Patient Records regulations: The Federal rules restrict any use of the information to criminally investigate or prosecute any alcohol or drug abuse patient.[facility] HospitalIn the event this information is protected by the Federal Confidentiality of Alcohol and Drug Abuse Patient Records regulations: The Federal rules restrict any use of the information to criminally investigate or prosecute any alcohol or drug abuse patient.[facility] HospitalIn the event this information is protected by the Federal Confidentiality of Alcohol and Drug Abuse Patient Records regulations: The Federal rules restrict any use of the information to criminally investigate or prosecute any alcohol or drug abuse patient.[facility] HospitalIn the event this information is protected by the Federal Confidentiality of Alcohol and Drug Abuse Patient Records regulations: The Federal rules restrict any use of the information to criminally investigate or prosecute any alcohol or drug abuse patient.[facility] HospitalIn the event this information is protected by the Federal Confidentiality of Alcohol and Drug Abuse Patient Records regulations: The Federal rules restrict any use of the information to criminally investigate or prosecute any alcohol or drug abuse patient.[facility] HospitalIn the event this information is protected by the Federal Confidentiality of Alcohol and Drug Abuse Patient Records regulations: The Federal rules restrict any use of the information to criminally investigate or prosecute any alcohol or drug abuse patient.[facility] HospitalIn the event this information is protected by the Federal Confidentiality of Alcohol and Drug Abuse Patient Records regulations: The Federal rules restrict any use of the information to criminally investigate or prosecute any alcohol or drug abuse patient.[facility] HospitalIn the event this information is protected by the Federal Confidentiality of Alcohol and Drug Abuse Patient Records regulations: The Federal rules restrict any use of the information to criminally investigate or prosecute any alcohol or drug abuse patient.[facility] HospitalIn the event this information is protected by the Federal Confidentiality of Alcohol and Drug Abuse Patient Records regulations: The Federal rules restrict any use of the information to criminally investigate or prosecute any alcohol or drug abuse patient.[facility] HospitalIn the event this information is protected by the Federal Confidentiality of Alcohol and Drug Abuse Patient Records regulations: The Federal rules restrict any use of the information to criminally investigate or prosecute any alcohol or drug abuse patient.[facility] HospitalIn the event this information is protected by the Federal Confidentiality of Alcohol and Drug Abuse Patient Records regulations: The Federal rules restrict any use of the information to criminally investigate or prosecute any alcohol or drug abuse patient.[facility] HospitalIn the event this information is protected by the Federal Confidentiality of Alcohol and Drug Abuse Patient Records regulations: The Federal rules restrict any use of the information to criminally investigate or prosecute any alcohol or drug abuse patient.[facility] HospitalIn the event this information is protected by the Federal Confidentiality of Alcohol and Drug Abuse Patient Records regulations: The Federal rules restrict any use of the information to criminally investigate or prosecute any alcohol or drug abuse patient.[facility] HospitalIn the event this information is protected by the Federal Confidentiality of Alcohol and Drug Abuse Patient Records regulations: The Federal rules restrict any use of the information to criminally investigate or prosecute any alcohol or drug abuse patient.[facility] HospitalIn the event this information is protected by the Federal Confidentiality of Alcohol and Drug Abuse Patient Records regulations: The Federal rules restrict any use of the information to criminally investigate or prosecute any alcohol or drug abuse patient.[facility] HospitalIn the event this information is protected by the Federal Confidentiality of Alcohol and Drug Abuse Patient Records regulations: The Federal rules restrict any use of the information to criminally investigate or prosecute any alcohol or drug abuse patient.[facility] HospitalIn the event this information is protected by the Federal Confidentiality of Alcohol and Drug Abuse Patient Records regulations: The Federal rules restrict any use of the information to criminally investigate or prosecute any alcohol or drug abuse patient.[facility] Reason for Visit (unrecogniz ed section and content) Reason Comments Refill Request Reason Comments Radiology US Specialty Diagnoses / Procedures Referred By Peterson t Referred To Contact US IMAGING Diagnoses Right upper quadrant abdominal mass Procedures US ABDOMEN LTD US ABDOMINAL REAL TIME W/IMAGE LIMITED Royce Lujan, [employer] [address] [place] [address] Us Imaging Referral ID Status Reason Start Date Expiration Date V isits Requested Visits Authorized [id number] Closed Auto-Generate d Referral 09/25/2021 10/25/2022 1 1 Reason Comments Right Knee Pain x wednesday Edema bilateral feet Reason Comments No Show Reason Comments Patient Question Reason Comments Results Reason Onset Date Comments Refill Request 10/27/2021 Reason Comments Follow Up Anxiety Reason Comments Physical UTI Reason Comments Yearly Exam Reason Comments Consult Colonoscopy Reason Comments Follow Up Specialty Diagnoses / Procedures Referred By Peterson t Referred To Contact Psychiatry / ADULT PSYCHIATRY Diagnoses 4-6 WEEK FOLLOW UP Procedures VIDEO PSYC/PSYL EST Royce Lujan, [employer] [address] [place] [address] Ivory Lemus, [employer] [address] [place] [address] Referral ID Status Reason Start Date Expiration Date V isits Requested Visits Authorized [id number] Pending Review 03/03/2022 06/01/2022 1 1 Reason Comments Scheduling Reason Comments Calf Pain Reason Onset Date Comments Refill Request 04/08/2022 Reason Onset Date Comments Refill Request 04/29/2022 Reason Comments Referral Request Gastroenterology Reason Onset Date Comments Refill Request 06/16/2022 Reason Onset Date Comments Refill Request 09/27/2022 Reason Onset Date Comments Refill Request 10/07/2022 Reason Onset Date Comments Refill Request 11/10/2022 Refill Request 11/11/2022 Reason Comments Med Change Request Reason Comments Depression Anxiety Specialty Diagnoses / Procedures Referred By Contfernanda t Referred To Contact Psychiatry / ADULT PSYCHIATRY Diagnoses med check bridge appt Procedures VIDEO PSYC/PSYL EST Self [place], Mariza Kaba, [employer] [address] [place] [address] Referral ID Status Reason Start Date Expiration Date Visits Requested Visits Authorized [id number] Authorized OON/Self Pay Override 05/31/2022 05/30/2023 99 99 Reason Onset Date Comments Refill Request 05/04/2023 Care Teams (unrecognized sec tion and content) Universal [employer] Relationship Specialty Start Date End Date PremaRoyce, [employer] [address] [place] [address] PCP - General Family Practice 07/03/19 Universal Grinder Tool Relationship Specialty Start Date End Date PremaJamiRoyce, [employer] [address] [place] [address] PCP - General Family Practice 07/03/19 Universal Grinder Tool Relationship Specialty Start Date End Date PremaRoyce, [employer] [address] [place] [address] PCP - General Family Practice 07/03/19 Universal Grinder Tool Relationship Specialty Start Date End Date PremaRoyce, [employer] [address] [place] [address] PCP - General Family Practice 07/03/19 Universal Grinder Tool Relationship Specialty Start Date End Date PremaRoyce, [employer] [address] [place] [address] PCP - General Family Practice 07/03/19 Universal Grinder Tool Relationship Specialty Start Date End Date JamiRoyce, [employer] [address] [place] [address] PCP - General Family Practice 07/03/19 Universal Grinder Tool Relationship Specialty Start Date End Date PremaRoyce, [employer] [address] [place] [address] PCP - General Family Practice 07/03/19 Universal Grinder Tool Relationship Specialty Start Date End Date Royce, [employer] [address] [place] [address] PCP - General Family Practice 07/03/19 Universal Grinder Tool Relationship Specialty Start Date End Date Royce, [employer] [address] [place] [address] PCP - General Family Practice 07/03/19 Universal Grinder Tool Relationship Specialty Start Date End Date Royce, [employer] [address] [place] [address] PCP - General Family Practice 07/03/19 Universal Grinder Tool Relationship Specialty Start Date End Date Royce, [employer] [address] [place] [address] PCP - General Family Practice 07/03/19 Universal Grinder Tool Relationship Specialty Start Date End Date PremaRoyce, [employer] [address] [place] [address] PCP - General Family Practice 07/03/19 Universal Grinder Tool Relationship Specialty Start Date End Date PremaRoyce, [employer] [address] [place] [address] PCP - General Family Medicine 07/03/19 Universal Grinder Tool Relationship Specialty Start Date End Date Royce Lujan, [employer] [address] [place] [address] PCP - General Family Medicine 07/03/19 Universal Grinder Tool Relationship Specialty Start Date End Date Royce Lujan, [employer] [address] [place] [address] PCP - General Family Medicine 07/03/19 Universal Grinder Tool Relationship Specialty Start Date End Date Royce Lujan, [employer] [address] [place] [address] PCP - General Family Medicine 07/03/19 Universal Grinder Tool Relationship Specialty Start Date End Date Royce Lujan, [employer] [address] [place] [address] PCP - General Family Medicine 07/03/19 Universal Grinder Tool Relationship Specialty Start Date End Date Royce Lujan, [employer] [address] [place] [address] PCP - General Family Medicine 07/03/19 Universal Grinder Tool Relationship Specialty Start Date End Date Royce Lujan, [employer] [address] [place] [address] PCP - General Family Medicine 07/03/19 Universal Grinder Tool Relationship Specialty Start Date End Date Royce Lujan, [employer] [address] [place] [address] PCP - General Family Medicine 07/03/19 Universal Grinder Tool Relationship Specialty Start Date End Date Royce Lujan, [employer] [address] [place] [address] PCP - General Family Medicine 07/03/19 Universal Grinder Tool Relationship Specialty Start Date End Date PremaRoyce, [employer] [address] [place] [address] PCP - General Family Medicine 07/03/19 Universal Grinder Tool Relationship Specialty Start Date End Date PremaRoyce, [employer] [address] [place] [address] PCP - General Family Medicine 07/03/19 Universal Grinder Tool Relationship Specialty Start Date End Date Royce, [employer] [address] [place] [address] PCP - General Family Medicine 07/03/19 Universal Grinder Tool Relationship Specialty Start Date End Date Royce, [employer] [address] [place] [address] PCP - General Family Medicine 07/03/19 Universal Grinder Tool Relationship Specialty Start Date End Date PremaRoyce, [employer] [address] [place] [address] PCP - General Family Medicine 07/03/19 Universal Grinder Tool Relationship Specialty Start Date End Date PremaRoyce, [employer] [address] [place] [address] PCP - General Family Medicine 07/03/19 Universal Grinder Tool Relationship Specialty Start Date End Date PremaRoyce, [employer] [address] [place] [address] PCP - General Family Medicine 07/03/19 Universal Grinder Tool Relationship Specialty Start Date End Date PremaRoyce, [employer] [address] [place] [address] PCP - General Family Medicine 07/03/19 Universal Grinder Tool Relationship Specialty Start Date End Date PremaRoyce, BAT[employer] W[employer]ER [address] [facility] [place] [address] PCP - General Family Medicine 07/03/19 Universal Grinder Tool Relationship Specialty Start Date End Date PremaRoyce, [employer] [address] [facility] [place] [address] PCP - General Family Medicine 07/03/19 Universal Grinder Tool Relationship Specialty Start Date End Date PremaRoyce, [employer] [address] [facility] [place] [place] [address] PCP - General Family Medicine 07/03/19 Universal Grinder Tool Relationship Specialty Start Date End Date PremaRoyce, [employer] W[employer]ER [address] [facility] [place] [address] PCP - General Family Medicine 07/03/19 FOR RECORDS PERTAINING TO PATIENTS WHO ARE OR HAVE BEEN ENROLLED IN A CHEMICAL DEPENDENCY/SUBSTANCEABUSE PROGRAM, SOME INFORMATION MAY BE OMITTED. This clinical summary was aggregated from multiple sources. Caution should be exercised in using it in the provision of clinical care. This summary normalizes information from multiple sources, and as a consequence, information in this document may materially change the coding, format and clinical context of patient data. In addition, data may be omitted in some cases. CLINICAL DECISIONS SHOULD BE BASED ON THE PRIMARY CLINICAL RECORDS. [employer] [facility]. provides no warranty or guarantee of the accuracy or completeness of information in this document.
[2023-05-31] MEDS: 0.9% Normal Saline (1000mL) 1,000 ML 999 ML IV (03:20)
[2023-05-31 03:30] VITALS: BP 140/87; PULSE 97; RESP 14; O2SAT 99
--- NOTE | 2023-05-31 03:32 | RAD_ITS ---
INDICATION: weakness EXAMINATION/TECHNIQUE: X-RAY - XR Chest 1 View COMPARISON: 04/12/2017 chest radiograph. Findings: Single frontal view of the chest. LUNG PARENCHYMA: No acute focal airspace disease or mass lesion. PLEURA: No pleural effusion. No pneumothorax. HEART/GREAT VESSELS: Cardiomediastinal silhouette is unremarkable. BONES: Osseous structures are unremarkable for age. RAD/Chest 1 View (Portable) IMPRESSION: Chest with no acute disease. Electronically Signed: Carlitos Ramirez MD at 4:56 EST ,
[2023-05-31 03:41] LABS: Anion Gap 7 (5-15); BUN 22 mg/dL (7-18); BUN/Creat Ratio 23.2 RATIO (10-20); Calcium,Total 8.7 mg/dL (8.5-10.1); Chloride 104 mmol/L (98-107); Creatinine, Serum 0.95 mg/dL (0.55-1.02); EST Glomerular Filtration Rate 66 mL/min (>60); Est Glom Filt Rate - Afr Amer 80 mL/min (>60); Estimated Creatinine Clearance 54.79 ml/min; Glucose 105 mg/dL (74-106); Magnesium 2.4 mg/dL (1.6-2.6); Potassium 4.1 mmol/L (3.5-5.1); Sodium Level 139 mmol/L (136-145); Thyroid Stim Hormone (TSH) 3.05 uIU/mL (0.358-3.74); Troponin-I HS 6 pg/mL (3.0-54.0)
[2023-05-31 04:30] VITALS: BP 134/84; PULSE 90; RESP 16; O2SAT 96
[2023-05-31 05:08] VITALS: BP 135/83; PULSE 95; RESP 16; O2SAT 96
--- NOTE | 2023-05-31 05:31 | EDS_ITS ---
HPI History of Present Illness Chief Complaint: Weakness Informant: patient and spouse/S.O. Narrative Narrative: Patient is a 52-year-old female with past medical history of depression and hypothyroidism IBS and migraine headache. She states that today she developed just generalized body weakness and as well as discomfort within her head. She states she also felt slight numbness and tingling to her lip region when this occurred. She states that there was no recent trauma and she denies any bouts of vomiting or diarrhea neck related to electrolyte derangement. States she has been taking all of her medication as directed. However she states that because of the weakness she was having difficulty standing and therefore was brought to the hospital for evaluation [facility] Medical History (Updated 05/31/23 @ 22:[address] James Giles, DO) Acute gastritis without mention of hemorrhage Acute insomnia Anxiety Asthma Cancer Diarrhea Endometriosis Fecal urgency Gastric reflux GERD (gastroesophageal reflux disease) H/O radioactive iodine thyroid ablation History of echocardiogram History of irregular heartbeat HLD (hyperlipidemia) Hx of pulmonary embolus Migraine headache Non-smoker Post-menopausal Pulmonary embolism Thyroid disease Wears contact lenses Home Medications levothyroxine 125 mcg tablet 125 mcg PO DAILY #30 TABLETS 12/21/14 [Rx Last Taken 02/06/21] albuterol 90 mcg/actuation aerosol inhaler 90 mcg inhalation DAILY PRN Wheezing 01/31/21 [History Last Taken Unknown] alprazolam 0.25 mg tablet 0.25 mg PO DAILY 06/08/22 [History Last Taken Unknown] cholecalciferol (vitamin D3) 125 mcg (5,000 unit) capsule 125 mcg PO DAILY 06/08/22 [History Last Taken Unknown] hydrochlorothiazide 12.5 mg capsule 12.5 mg PO DAILY 06/08/22 [History Last Taken Unknown] lamotrigine 100 mg tablet (Lamictal) 100 mg PO DAILY 06/08/22 [History Last Taken Unknown] omeprazole 20 mg capsule,delayed release 20 mg PO DAILY 06/08/22 [History Last Taken Unknown] sertraline 100 mg tablet 100 mg PO DAILY 06/08/22 [History Last Taken Unknown] sumatriptan succinate 25 mg tablet See Rx Instructions PO .COMPLEX 06/08/22 [History Last Taken Unknown] bupropion HCl 300 mg 24 hr tablet, extended release 300 mg PO 03/31/23 [History Last Taken Unknown] magnesium 200 mg tablet 200 mg PO DAILY 03/31/23 [History Last Taken Unknown] potassium chloride 10 mEq tablet,extended release meq PO 03/31/23 [History Last Taken Unknown] venlafaxine 75 mg capsule,extended release 24 hr 75 mg PO DAILY 03/31/23 [History Last Taken Unknown] Allergy/AdvReac Type Severity Reaction Status Date / Time Iodinated Contrast Media Allergy Hives Verified 05/31/23 02:37 [Iodinated Contrast Media - IV Dye] Family History Mother Depression Thyroid disorder Father CAD (coronary artery disease) Surgical History H/O dilation and curettage History of History of nasal septoplasty History of thyroidectomy History of tubal ligation Social History Smoking Status: Never smoker alcohol intake: current alcohol intake frequency: holidays/special occasions only ROS ROS ED Constitutional Constitutional ED: Denies chills or fever(s) Eyes Eyes: Denies change in vision ENT ENT ED: Denies rhinorrhea or sore throat Cardiovascular Cardiovascular: Denies chest pain or palpitations Respiratory/Chest Respiratory/Chest: Reports cough; Denies dyspnea Gastrointestinal Gastrointestinal: Reports nausea; Denies abdominal pain, diarrhea or vomiting Genitourinary Genitourinary ED: Denies dysuria Musculoskeletal Musculoskeletal: Denies myalgias Integumentary Denies rash Neurologic Neurologic: Reports headache(s) and weakness Hematologic/Lymphatic Hematologic/Lymphatic: Denies easy bleeding or easy bruising EXAM Physical Exam Const Vital Signs: 05/31/23 02:34 05/31/23 03:14 05/31/23 05:08 Temperature 97.1 F L Temperature Source Temporal Pulse Rate 109 H 95 Respiratory Rate 16 16 Respiratory Effort Normal Respiratory Pattern Normal Blood Pressure 158/100 H 135/83 H Blood Pressure Mean 119 100 Pulse Ox 99 96 Oxygen Delivery Method Room Air Room Air 05/31/23 05:35 05/31/23 03:30 05/31/23 04:30 Temperature Temperature Source Pulse Rate 93 97 90 Respiratory Rate 15 14 16 Respiratory Effort Respiratory Pattern Blood Pressure 136/88 H 140/87 H 134/84 H Blood Pressure Mean 104 104 100 Pulse Ox 96 99 96 Oxygen Delivery Method Room Air Room Air Positive well nourished and well developed General Appearance ED: well developed; Negative for pallor HEENT HEENT Narrative: Mild cobblestoning noted in the posterior pharynx consistent with sinus drainage but no airway edema or compromise or secondary changes to suggest infection Eyes PERRL and EOMs intact bilaterally Neck supple Neck Narrative: No nuchal rigidity or meningeal signs present Resp normal respiratory effort and clear to auscultation bilaterally Cardio regular rate and regular rhythm Rate: other Other Details: Heart is regular rate and rhythm without murmurs rubs or gallops Radial and carotid pulses equal and symmetric GI normal to inspection, nondistended, normoactive bowel sounds, non-tender, non- distended and no masses GI Narrative: No voluntary guarding or rigidity No pulsatile mass or fluid wave Auscultation: normoactive bowel sounds Palpation: soft Extremity normal to inspection Extremity Narrative: No asymmetric edema no pitting edema negative Homans' sign bilaterally Neuro oriented x3, CN's II-XII intact bilaterally and no sensory deficits noted Neuro Narrative: Cranial nerves II through XII are grossly intact there are no focal neurologic deficits No pronator drift no dysmetria no truncal ataxia NIH stroke scale score of 0 Sensorium / Orientation: alert Motor Exam: strength 5/5 throughout Psych mental status grossly normal Skin no rashes or lesions noted and skin turgor normal General Skin Exam: Negative for jaundice or pallor MDM MDM MDM Narrative Medical decision making narrative: Patient presented to the ER mildly hypertensive but otherwise with stable vitals and in no acute distress. She had generalized weakness but not focal weakness there is no persistent paresthesias and she has a stroke scale score of 0 and therefore there is no need to activate a stroke alert. However with the headache and symptoms there is concern for potential bleed or mass as a cause of her symptoms and patient could also have potential infection such as COVID or influenza or hypothyroidism or electrolyte abnormality or acute kidney injury site elected perform a cardiac workup. Patient's EKG is sinus rhythm without ectopy troponin is normal at 6 going against acute coronary syndrome. Lab work shows normal white count without left shift going against infection and her electrolytes and kidney function are normal going against electrolyte derangement or SHELDON as a cause of her symptoms. TSH is also within normal range going against hyper or hypothyroidism as a cause of her weakness. CT revealed no acute brain pathology. On reevaluation patient reports improvement of symptoms vitals are stable neurologic exam remains normal. He is able to stand under her own power and ambulate indicating that her generalized weakness has resolved. Therefore this time with resolution of symptoms and a negative workup I do not feel there is need for further evaluation and she is otherwise safe for discharge History & Record Review Discussion w/independent historian: Patient and Significant other Lab Data Attestation: I reviewed the patient's lab results. Labs: Laboratory Results - last 24 hr 05/31/23 02:40 WBC 6.1 RBC 4.91 Hgb 13.3 Hct 41.1 MCV 83.7 MCH 27.1 MCHC 32.4 RDW Std Deviation 41.7 RDW Coeff of Salma 13.7 Plt Count 249 MPV 10.0 Immature Gran % (Auto) 0.700 Neut % (Auto) 52.5 Lymph % (Auto) 32.1 Forrest % (Auto) 9.4 Eos % (Auto) 4.6 Baso % (Auto) 0.7 Absolute Neuts (auto) 3.2 Absolute Lymphs (auto) 1.95 Nucleated RBC % 0 Sodium 139 Potassium 4.1 Chloride 104 Carbon Dioxide 28.0 Anion Gap 7 BUN 22 H Creatinine 0.95 Estim Creat Clear Calc 54.79 Est GFR (MDRD) Af Amer 80 Est GFR (MDRD) Non-Af 66 BUN/Creatinine Ratio 23.2 H Glucose 105 Calcium 8.7 Magnesium 2.4 Troponin I High Sens 6 TSH 3.05 Radiography Diagnostic Testing: Clinical Impression(s) from Imaging Studies Brain CT 05/31/23 03:08 IMPRESSION: No acute intracranial hemorrhage in this noncontrast head CT. Electronically Signed: Carlitos Ramirez MD at 4:54 EST , Chest X-Ray 05/31/23 03:32 IMPRESSION: Chest with no acute disease. Electronically Signed: Carlitos Ramirez MD at 4:56 EST , Chest x-ray as interpreted by the emergency medicine physician reveals no acute infiltrate pneumothorax or pleural effusion Discharge Plan Triage Chief Complaint: Weakness ED Provider: James Giles Dx/Rx/DC Orders Clinical Impression: Generalized weakness, Depression, Hypothyroidism Instructions: ED Weakness (Uncertain Cause) Prescriptions: No Action cholecalciferol (vitamin D3) 125 mcg (5,000 unit) capsule 125 mcg PO DAILY alprazolam 0.25 mg tablet 0.25 mg PO DAILY sertraline 100 mg tablet 100 mg PO DAILY lamotrigine [Lamictal] 100 mg tablet 100 mg PO DAILY hydrochlorothiazide 12.5 mg capsule 12.5 mg PO DAILY sumatriptan succinate 25 mg tablet See Rx Instructions PO .COMPLEX Rx Instructions: take 1 tab at onset of headache; if no relief may repeat 1 tab after at least 2 hrs; max = 4 tabs/24 hr PO omeprazole 20 mg capsule,delayed release(DR/EC) 20 mg PO DAILY bupropion HCl 300 mg tablet extended release 24 hr 300 mg PO venlafaxine 75 mg capsule,extended release 24hr 75 mg PO DAILY potassium chloride 10 mEq tablet extended release PO Patient Comments: 1 BY MOUTH EVERY DAY FOR THREE DAYS magnesium 200 mg tablet 200 mg PO DAILY levothyroxine 125 MCG tablet 125 mcg PO DAILY Qty: 30 0RF albuterol 90 mcg/actuation Aerosol 90 mcg INHALATION DAILY PRN (Reason: Wheezing) Primary Care Provider: Pricila Lujan NP Referrals: Pricila Lujan NP, [facility] [Primary Care Provider] - Activity Restrictions/Additional Instructions: Please continue all of your home medications as directed by your doctor and return to the ER should you have any further concerns Disposition Disposition: Home, Self Care Discharge Date/Time: 05/31/23 05:43
[2023-05-31 05:35] VITALS: BP 136/88; PULSE 93; RESP 15; O2SAT 96
== END 2023-05-31 05:43 | disposition home or self-care (01) ==
PROVIDERS: Emergency Provider Emergency Medicine; PCP Nurse Practitioner Family; Visit Provider Emergency Medicine
DX: R53.1 Weakness (principal); F32.A Depression, unspecified; E78.5 Hyperlipidemia, unspecified; E03.9 Hypothyroidism, unspecified; F41.9 Anxiety disorder, unspecified; K21.9 Gastro-esophageal reflux disease without esophagitis; Z85.9 Personal history of malignant neoplasm, unspecified
CPT/HCPCS: 70450; 71045; 80048; 83735; 84443; 84484; 85025; 87428; 93005; 96360; 99282; J7030

== ENCOUNTER → 2023-06-17 | Outpatient (CLI) | payer OTHER, SELFPAY ==
--- NOTE | 2023-06-17 17:58 | MRI_ITS ---
STUDY: MRI BRAIN WITH AND WITHOUT CONTRAST REASON FOR EXAM: Female, 52 years old. HEADACHE,SPEECH DIFFICULTY, SYNCOPE,MENTAL STATUS CHANGE, DYSPHAS TECHNIQUE: Standardized multiplanar fat and water weighted pulse sequences were obtained. 18CC CLARISCAN was administered for the contrast portion of the examination. COMPARISON: CT of the brain May 31, 2019 FINDINGS: Normal size of the ventricles and extra-axial spaces for the patient''s age. Normal white matter tracts of the supratentorial brain. Normal bilateral basal ganglia. Normal thalami. There is no extra-axial fluid accumulation. Normal flow voids within the major intracranial circulation suggesting patency by spin echo criteria. Normal venous enhancement. There is no enhancing intra-axial or extra-axial abnormality. Normal sella turcica, pituitary gland, infundibular stalk, optic chiasm and hypothalamus. Normal tectal plate and pineal gland. Normal midbrain, richa and medulla. Normal cerebellum. Normal basal cisterns. Normal bilateral temporal bones. Normal bilateral internal auditory canals. No demonstrated orbital abnormality, within the constraints of a routine brain study. Normal visualized paranasal sinuses. Normal calvarium and skull base. Normal visualized soft tissue structures. Normal visualized upper cervical spine. MRI/Brain W/WO Contrast IMPRESSION: Normal unenhanced and enhanced MRI of the brain. Electronically Signed: Rommel Murphy MD at 20:30 EST ,
--- OUTSIDE RECORDS SUMMARY | 2023-06-17 18:00 | XMS RPT_ITS | CCD ---
Author Name Unknown Address [address] [place] [address] Organization [facility] Care Team Providers Care Medical Underwriter Name Role Phone Federico Tillman Unavailable Unavailable [...] Kami, Candace Unavailable Unavailable [facility] Unavailable [facility] Unavailable [facility] CARTRIDGE LOADING OPERATOR.NATALIIA, Royce Primary Care Provider [facility] CARTRIDGE LOADING OPERATOR.Sami WILLIAMah Primary Care Provider [facility] CARTRIDGE LOADING OPERATOR.Sami WILLIAMah Primary Care Provider [facility] CARTRIDGE LOADING OPERATOR.Sami WILLIAMah Primary Care Provider PREMASAMIAH Primary Care Unavailable [facility] Primary Care Unavailable [facility] Primary Care Unavailable MARIZA GONSALVES Attending Unavailable IVORY LEMUS Attending Unavailable PREMAJAMIROYCE Primary Care [facility] Referring Unavailable [facility] Primary Care Unavailable [facility] Attending Unavailable [facility] Primary Care Unavailable [facility] Primary Care Unavailable JESSICA ACEVEDO Referring Unavail able Allergies Allergy Classification Reported Allergen(s) Allergy Type Date of Onset Reaction(s) Facility (17 sources) Erythromycins; Translations: [Erythromycins] allergy to substance [facility] Work Phone: (17 sources) Iodine *CHEMICALS*; Translations: [Iodine *CHEMICALS*] drug allergy [facility] Work Phone: (20 sources) Contrast media; Translations: [CONTRAST DYE] Drug Allergy 4 [facility] Work Phone: Medications Current Medications Medication Drug Class(es) Dates Sig (Normalized) Sig (Original) azithromycin 250 mg oral tablet (1 source) Macrolide Antimicrobial Start: 01-01-2023 End: 01-06-2023 azithromycin (ZITHROMAX Z-KENDRICK) 250 mg tablet Take 2 tablets day one, then, 1 tablet daily until gone. 6 tablet 0 01/01/2023 01/06/2023 Active Completed/Discontinued Medications Medication Drug Class(es) Dates Sig (Normalized) Sig (Original) [id number] 200 actuat albuterol 0.09 mg/actuat metered dose [...] 02-03-2022 09:33-0400 Body height 160 cm Lily Lapeer PA-C Work Phone: [facility] 02-03-2022 09:33-0400 Body temperature 97.81 [degF] Lily Lapeer PA-C Work Phone: [facility] 02-03-2022 09:33-0400 Body weight 85.28 kg Lily Yane PA-C Work Phone: [facility] 02-03-2022 09:33-0400 Diastolic blood pressure 78 mm[Hg] Lily Lapeer PA-C Work Phone: [facility] 02-03-2022 09:33-0400 Heart rate 107 /min Lily Yane PA-C Work Phone: [facility] 02-03-2022 09:33-0400 SaO2% (BldA) [Mass fraction] 99 % Lily Yane PA-C Work Phone: [facility] 02-03-2022 09:33-0400 Systolic blood pressure 117 mm[Hg] Lily Lapeer PA-C Work Phone: [facility] 01-29-2022 15:58-0400 Body height 160 cm Jessica Neyhart Polo MD Work Phone: [facility] 01-29-2022 15:58-0400 Body weight 85.73 kg Jessica Polo MD Work Phone: [facility] 01-29-2022 15:58-0400 Diastolic blood pressure 78 mm[Hg] Jessica Polo MD Work Phone: [facility] 01-29-2022 15:58-0400 Systolic blood pressure 120 mm[Hg] Jessica Polo MD Work Phone: [facility] 01-21-2022 17:31-0400 Body height 159.5 cm Royce Prema CARTRIDGE LOADING OPERATOR.ETYMOLOGY PROFESSOR Work Phone: [facility] 01-21-2022 17:31-0400 Body weight 86.46 kg Royce Prema CARTRIDGE LOADING OPERATOR.ETYMOLOGY PROFESSOR Work Phone: [facility] 01-21-2022 17:31-0400 Diastolic blood pressure 84 mm[Hg] Royce Prema CARTRIDGE LOADING OPERATOR.ETYMOLOGY PROFESSOR Work Phone: [facility] 01-21-2022 17:31-0400 Heart rate 91 /min Royce Prema CARTRIDGE LOADING OPERATOR.ETYMOLOGY PROFESSOR Work Phone: [facility] 01-21-2022 17:31-0400 Respiratory rate 16 /min Royce Prema CARTRIDGE LOADING OPERATOR.ETYMOLOGY PROFESSOR Work Phone: [facility] 01-21-2022 17:31-0400 SaO2% (BldA) [Mass fraction] 97 % Royce Prema CARTRIDGE LOADING OPERATOR.ETYMOLOGY PROFESSOR Work Phone: [facility] 01-21-2022 17:31-0400 Systolic blood pressure 116 mm[Hg] Royce Prema CARTRIDGE LOADING OPERATOR.ETYMOLOGY PROFESSOR Work Phone: [facility] 09-24-2021 18:46-0400 Body weight 88.45 kg Royce Prema CARTRIDGE LOADING OPERATOR.ETYMOLOGY PROFESSOR Work Phone: [facility] 09-24-2021 18:46-0400 Diastolic blood pressure 90 mm[Hg] Royce Prema CARTRIDGE LOADING OPERATOR.ETYMOLOGY PROFESSOR Work Phone: [facility] 09-24-2021 18:46-0400 Heart rate 97 /min Royce Prema CARTRIDGE LOADING OPERATOR.ETYMOLOGY PROFESSOR Work Phone: [facility] 09-24-2021 18:46-0400 Respiratory rate 16 /min Royce Prema CARTRIDGE LOADING OPERATOR.ETYMOLOGY PROFESSOR Work Phone: [facility] 09-24-2021 18:46-0400 SaO2% (BldA) [Mass fraction] 100 % Royce Prema CARTRIDGE LOADING OPERATOR.ETYMOLOGY PROFESSOR Work Phone: [facility] 09-24-2021 18:46-0400 Systolic blood pressure 138 mm[Hg] Royce Prema CARTRIDGE LOADING OPERATOR.ETYMOLOGY PROFESSOR Work Phone: [facility] 01-02-2019 16:47-0400 BMI (Body Mass Index) 35.16 kg/m2 [facility] Work Phone: 01-02-2019 16:47-0400 Body Temperature 97.4 [degF] [facility] Work Phone: 01-02-2019 16:47-0400 Body weight 87.2 kg [facility] Work Phone: 01-02-2019 16:47-0400 BP Diastolic 80 mm[Hg] [facility] Work Phone: Encounters Encounter Date Encounter Type Care Provider Facility Start: 05-17-2023 End: 05-17-2023 ambulatory IVORY LEMUS Facility:[facility] Start: 05-04-2023 Refill Letty Montez CARTRIDGE LOADING OPERATOR.ETYMOLOGY PROFESSOR Work Phone: [facility] [place] Procedures Date Procedure Procedure Detail Performing Clinician [...] stick/tablet rgnt auto w/o microscopy Royce Lujan CARTRIDGE LOADING OPERATOR.ETYMOLOGY PROFESSOR Work Phone: Start: 09-25-2021 Us abdominal real time w/image limited Royce Lujan CARTRIDGE LOADING OPERATOR.ETYMOLOGY PROFESSOR Work Phone: Start: 01-09-2021 Mammography Royce Prema CARTRIDGE LOADING OPERATOR.ETYMOLOGY PROFESSOR Work Phone: Start: 07-28-2018 End: 07-28-2018 Esophagus Only Comments: See Note; NOTES: [facility] Imaging Services [address] [place] [address] Esophagus Only MR#: [id number] Acct: [id number] Name: ISAURA CORNELIUS Rep #: [id number] : 1970 F 47 From: Jh Lyons MD PCP: Mariza Haynes NP Status: REG CLI Study: Esophagus Only Date of Exam: 07/28/18 Exam# [id number] Ordering Dr: Julieta Brandt DO STUDY: X-RAY [...] CC: Mariza Haynes NP; Julieta Brandt DO Band And Cuff Cutter: Signed Julieta Brandt Work Phone: Start: 07-28-2018 End: 07-28-2018 Soft Tissue Neck WITH Contrast Comments: See Note; NOTES: [facility] Imaging Services [address] [place] [address] Soft Tissue Neck WITH Contrast MR#: [id number] Acct: [id number] Name: ISAURA CORNELIUS Rep #: [id number] : 1970 F 47 From: Wili Mae DO PCP: Mariza Haynes NP Status: REG CLI Study: Soft Tissue Neck WITH Contrast Date of Exam: 07/28/18 Exam# [id number] Ordering Dr: Julieta Brandt DO STUDY: CT [...] FINDINGS: Normal bilateral parotid glands. Normal bilateral healthcare management consultant spaces. Normal bilateral parapharyngeal spaces. Normal bilateral [...] Wili Mae DO at 19:16 EST Tel [phone], Service support , CC: Mariza Haynes CLINICAL PRODUCT SPECIALIST; Julieta Brandt DO Band And Cuff Cutter: Signed Julieta Brandt Work Phone: Start: 04-23-2018 End: 04-23-2018 Soft Tissue Neck without Contr Comments: See Note; NOTES: [facility] Imaging Services [address] [place] [address] Soft Tissue Neck without Contr MR#: [id number] Acct: [id number] Name: ISAURA CORNELIUS Rep #: [id number] : 1970 F 47 From: Daniel Mcgee MD PCP: Mariza Haynes NP Status: REG CLI Study: Soft Tissue Neck without Contr Date of Exam: 04/23/18 Exam# [id number] Ordering Dr: Federico Tillman STUDY: CT SOFT [...] FINDINGS: Normal bilateral parotid glands. Normal bilateral healthcare management consultant spaces. Normal bilateral parapharyngeal spaces. There are [...] , CC: Mariza Haynes NP; FEDERICO TILLMAN Band And Cuff Cutter: Signed Mariza Irajuan pablowilli Start: 02-14-2018 End: 02-15-2018 SCREENING MAMM (CAD), BILAT Comments: See Note; NOTES: [facility] Imaging Services [address] [place] [address] SCREENING MAMM (CAD), BILAT MR#: [id number] Acct: [id number] Name: ISAURA CORNELIUS Rep #: [id number] : 1970 F 47 From: Jh Lyons MD PCP: Mariza Haynes NP Status: REG CLI Study: SCREENING MAMM (CAD), BILAT Date of Exam: 02/14/18 Exam# [id number] Ordering Dr: Fatimah Solorio MD MAMMOGRAPHY - [...] delay biopsy of a clinically suspicious abnormality. [id number] Electronically Signed: Jh Lyons MD at 8:52 EDT Tel [phone], Service support , CC: Mariza Haynes NP; Fatimah Solorio MD Band And Cuff Cutter: Signed Mariza Haynes Start: 01-17-2018 End: 02-23-2018 Orbit Face and Neck (Routine) Comments: See Note; NOTES: [facility] Imaging Services [address] [place] [address] Orbit Face and Neck (Routine) MR#: [id number] Acct: [id number] Name: ISAURA CORNELIUS Rep #: [id number] : 1970 F 47 From: Elvie Becker MD PCP: Mariza Haynes NP Status: REG CLI Study: Orbit Face and Neck (Routine) Date of Exam: 01/17/18 Exam# [id number] Ordering Dr: Ricky Dodge MD ADDENDUM by [...] The lung apices are visualized on the computer networking instructor adjunct images and are unremarkable. The computer networking instructor adjunct images are part of the study and [...] mass noted on clinical examination. Normal bilateral healthcare management consultant spaces. Normal bilateral parapharyngeal spaces. Normal bilateral [...] , Service support , CC: Mariza Haynes CLINICAL PRODUCT SPECIALIST; Epifanio Dodge MD Band And Cuff Cutter: Signed Mariza Haynes Start: 01-12-2018 End: 01-12-2018 Venous Duplex Lower Extremity Comments: See Note; NOTES: [facility] Cardiovascular Services [address] [place] [address] Venous Duplex US, Unilateral 01/12/18 1534 MR#: [id number] Acct: [id number] Name: ISAURA CORNELIUS Rep #: [id number] : 1970 47 From: Weston Hernandez MD [...] Weston Hernandez MD CC: Mariza Haynes NP; CLINICAL PRODUCT SPECIALIST-C Hyacinth Moses Date Dictated: 01/12/18 1534 Date Transcribed: 01/12/18 1855 Band And Cuff Cutter: Signed Mariza Blancawilli Start: 01-11-2018 End: 01-11-2018 CTA Chest W/WO Contrast Comments: See Note; NOTES: [facility] Imaging Services [address] [place] [address] CTA Chest W/WO Contrast MR#: [id number] Acct: [id number] Name: ISAURA CORNELIUS Rep #: [id number] : 1970 F 47 From: Tara Oconnell MD PCP: Mariza Haynes NP Status: REG CLI Study: CTA Chest W/WO Contrast Date of Exam: 01/11/18 Exam# [id number] Ordering Dr: Hyacinth Moses STUDY: CTA CHEST [...] , Service support , CC: Mariza Haynes CLINICAL PRODUCT SPECIALIST; CLINICAL PRODUCT SPECIALIST-C Hyacinth Moses Band And Cuff Cutter: Signed Hyacinth Moses Work Phone: Start: 04-14-2017 End: 04-14-2017 Echocardiogram Complete Comments: See Note; NOTES: [facility] Services [address] [place] [address] Echo Complete 04/14/17 1010 MR#: [id number] Acct: [id number] Name: ISAURA CORNELIUS Rep #: [id number] : 1970 46 From: Leonard Alvarez MD Attending Dr: Mariza Haynes Status: REG CLI Ordering Dr: Mariza Haynes Date: 04/14/17 Location: [facility] Sex: F C Admitted: Reason For Study: [...] max evelyn: 60.4 cm/sec Lat Peak E' Eevlyn: 9.9 cm/sec Med Peak E' Evelyn: 5.9 [...] Dictated: 04/14/17 1010 Date Transcribed: 04/14/17 153 Band And Cuff Cutter: Signed Mariza Brasher Iradileep Work Phone: Start: 04-12-2017 End: 04-13-2017 Chest PA and Lateral Comments: See Note; NOTES: [facility] Imaging Services [address] [place] [address] Chest PA and Lateral MR#: [id number] Acct: [id number] Name: ISAURA CORNELIUS Rep #: [id number] : 1970 F 46 From: Jh Lyons MD PCP: Mariza Haynes Status: REG CLI Study: Chest PA and Lateral Date of Exam: 04/12/17 Exam# [id number] Ordering Dr: Mariza Haynes STUDY: X-RAY CHEST [...] Jh Lyons MD at 14:58 EST Tel [phone], Service support , CC: Mariza Haynes Band And Cuff Cutter: Signed Mariza Haynes Work Phone: Start: 03-29-2017 End: 03-29-2017 12 lead ECG Comments: See Note; NOTES: [facility] Cardiovascular Services [address] [place] [address] 12 Lead EKG 03/26/172253 MR#: [id number] Acct: [id number] Name: ISAURA CORNELIUS Rep #: [id number] : 1970 46 From: Alessio Bee MD [...] ECG Confirmed by ABHIJEET GRACIA, ALESSIO ([id number]), scientific publications editor KALLI ESPINOSA ([id number]) on 03/29/2017 2:48:41 PM Referred By: DARRYL Confirmed By:ALESSIO BEE MD 03/29/17 1448 Date Alessio Bee MD CC: Julieta Brandt DO Date Dictated: 03/26/17 2254 Date Transcribed: 03/26/172253 Band And Cuff Cutter: Signed Mariza Haynes Start: 03-27-2017 End: 03-27-2017 Discharge Instruction Comments: See Note; NOTES: [facility] Medical Records Department [address] [place] [address] Discharge Instruction 03/27/17 0111 MR#: [id number] Acct: [id number] Name: ISAURA CORNELIUS Rep #: [id number] : 1970 46 From: Sam Brewer MD [...] your Primary Care Provider. Call [facility] ([phone]) or report to the closest Emergency Room. Call 911 if necessary. 03/27/17 011 <Electronically signed by Sam Brewer MD> Date Sam Brewer MD Cosigner Signature (If Indicated): Date CC: Julieta Brandt DO Mariza Haynes Start: 03-27-2017 End: 03-27-2017 Emergency Department Summary Comments: See Note; NOTES: [facility] Medical Records Department [address] [place] [address] Emergency Department Summary 03/27/17 0056 MR#: [id number] Acct: [id number] Name: ISAURA CORNELIUS Rep #: [id number] : 1970 46 From: Sam Brewer MD [...] 10 years ago. She did travel to [place] in October. She also complains of a [...] problems, contact your Primary Care Provider. Call [facility] ([phone]) or report to the closest Emergency Room. Call 911 if necessary. 03/27/17 0059 <Electronically signed by Sam Brewer MD> Date Sam Brewer MD Cosigner Signature (If Indicated): Date CC: Julieta Karly DO Mariza Haynes Start: 03-26-2017 End: 03-27-2017 CTA Chest W/WO Contrast Comments: See Note; NOTES: [facility] Imaging Services [address] [place] [address] CTA Chest W/WO Contrast MR#: [id number] Acct: [id number] Name: ISAURA CORNELIUS Rep #: [id number] : 1970 F 46 From: Bimal Suresh PCP: Julieta Brandt DO Status: REG ER Study: CTA Chest W/WO Contrast Date of Exam: 03/26/17 Exam# [id number] Ordering Dr: Sam Brewer MD STUDY: CTA [...] CC: Sam Brewer MD; Julieta Brandt DO Band And Cuff Cutter: Signed Mariza Haynes Section - 2 Mee Vogel Section - 2 Mariana Slarb Nasal septoplasty Mee Loc klear Nasal septoplasty Mariana Sla rb Total thyroidectomy Mee L ocklear Total thyroidectomy Mariana S larb Plan of Treatment Date Care Activity Detail Author Start: 02-27-2032 Colonoscopy COLONOSCOPY [facility] Start: 02-27-2032 COLORECTAL CANCER SCREENING COLORECTAL CANCER SCREENING [facility] Start: 02-06-2027 Lipid 1996 panel - Serum or Plasma Lipid Screening [facility] Start: 02-06-2027 LIPID SCREEN LIPID SCREEN [facility] Start: 04-01-2026 Diabetes Screening Diabetes Screening [facility] Start: 12-25-2025 DIABETES SCREEN DIABETES SCREEN [facility] Start: 12-25-2025 Diabetes Screening Diabetes Screening [facility] Start: 03-13-2025 DIABETES SCREEN DIABETES SCREEN [facility] Start: 02-06-2025 DIABETES SCREEN DIABETES SCREEN [facility] Start: 09-25-2024 DIABETES SCREEN DIABETES SCREEN [facility] Start: 07-25-2024 HPV TESTING HPV TESTING [facility] Start: 07-25-2024 PAP TESTING PAP TESTING [facility] Start: 07-18-2024 LIPID SCREEN LIPID SCREEN [facility] Start: 07-15-2024 DIABETES SCREEN DIABETES SCREEN [facility] Start: 04-01-2024 Annual PCP Team Chronic Disease Visit Annual PCP Team Chronic Disease Visit [facility] Start: 03-18-2024 Mammography Mammogram Screening [facility] Start: 03-30-2023 ANNUAL PCP TEAM CHRONIC DISEASE VISIT ANNUAL PCP TEAM CHRONIC DISEASE VISIT [facility] Start: 03-05-2023 Mammography [facility] Start: 02-26-2023 Colonoscopy COLONOSCOPY [facility] Start: 02-26-2023 COLORECTAL CANCER SCREENING COLORECTAL CANCER SCREENING [facility] Start: 01-29-2023 Influenza vaccination [facility] Start: 01-21-2023 ANNUAL PCP TEAM CHRONIC DISEASE VISIT ANNUAL PCP TEAM CHRONIC DISEASE VISIT [facility] Start: 09-24-2022 ANNUAL PCP TEAM CHRONIC DISEASE VISIT ANNUAL PCP TEAM CHRONIC DISEASE VISIT [facility] Start: 09-12-2022 ANNUAL PCP TEAM CHRONIC DISEASE VISIT ANNUAL PCP TEAM CHRONIC DISEASE VISIT [facility] Start: 01-29-2022 Influenza vaccination INFLUENZA (#1) [facility] Start: 01-21-2022 End: 03-23-2022 25-hydroxyvitamin D3 [Mass/volume] in Serum or Plasma VITAMIN D 25 HYDROXY Lab Routine Vitamin D deficiency Postsurgical hypothyroidism Well adult exam Expected: 01/21/2022, Expires: 03/23/2022 [facility] Work Phone: Immunizations Immunization Date Immunization Notes Care Provider Fa randy 02-28-2021 influenza, injectabl e, quadrivalent, preservative free Roycealanis Lujan CARTRIDGE LOADING OPERATOR.ETYMOLOGY PROFESSOR Work Phone: [facility] 02-28-2021 influenza virus vaccine, unspecified formulation Jessica Polo MD Work Phone: [facility] 07-28-2003 tetanus and diphther ia toxoids, adsorbed, preservative free, for adult use (2 Lf of tetanus toxoid and 2 Lf of diphtheria toxoid) Royce Lujan CARTRIDGE LOADING OPERATOR.ETYMOLOGY PROFESSOR Work Phone: [facility] Work Phone: Payers Date Payer Category Payer Private Health Insurance [id number] 2021 Private Health Insurance [facility] CHOICE PLUS [id number] 2021-Present [phone] [address] [place] [address] O [id number] 2021 Private Health Insurance [id number] 2017 Unknown [id number] Unknown [facility] Social History Date Type Detail Facility Start: 09-12-2021 End: 11-13-2022 Caffeine Use Never smoker [facility] Work Phone: Clinical Notes 11-30-2019 to 12-18-2023 Telephone Encounter - Tiffany Perez Ma - 05/04/2023 12:40 PM ESTTelephone Encounter - Tiffany Perez Ma - 05/04/2023 12:39 PM Jerri Mujica Mammo Tech - 03/18/2023 12:30 PM EDT Note Date & Type Note Facility 05-17-2023 Note HNO ID: [id number] Author: Ivory Lemus APRN.CNP Service: ? Author Type: Nurse Practitioner Type: Progress Notes Filed: 05/17/2023 11:51 AM Note Text: Patient experiencing technical difficulties and unable to join even when sent a direct link. Has been offered an appointment for this afternoon. [facility] 05-04-2023 Miscellaneous Notes Patient last visit with PCP 04/01/23 Follow up appointment scheduled none Tiffany Perez Ma documented in this encounter [facility] 05-04-2023 Miscellaneous Notes Patient last visit with PCP 04/01/23 Follow up appointment scheduled none Tiffany Perez Ma documented in this encounter [facility] 04-08-2023 Miscellaneous Notes PA ran and state no PA needed [facility] Called [facility] to see what issue was since I'm getting no PA needed. They are ordering drug and said insurance does cover but expensive. Called patient aware to call and speak to pharmacy if she willing to pay for drug Tiffany Perez Ma Yes, OK to complete. Thank you, Letty Montez APRN.ETYMOLOGY PROFESSOR Pt stated that she was prescribed Wegovy and was told it needed PA. Ok to do PA? documented in this encounter [facility] 04-08-2023 Miscellaneous Notes Pt notified. She will take the HCTZ as needed. Mariela Valenzuela Ma Left message to return call. If she would like she could take the HCTZ prn as I believe she is taking it for her legs swelling. Royce Lujan APRN.ETYMOLOGY PROFESSOR PT INFORMED, VERBALIZED UNDERSTANDING. Pt asking if she should continue to take the hydrochlorothiazide. Please advise. Ruth Villanueva Please let patient know I received her lab results. Her TSH is in normal range, but higher than typical. I would recommend she contact her lamination spinner for recommendations since she is not feeling well. Her potassium level is still just a little bit low, but significantly. If she would like to take a small potassium supplement we could do that, but it is not completely necessary. Royce Lujan APRN.NATALIIA documented in this encounter [facility] 04-01-2023 Note HNO ID: [id number] Author: Royce Lujan APRN.CNP Service: ? Author [...] HISTORY OF 04-15-2007 Cardiolity Stress Test - [facility] Thyroid cancer (HCC) Unspecified hypothyroidism Previous Surgical History PAST SURGICAL HISTORY Procedure Laterality Date DELIVERY ONLY 11/28/1998 , low cervical DELIVERY ONLY 06/21/2001 , low cervical COLONOSCOPY 02/26/2022 DILATION AND CURETTAGE DXAND/THER NONOBSTETRIC 05/31/1990 Dilation AND curettage EGD 02/26/2022 EGD TRANSORAL BIOPSY SINGLE/MULTIPLE 12/12/2009 HYSTEROSCOPY, DIAGNOSTIC (SEPARATE 02/06/2021 Hysteroscopy DANDC for PMB at [facility]-Dr. Polo LIG/TRNSXJ FLP TUBE ABDL/VAG APPR UNI/BI [...] Normocephalic, no ma (more content not included)... [facility] 03-18-2023 Note HNO ID: [id number] Author: Jerri Dubon Mammo Tech Service: ? Author Type: Data Designer Type: Progress Notes Filed: 03/18/2023 12:58 PM [...] Elif Fink March 18, 2023 12:32 PM [facility] 03-18-2023 History of Present illness Narrative Radiology [...] 2023 12:32 PM documented in this encounter [facility] 03-05-2023 Miscellaneous Notes Addended by: JESSICA POLO on: 03/05/2023 09:16 AM Modules accepted: Orders Mammogram ordered documented in this encounter [facility] 01-01-2023 Note HNO ID: [id number] Author: Royce Lujan APRN.CNP Service: ? Author Type: Nurse Practitioner Type: Progress Notes Filed: 01/01/2023 3:57 PM Note Text: The following approved medication requests have been transmitted electronically. Requested Prescriptions Signed Prescriptions Disp Refills azithromycin (ZITHROMAX Z-KENDRICK) 250 mg tablet 6 tablet 0 Sig: Take 2 tablets day one, then, 1 tablet daily until gone. Royce Lujan APRN.CNP [facility] 01-01-2023 History of Present illness Narrative The following approved medication requests have been transmitted electronically. Requested Prescriptions Signed Prescriptions Disp Refills azithromycin (ZITHROMAX Z-KENDRICK) 250 mg tablet 6 tablet 0 Sig: Take 2 tablets day one, then, 1 tablet daily until gone. Royce Lujan APRN.CNP documented in this encounter [facility] 11-17-2022 Note HNO ID: [id number] Author: Mariza Gonsalves APRN.CNP Service: ? Author [...] visit. Either the patient or their legal underwriting account representative has been informed of the risks and benefits of -- and alternatives to -- treatment through a remote evaluation and consents to proceed with the evaluation remotely. 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 HPI: Patient [...] employment. Patient reports 3 weeks ago moved aqxnek-b-ehy into their home, it's overwhelming, straining on [...] HISTORY OF 04-15-2007 Cardiolity Stress Test - [facility] Thyroid cancer (HCC) Unspecified hypothyroidism PAST SURGICAL HISTORY Procedure Laterality Date DELIVERY ONLY 11/28/1998 , low cervical DELIVERY ONLY 06/21/2001 , low cervical COLONOSCOPY 02/26/2022 DILATION AND CURETTAGE DXAND/THER NONOBSTETRIC 05/31/1990 Dilation AND curettage EGD 02/26/2022 EGD TRANSORAL BIOPSY SINGLE/MULTIPLE 12/12/2009 HYSTEROSCOPY, DIAGNOSTIC (SEPARATE 02/06/2021 Hysteroscopy DANMD for PMB at [facility]-Dr. Polo LIG/TRNSXJ FLP TUBE ABDL/VAG APPR UNI/BI [...] NEEDED FOR WHEEZING/SH (more content not included)... [facility] 11-17-2022 Instructions Mariza Gonsalves APRN.[facility] - 11/17/2022 2:20 PM EDT PLAN: 1. MEDS Wellbutrin XL 150 mg daily, then 300 mg daily Lamictal 100 mg daily Zoloft 200 mg daily 2. Psychotherapy and 3 month follow up [phone] Hospice senia/therapist 3. PCP follow up documented in this encounter [facility] 11-17-2022 History of Present illness Narrative Images [...] visit. Either the patient or their legal underwriting account representative has been informed of the risks and benefits of -- and alternatives to -- treatment through a remote evaluation and consents to proceed with the evaluation remotely. 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 HPI: Patient [...] employment. Patient reports 3 weeks ago moved merjtl-p-kbm into their home, it's overwhelming, straining on [...] HISTORY OF 04-15-2007 Cardiolity Stress Test - [facility] Thyroid cancer (HCC) Unspecified hypothyroidism PAST SURGICAL HISTORY Procedure Laterality Date DELIVERY ONLY 11/28/1998 , low cervical DELIVERY ONLY 06/21/2001 , low cervical COLONOSCOPY 02/26/2022 DILATION & CURETTAGE DX&/THER NONOBSTETRIC 05/31/1990 Dilation & curettage EGD 02/26/2022 EGD TRANSORAL BIOPSY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 01/15/2014 Overview: Plans to try plant based protein diet as of 10-05 documented as of this encounter (statuses as of 03/06/2022) [facility] History of Past illness Narrative* Problem Noted Date Resolved Date Hypokalemia 11/30/2019 11/30/2019 Prolonged Q-T interval on ECG 11/30/2019 Suspected COVID-19 virus infection 11/30/2019 11/30/2019 Obesity 01/15/2014 01/03/2015 Enlargement of lymph nodes 10/04/201307/30 Acute gastritis without mention of hemorrhage 07/30/2014 Overweight(278.02) 10/28/2007 01/15/2014 Overview: Plans to try plant based protein diet as of 10-05 documented as of this encounter (statuses as of 03/06/2022) [facility] History of Past illness Narrative* Problem Noted Date Resolved Date Hypokalemia 11/30/2019 11/30/2019 Prolonged Q-T interval on ECG 11/30/2019 Suspected COVID-19 virus infection 11/30/2019 11/30/2019 Obesity 01/15/2014 01/03/2015 Enlargement of lymph nodes 10/04/201307/30 Acute gastritis without mention of hemorrhage 07/30/2014 Overweight(278.02) 10/28/2007 01/15/2014 Overview: Plans to try plant based protein diet as of 10-05 documented as of this encounter (statuses as of 03/16/2022) [facility] History of Past illness Narrative* Problem Noted Date Resolved Date Hypokalemia 11/30/2019 11/30/2019 Prolonged Q-T interval on ECG 11/30/2019 Suspected COVID-19 virus infection 11/30/2019 11/30/2019 Obesity 01/15/2014 01/03/2015 Enlargement of lymph nodes 10/04/201307/30 Acute gastritis without mention of hemorrhage 07/30/2014 Overweight(278.02) 10/28/2007 01/15/2014 Overview: Plans to try plant based protein diet as of 10-05 documented as of this encounter (statuses as of 03/30/2022) [facility] History of Past illness Narrative* Problem Noted Date Resolved Date Hypokalemia 11/30/2019 11/30/2019 Prolonged Q-T interval on ECG 11/30/2019 Suspected COVID-19 virus infection 11/30/2019 11/30/2019 Obesity 01/15/2014 01/03/2015 Enlargement of lymph nodes 10/04/201307/30 Acute gastritis without mention of hemorrhage 07/30/2014 Overweight(278.02) 10/28/2007 01/15/2014 Overview: Plans to try plant based protein diet as of 10-05 documented as of this encounter (statuses as of 04/01/2022) [facility] History of Past illness Narrative* Problem Noted Date Resolved Date Hypokalemia 11/30/2019 11/30/2019 Prolonged Q-T interval on ECG 11/30/2019 Suspected COVID-19 virus infection 11/30/2019 11/30/2019 Obesity 01/15/2014 01/03/2015 Enlargement of lymph nodes 10/04/201307/30 Acute gastritis without mention of hemorrhage 07/30/2014 Overweight(278.02) 10/28/2007 01/15/2014 Overview: Plans to try plant based protein diet as of 10-05 documented as of this encounter (statuses as of 04/08/2022) [facility] History of Past illness Narrative* Problem Noted Date Resolved Date Hypokalemia 11/30/2019 11/30/2019 Prolonged Q-T interval on ECG 11/30/2019 Suspected COVID-19 virus infection 11/30/2019 11/30/2019 Obesity 01/15/2014 01/03/2015 Enlargement of lymph nodes 10/04/201307/30 Acute gastritis without mention of hemorrhage 07/30/2014 Overweight(278.02) 10/28/2007 01/15/2014 Overview: Plans to try plant based protein diet as of 10-05 documented as of this encounter (statuses as of 04/09/2022) [facility] History of Past illness Narrative* Problem Noted Date Resolved Date Hypokalemia 11/30/2019 11/30/2019 Prolonged Q-T interval on ECG 11/30/2019 Suspected COVID-19 virus infection 11/30/2019 11/30/2019 Obesity 01/15/2014 01/03/2015 Enlargement of lymph nodes 10/04/201307/30 Acute gastritis without mention of hemorrhage 07/30/2014 Overweight(278.02) 10/28/2007 01/15/2014 Overview: Plans to try plant based protein diet as of 10-05 documented as of this encounter (statuses as of 04/29/2022) [facility] History of Past illness Narrative* Problem Noted Date Resolved Date Hypokalemia 11/30/2019 11/30/2019 Prolonged Q-T interval on ECG 11/30/2019 Suspected COVID-19 virus infection 11/30/2019 11/30/2019 Obesity 01/15/2014 01/03/2015 Enlargement of lymph nodes 10/04/201307/30 Acute gastritis without mention of hemorrhage 07/30/2014 Overweight(278.02) 10/28/2007 01/15/2014 Overview: Plans to try plant based protein diet as of 10-05 documented as of this encounter (statuses as of 05/18/2022) [facility] History of Past illness Narrative* Problem Noted Date Resolved Date Hypokalemia 11/30/2019 11/30/2019 Prolonged Q-T interval on ECG 11/30/2019 Suspected COVID-19 virus infection 11/30/2019 11/30/2019 Obesity 01/15/2014 01/03/2015 Enlargement of lymph nodes 10/04/201307/30 Acute gastritis without mention of hemorrhage 07/30/2014 Overweight(278.02) 10/28/2007 01/15/2014 Overview: Plans to try plant based protein diet as of 10-05 documented as of this encounter (statuses as of 06/03/2022) [facility] History of Past illness Narrative* Problem Noted Date Resolved Date Hypokalemia 11/30/2019 11/30/2019 Prolonged Q-T interval on ECG 11/30/2019 Suspected COVID-19 virus infection 11/30/2019 11/30/2019 Obesity 01/15/2014 01/03/2015 Enlargement of lymph nodes 10/04/201307/30 Acute gastritis without mention of hemorrhage 07/30/2014 Overweight(278.02) 10/28/2007 01/15/2014 Overview: Plans to try plant based protein diet as of 10-05 documented as of this encounter (statuses as of 06/05/2022) [facility] History of Past illness Narrative* Problem Noted Date Resolved Date Hypokalemia 11/30/2019 11/30/2019 Prolonged Q-T interval on ECG 11/30/2019 Suspected COVID-19 virus infection 11/30/2019 11/30/2019 Obesity 01/15/2014 01/03/2015 Enlargement of lymph nodes 10/04/201307/30 Acute gastritis without mention of hemorrhage 07/30/2014 Overweight(278.02) 10/28/2007 01/15/2014 Overview: Plans to try plant based protein diet as of 10-05 documented as of this encounter (statuses as of 06/17/2022) [facility] History of Past illness Narrative* Problem Noted Date Resolved Date Hypokalemia 11/30/2019 11/30/2019 Prolonged Q-T interval on ECG 11/30/2019 Suspected COVID-19 virus infection 11/30/2019 11/30/2019 Obesity 01/15/2014 01/03/2015 Enlargement of lymph nodes 10/04/201307/30 Acute gastritis without mention of hemorrhage 07/30/2014 Overweight(278.02) 10/28/2007 01/15/2014 Overview: Plans to try plant based protein diet as of 10-05 documented as of this encounter (statuses as of 06/26/2022) [facility] History of Past illness Narrative* Problem Noted Date Resolved Date Hypokalemia 11/30/2019 11/30/2019 Prolonged Q-T interval on ECG 11/30/2019 Suspected COVID-19 virus infection 11/30/2019 11/30/2019 Obesity 01/15/2014 01/03/2015 Enlargement of lymph nodes 10/04/201307/30 Acute gastritis without mention of hemorrhage 07/30/2014 Overweight(278.02) 10/28/2007 01/15/2014 Overview: Plans to try plant based protein diet as of 10-05 documented as of this encounter (statuses as of 06/29/2022) [facility] History of Past illness Narrative* Problem Noted Date Resolved Date Hypokalemia 11/30/2019 11/30/2019 Prolonged Q-T interval on ECG 11/30/2019 Suspected COVID-19 virus infection 11/30/2019 11/30/2019 Obesity 01/15/2014 01/03/2015 Enlargement of lymph nodes 10/04/201307/30 Acute gastritis without mention of hemorrhage 07/30/2014 Overweight(278.02) 10/28/2007 01/15/2014 Overview: Plans to try plant based protein diet as of 10-05 documented as of this encounter (statuses as of 09/29/2022) [facility] History of Past illness Narrative* Problem Noted Date Resolved Date Hypokalemia 11/30/2019 11/30/2019 Prolonged Q-T interval on ECG 11/30/2019 Suspected COVID-19 virus infection 11/30/2019 11/30/2019 Obesity 01/15/2014 01/03/2015 Enlargement of lymph nodes 10/04/201307/30 Acute gastritis without mention of hemorrhage 07/30/2014 Overweight(278.02) 10/28/2007 01/15/2014 Overview: Plans to try plant based protein diet as of 10-05 documented as of this encounter (statuses as of 10/08/2022) [facility] History of Past illness Narrative* Problem Noted Date Resolved Date Hypokalemia 11/30/2019 11/30/2019 Prolonged Q-T interval on ECG 11/30/2019 Suspected COVID-19 virus infection 11/30/2019 11/30/2019 Obesity 01/15/2014 01/03/2015 Enlargement of lymph nodes 10/04/201307/30 Acute gastritis without mention of hemorrhage 07/30/2014 Overweight(278.02) 10/28/2007 01/15/2014 Overview: Plans to try plant based protein diet as of 10-05 documented as of this encounter (statuses as of 10/25/2022) [facility] History of Past illness Narrative* Problem Noted Date Resolved Date Hypokalemia 11/30/2019 11/30/2019 Prolonged Q-T interval on ECG 11/30/2019 Suspected COVID-19 virus infection 11/30/2019 11/30/2019 Obesity 01/15/2014 01/03/2015 Enlargement of lymph nodes 10/04/201307/30 Acute gastritis without mention of hemorrhage 07/30/2014 Overweight(278.02) 10/28/2007 01/15/2014 Overview: Plans to try plant based protein diet as of 10-05 documented as of this encounter (statuses as of 11/12/2022) [facility] History of Past illness Narrative* Problem Noted Date Resolved Date Hypokalemia 11/30/2019 11/30/2019 Prolonged Q-T interval on ECG 11/30/2019 Suspected COVID-19 virus infection 11/30/2019 11/30/2019 Obesity 01/15/2014 01/03/2015 Enlargement of lymph nodes 10/04/201307/30 Acute gastritis without mention of hemorrhage 07/30/2014 Overweight(278.02) 10/28/2007 01/15/2014 Overview: Plans to try plant based protein diet as of 10-05 documented as of this encounter (statuses as of 11/12/2022) [facility] History of Past illness Narrative* Problem Noted Date Resolved Date Hypokalemia 11/30/2019 11/30/2019 Prolonged Q-T interval on ECG 11/30/2019 Suspected COVID-19 virus infection 11/30/2019 11/30/2019 Obesity 01/15/2014 01/03/2015 Enlargement of lymph nodes 10/04/201307/30 Acute gastritis without mention of hemorrhage 07/30/2014 Overweight(278.02) 10/28/2007 01/15/2014 Overview: Plans to try plant based protein diet as of 10-05 documented as of this encounter (statuses as of 11/18/2022) [facility] History of Past illness Narrative* Problem Noted [...] of this encounter (statuses as of 01/02/2023) [facility] History of Past illness Narrative* Problem Noted [...] of this encounter (statuses as of 03/06/2023) [facility] History of Past illness Narrative* Problem Noted [...] of this encounter (statuses as of 04/04/2023) [facility] History of Past illness Narrative* Problem Noted [...] of this encounter (statuses as of 04/08/2023) [facility] History of Past illness Narrative* Problem Noted [...] of this encounter (statuses as of 04/08/2023) [facility] History of Past illness Narrative* Problem Noted [...] of this encounter (statuses as of 05/05/2023) [facility] History of Past illness Narrative* Problem Noted [...] of this encounter (statuses as of 05/05/2023) [facility] note* Diagnosis RUQ pain- Primary Abdominal pain, right upper quadrant [facility] Diagnosis Cough SOB (shortness of breath) Shortness of breath [facility] Diagnosis Right upper quadrant abdominal mass Abdominal or pelvic swelling, mass, or lump, right upper quadrant [facility] Diagnosis Right upper quadrant abdominal mass- Primary Abdominal or pelvic swelling, mass, or lump, right upper quadrant Bilateral leg edema Edema [facility] Diagnosis NO SHOW- Primary [facility] Diagnosis KENJI (generalized anxiety disorder)- Primary Generalized anxiety disorder Major depressive disorder, recurrent severe without psychotic features (HCC) Major depressive disorder, recurrent episode, severe, without mention of psychotic behavior Chronic post-traumatic stress disorder (PTSD) [facility] Diagnosis Well adult exam- Primary Routine general medical examination at a health care facility Urinary frequency Vitamin D deficiency Unspecified vitamin D deficiency Burning with urination Dysuria Postsurgical hypothyroidism Screening for colon cancer Special screening for malignant neoplasms, colon Special screening for malignant neoplasms, colon Screening for lipid disorders Screening for diabetes mellitus [facility] Diagnosis Encounter for gynecological examination (general) (routine) without abnormal findings- Primary Encounter for screening mammogram for malignant neoplasm of breast Other screening mammogram Vaginal atrophy Postmenopausal atrophic vaginitis [facility] Diagnosis Change in bowel habits- Primary Other symptoms involving digestive system Fecal urgency Loose stools Abnormal feces Gastroesophageal reflux disease, unspecified whether esophagitis present [facility] Diagnosis Encounter for screening mammogram for malignant neoplasm of breast Other screening mammogram [facility] Diagnosis Chronic superficial gastritis without bleeding- Primary Atrophic gastritis without mention of hemorrhage History of IBS Personal history of other diseases of digestive system documented in this encounter [facility] note* Diagnosis KENJI (generalized anxiety disorder)- Primary Generalized anxiety disorder Major depressive disorder, recurrent episode, moderate (HCC) Major depressive disorder, recurrent episode, moderate Chronic post-traumatic stress disorder (PTSD) documented in this encounter [facility] note* Diagnosis History of pulmonary embolism- Primary Personal history of pulmonary embolism Right calf pain documented in this encounter [facility] note* Diagnosis COVID-19 virus infection SOB (shortness of breath) Shortness of breath Vitamin D deficiency Unspecified vitamin D deficiency documented in this encounter [facility] note* Diagnosis Diarrhea, unspecified type- Primary documented in this encounter [facility] note* Diagnosis Vitamin D deficiency Unspecified vitamin D deficiency documented in this encounter [facility] note* Diagnosis COVID-19 virus infection SOB (shortness of breath) Shortness of breath documented in this encounter [facility] note* Diagnosis KENJI (generalized anxiety disorder)- Primary Generalized anxiety disorder Major depressive disorder, recurrent episode, moderate (HCC) Major depressive disorder, recurrent episode, moderate Chronic post-traumatic stress disorder (PTSD) documented in this encounter [facility] note* Diagnosis Encounter for screening mammogram for malignant neoplasm of breast- Primary Other screening mammogram documented in this encounter [facility] note* Diagnosis Encounter for screening mammogram for malignant neoplasm of breast Other screening mammogram documented in this encounter [facility] note* Diagnosis COVID-19 virus infection SOB (shortness of breath) Shortness of breath documented in this encounter [facility] note* Diagnosis Cough SOB (shortness of breath) Shortness of breath documented in this encounter [facility] for referral (narrative)* Diagnostic Procedure Only (Routine) - Closed Specialty Diagnoses / Procedures Referred By Peterson nichols Referred To Contact [facility] Diagnoses Right upper quadrant abdominal mass Procedures US ABDOMEN LTD US ABDOMINAL REAL TIME W/IMAGE LIMITED Royce Lujan APRN.CNP [address] [place] [address] [facility] Referral ID Status Reason Start Date Expiration Date V isits Requested Visits Authorized [id number] Closed Auto-Generate d Referral 09/25/2021 10/25/2022 1 1 [facility] for referral (narrative)* Diagnostic Procedure Only (Routine) - Closed Specialty Diagnoses / Procedures Referred By Peterson t Referred To Contact [facility] Diagnoses Right upper quadrant abdominal mass Procedures US ABDOMEN LTD US ABDOMINAL REAL TIME W/IMAGE LIMITED Royce Lujan APRN.ETYMOLOGY PROFESSOR [address] [place] [address] [facility] Referral ID Status Reason Start Date Expiration Date V isits Requested Visits Authorized [id number] Closed Auto-Generate d Referral 09/25/2021 10/25/2022 1 1 [facility] for referral (narrative)* Outpatient Procedure (Routine) - Pending Review Specialty Diagnoses / Procedures Referred By Peterson nichols Referred To Contact [facility] Diagnoses Screening for colon cancer Procedures COLONOSCOPY SCREENING COLONOSCOPY FLX DX W/COLLJ SPEC WHEN PFRMD Royce Lujan APRN.ETYMOLOGY PROFESSOR [address] [id number] [facility] [address] [place] [address] Referral ID Status Reason Start Date Expiration Date Visits Requested Visits Authorized [id number] Pending Review Auto-Generat ed Referral 01/21/2022 01/21/2023 1 1 [facility] for referral (narrative)* Diagnostic Procedure Only (Routine) - Pending Review Specialty Diagnoses / Procedures Referred By Contac t Referred To Contact [facility] Diagnoses Encounter for screening mammogram for malignant neoplasm of breast Procedures BETTY SCREENING W JENN SCREENING DIGITAL BREAST TOMOSYNTHESIS BI SCREENING MAMMOGRAPHY BI 2-VIEW BREAST INC CAD Jessica Acevedo MD [address] [place] [address] [facility] [address] [place] [address] Referral ID Status Reason Start Date Expiration Date Visits Requested Visits Authorized [id number] Pending Review Auto-Generat ed Referral 01/29/2022 02/28/2023 1 1 [facility] for referral (narrative)* Diagnostic Procedure Only (Routine) - Closed Specialty Diagnoses / Procedures Referred By Peterson t Referred To Contact [facility] Diagnoses Encounter for screening mammogram for malignant neoplasm of breast Procedures BETTY SCREENING W JENN SCREENING DIGITAL BREAST TOMOSYNTHESIS BI SCREENING MAMMOGRAPHY BI 2-VIEW BREAST INC CAD Jessica Acevedo MD [address] [place] [address] [facility] [address] [place] [address] Referral ID Status Reason Start Date Expiration Date V isits Requested Visits Authorized [id number] Closed Auto-Generate d Referral 01/29/2022 02/28/2023 1 1 [facility] for referral (narrative)* Outpatient Procedure (Urgent) - Authorized Specialty Diagnoses / Procedures Referred By Peterson nichols Referred To Contact [facility] Diagnoses History of pulmonary embolism Right calf pain Procedures US LEG VEIN DVT UNL VAS LAB DUP-SCAN XTR VEINS UNILATERAL/LIMITED STUDY Royce Lujan APRN.ETYMOLOGY PROFESSOR [address] [place] [address] [facility] [place] [address] [place] [address] Referral ID Status Reason Start Date Expiration Date Visits Requested Visits Authorized [id number] Authorized Auto-Generat ed Referral 03/30/2023 1 1 * Diagnostic Procedure Only (Urgent) - Pending Review Specialty Diagnoses / Procedures Referred By Peterson nichols Referred To Contact [facility] Diagnoses History of pulmonary embolism Right calf pain Procedures US DVT LOWER RT DUP-SCAN XTR VEINS UNILATERAL/LIMITED STUDY Royce Lujan APRN.CNP [address] [place] [address] [facility] Referral ID Status Reason Start Date Expiration Date Visits Requested Visits Authorized [id number] Pending Review Auto-Generat ed Referral 04/29/2023 1 1 [facility] for referral (narrative)* Diagnostic Procedure Only (Routine) - Pending Review Specialty Diagnoses / Procedures Referred By Peterson nichols Referred To Contact [facility] Diagnoses Encounter for screening mammogram for malignant neoplasm of breast Procedures BETTY SCREENING W JENN SCREENING DIGITAL BREAST TOMOSYNTHESIS BI SCREENING MAMMOGRAPHY BI 2-VIEW BREAST INC CAD Jessica Acevedo MD [address] [place] [address] [facility] [address] [place] [address] Referral ID Status Reason Start Date Expiration Date Visits Requested Visits Authorized [id number] Pending Review Auto-Generat ed Referral 03/05/2023 04/03/2024 1 1 * Diagnostic Procedure Only (Routine) - Pending Review Specialty Diagnoses / Procedures Referred By Peterson nichols Referred To Contact [facility] Diagnoses Encounter for screening mammogram for malignant neoplasm of breast Procedures BETTY SCREENING W JENN SCREENING DIGITAL BREAST TOMOSYNTHESIS BI SCREENING MAMMOGRAPHY BI 2-VIEW BREAST INC CAD Jessica Acevedo MD [address] [place] [address] [facility] [address] [place] [address] Referral ID Status Reason Start Date Expiration Date Visits Requested Visits Authorized [id number] Pending Review Auto-Generat ed Referral 03/05/2023 04/02/2024 1 1 [facility] for referral (narrative)* Diagnostic Procedure Only (Routine) - Closed Specialty Diagnoses / Procedures Referred By Peterson nichols Referred To Contact [facility] Diagnoses Encounter for screening mammogram for malignant neoplasm of breast Procedures BETTY SCREENING W JENN SCREENING DIGITAL BREAST TOMOSYNTHESIS BI SCREENING MAMMOGRAPHY BI 2-VIEW BREAST INC CAD Jessica Acevedo MD [address] [place] [address] [facility] [address] [place] [address] Referral ID Status Reason Start Date Expiration Date V isits Requested Visits Authorized [id number] Closed Auto-Generate d Referral 03/05/2023 04/02/2024 1 1 [facility] for visit Narrative* Diagnostic Procedure Only (Routine) - Closed Specialty Diagnoses / Procedures Referred By Peterson nichols Referred To Contact [facility] Diagnoses Encounter for screening mammogram for malignant neoplasm of breast Procedures BETTY SCREENING W JENN SCREENING DIGITAL BREAST TOMOSYNTHESIS BI SCREENING MAMMOGRAPHY BI 2-VIEW BREAST INC CAD Jessica Acevedo MD [address] [place] [address] [facility] [address] [place] [address] Referral ID Status Reason Start Date Expiration Date V isits Requested Visits Authorized [id number] Closed Auto-Generate d Referral 01/29/2022 02/28/2023 1 1 [facility] for visit Narrative* Diagnostic Procedure Only (Routine) - Closed Specialty Diagnoses / Procedures Referred By Peterson nichols Referred To Contact [facility] Diagnoses Encounter for screening mammogram for malignant neoplasm of breast Procedures BETTY SCREENING W JENN SCREENING DIGITAL BREAST TOMOSYNTHESIS BI SCREENING MAMMOGRAPHY BI 2-VIEW BREAST INC CAD Jessica Acevedo MD [address] [place] [address] [facility] [address] [place] [address] Referral ID Status Reason Start Date Expiration Date V isits Requested Visits Authorized [id number] Closed Auto-Generate d Referral 03/05/2023 04/02/2024 1 1 [facility] Summary Purpose Family History No Family History [...] FoundDocuments on File Type Date Recorded Patient [place] [employer] [facility] Advance Directive(s) Advance Directive(s) 11/29/2019 8:10 PM Documents on File Type Date Recorded Patient [place] [employer] Advance Directive(s) Advance Directive(s) 11/29/2019 [...] for Treatment Hospital Course Note HNO ID: [id number] Author: Antonietta Roldan Service: Hospital Medicine Author [...] GASTROENTEROLOGY Leonard Agrawal MD [address] [place] [address] Friend, Stanley Brewer, DO [address] [address] Referral ID Status Reason Start Date Expiration Date Visits Requested Visits Authorized [id number] Ref Not Required PCP Requested Referral 2 05/18/2023 1 1 Specialty Diagnoses / Procedures Referred By Contac t Referred To Contact Psychology Diagnoses KENJI (generalized anxiety disorder) Major depressive disorder, recurrent episode, moderate (HCC) Procedures CONSULT TO PSYCHOLOGY OFFICE/OUTPATIENT [facility] 60-74 MINUTES Mariza Gonsalves APRN.ETYMOLOGY PROFESSOR [address] [place] [address] Referral ID Status Reason Start Date Expiration Date Visits Requested Visits Authorized [id number] Pending Review PCP Requested Referral 12/17/2022 11/17/2023 1 1 Additional Source Comments INFORMATION SOURCE (unrecogn ized section and content) DATE CREATED AUTHOR AUTHOR'S ORGANIZ ATION 11/30/2017 [facility] ([place]) DATE CREATED AUTHOR AUTHOR'S ORGANIZ ATION 12/21/2019 [facility] DATE CREATED AUTHOR AUTHOR'S ORGANIZ ATION 05/18/2023 [facility] Source Comments (unrecognize d section and content) In the event this informatio n is protected by the Federal Confidentiality of Alcohol and Drug Abuse Patient Records regulations: The Federal rules restrict any use of the information to criminally investigate or prosecute any alcohol or drug abuse patient.[facility] the event this information is protected by the Federal Confidentiality of Alcohol and Drug Abuse Patient Records regulations: The Federal rules restrict any use of the information to criminally investigate or prosecute any alcohol or drug abuse patient.[facility] the event this information is protected by the Federal Confidentiality of Alcohol and Drug Abuse Patient Records regulations: The Federal rules restrict any use of the information to criminally investigate or prosecute any alcohol or drug abuse patient.[facility] the event this information is protected by the Federal Confidentiality of Alcohol and Drug Abuse Patient Records regulations: The Federal rules restrict any use of the information to criminally investigate or prosecute any alcohol or drug abuse patient.[facility] the event this information is protected by the Federal Confidentiality of Alcohol and Drug Abuse Patient Records regulations: The Federal rules restrict any use of the information to criminally investigate or prosecute any alcohol or drug abuse patient.[facility] the event this information is protected by the Federal Confidentiality of Alcohol and Drug Abuse Patient Records regulations: The Federal rules restrict any use of the information to criminally investigate or prosecute any alcohol or drug abuse patient.[facility] Center[facility] the event this information is protected by the Federal Confidentiality of Alcohol and Drug Abuse Patient Records regulations: The Federal rules restrict any use of the information to criminally investigate or prosecute any alcohol or drug abuse patient.[facility] Center[facility] the event this information is protected by the Federal Confidentiality of Alcohol and Drug Abuse Patient Records regulations: The Federal rules restrict any use of the information to criminally investigate or prosecute any alcohol or drug abuse patient.[facility] the event this information is protected by the Federal Confidentiality of Alcohol and Drug Abuse Patient Records regulations: The Federal rules restrict any use of the information to criminally investigate or prosecute any alcohol or drug abuse patient.[facility] the event this information is protected by the Federal Confidentiality of Alcohol and Drug Abuse Patient Records regulations: The Federal rules restrict any use of the information to criminally investigate or prosecute any alcohol or drug abuse patient.[facility] Center[facility] the event this information is protected by the Federal Confidentiality of Alcohol and Drug Abuse Patient Records regulations: The Federal rules restrict any use of the information to criminally investigate or prosecute any alcohol or drug abuse patient.[facility] Center[facility] the event this information is protected by the Federal Confidentiality of Alcohol and Drug Abuse Patient Records regulations: The Federal rules restrict any use of the information to criminally investigate or prosecute any alcohol or drug abuse patient.[facility] Center[facility] the event this information is protected by the Federal Confidentiality of Alcohol and Drug Abuse Patient Records regulations: The Federal rules restrict any use of the information to criminally investigate or prosecute any alcohol or drug abuse patient.[facility] Center[facility] the event this information is protected by the Federal Confidentiality of Alcohol and Drug Abuse Patient Records regulations: The Federal rules restrict any use of the information to criminally investigate or prosecute any alcohol or drug abuse patient.[facility] Center[facility] the event this information is protected by the Federal Confidentiality of Alcohol and Drug Abuse Patient Records regulations: The Federal rules restrict any use of the information to criminally investigate or prosecute any alcohol or drug abuse patient.[facility] Center[facility] the event this information is protected by the Federal Confidentiality of Alcohol and Drug Abuse Patient Records regulations: The Federal rules restrict any use of the information to criminally investigate or prosecute any alcohol or drug abuse patient.[facility] Center[facility] the event this information is protected by the Federal Confidentiality of Alcohol and Drug Abuse Patient Records regulations: The Federal rules restrict any use of the information to criminally investigate or prosecute any alcohol or drug abuse patient.[facility] CenterIn the event this information is protected by the Federal Confidentiality of Alcohol and Drug Abuse Patient Records regulations: The Federal rules restrict any use of the information to criminally investigate or prosecute any alcohol or drug abuse patient.[facility] Center[facility] the event this information is protected by the Federal Confidentiality of Alcohol and Drug Abuse Patient Records regulations: The Federal rules restrict any use of the information to criminally investigate or prosecute any alcohol or drug abuse patient.[facility] CenterIn the event this information is protected by the Federal Confidentiality of Alcohol and Drug Abuse Patient Records regulations: The Federal rules restrict any use of the information to criminally investigate or prosecute any alcohol or drug abuse patient.[facility] CenterIn the event this information is protected by the Federal Confidentiality of Alcohol and Drug Abuse Patient Records regulations: The Federal rules restrict any use of the information to criminally investigate or prosecute any alcohol or drug abuse patient.[facility] CenterIn the event this information is protected by the Federal Confidentiality of Alcohol and Drug Abuse Patient Records regulations: The Federal rules restrict any use of the information to criminally investigate or prosecute any alcohol or drug abuse patient.[facility] CenterIn the event this information is protected by the Federal Confidentiality of Alcohol and Drug Abuse Patient Records regulations: The Federal rules restrict any use of the information to criminally investigate or prosecute any alcohol or drug abuse patient.[facility] CenterIn the event this information is protected by the Federal Confidentiality of Alcohol and Drug Abuse Patient Records regulations: The Federal rules restrict any use of the information to criminally investigate or prosecute any alcohol or drug abuse patient.[facility] CenterIn the event this information is protected by the Federal Confidentiality of Alcohol and Drug Abuse Patient Records regulations: The Federal rules restrict any use of the information to criminally investigate or prosecute any alcohol or drug abuse patient.[facility] CenterIn the event this information is protected by the Federal Confidentiality of Alcohol and Drug Abuse Patient Records regulations: The Federal rules restrict any use of the information to criminally investigate or prosecute any alcohol or drug abuse patient.[facility] CenterIn the event this information is protected by the Federal Confidentiality of Alcohol and Drug Abuse Patient Records regulations: The Federal rules restrict any use of the information to criminally investigate or prosecute any alcohol or drug abuse patient.[facility] CenterIn the event this information is protected by the Federal Confidentiality of Alcohol and Drug Abuse Patient Records regulations: The Federal rules restrict any use of the information to criminally investigate or prosecute any alcohol or drug abuse patient.[facility] CenterIn the event this information is protected by the Federal Confidentiality of Alcohol and Drug Abuse Patient Records regulations: The Federal rules restrict any use of the information to criminally investigate or prosecute any alcohol or drug abuse patient.[facility] CenterIn the event this information is protected by the Federal Confidentiality of Alcohol and Drug Abuse Patient Records regulations: The Federal rules restrict any use of the information to criminally investigate or prosecute any alcohol or drug abuse patient.[facility] CenterIn the event this information is protected by the Federal Confidentiality of Alcohol and Drug Abuse Patient Records regulations: The Federal rules restrict any use of the information to criminally investigate or prosecute any alcohol or drug abuse patient.[facility] CenterIn the event this information is protected by the Federal Confidentiality of Alcohol and Drug Abuse Patient Records regulations: The Federal rules restrict any use of the information to criminally investigate or prosecute any alcohol or drug abuse patient.[facility] CenterIn the event this information is protected by the Federal Confidentiality of Alcohol and Drug Abuse Patient Records regulations: The Federal rules restrict any use of the information to criminally investigate or prosecute any alcohol or drug abuse patient.[facility] CenterIn the event this information is protected by the Federal Confidentiality of Alcohol and Drug Abuse Patient Records regulations: The Federal rules restrict any use of the information to criminally investigate or prosecute any alcohol or drug abuse patient.[facility] CenterIn the event this information is protected by the Federal Confidentiality of Alcohol and Drug Abuse Patient Records regulations: The Federal rules restrict any use of the information to criminally investigate or prosecute any alcohol or drug abuse patient.[facility] CenterIn the event this information is protected by the Federal Confidentiality of Alcohol and Drug Abuse Patient Records regulations: The Federal rules restrict any use of the information to criminally investigate or prosecute any alcohol or drug abuse patient.[facility] CenterIn the event this information is protected by the Federal Confidentiality of Alcohol and Drug Abuse Patient Records regulations: The Federal rules restrict any use of the information to criminally investigate or prosecute any alcohol or drug abuse patient.[facility] CenterIn the event this information is protected by the Federal Confidentiality of Alcohol and Drug Abuse Patient Records regulations: The Federal rules restrict any use of the information to criminally investigate or prosecute any alcohol or drug abuse patient.[facility] CenterIn the event this information is protected by the Federal Confidentiality of Alcohol and Drug Abuse Patient Records regulations: The Federal rules restrict any use of the information to criminally investigate or prosecute any alcohol or drug abuse patient.[facility] CenterIn the event this information is protected by the Federal Confidentiality of Alcohol and Drug Abuse Patient Records regulations: The Federal rules restrict any use of the information to criminally investigate or prosecute any alcohol or drug abuse patient.[facility] CenterIn the event this information is protected by the Federal Confidentiality of Alcohol and Drug Abuse Patient Records regulations: The Federal rules restrict any use of the information to criminally investigate or prosecute any alcohol or drug abuse patient.[facility] CenterIn the event this information is protected by the Federal Confidentiality of Alcohol and Drug Abuse Patient Records regulations: The Federal rules restrict any use of the information to criminally investigate or prosecute any alcohol or drug abuse patient.[facility] CenterIn the event this information is protected by the Federal Confidentiality of Alcohol and Drug Abuse Patient Records regulations: The Federal rules restrict any use of the information to criminally investigate or prosecute any alcohol or drug abuse patient.[facility] Reason for Visit (unrecogniz ed section and content) Reason Comments Refill Request Reason Comments Radiology US Specialty Diagnoses / Procedures Referred By Peterson t Referred To Contact [facility] Diagnoses Right upper quadrant abdominal mass Procedures US ABDOMEN LTD US ABDOMINAL REAL TIME W/IMAGE LIMITED Royce Lujan, CARTRIDGE LOADING OPERATOR.ETYMOLOGY PROFESSOR [address] [place] [address] [facility] Referral ID Status Reason Start Date Expiration Date V isits Requested Visits Authorized [id number] Closed Auto-Generate d Referral 09/25/2021 10/25/2022 1 [...] UP Procedures VIDEO PSYC/PSYL EST Royce Lujan, CARTRIDGE LOADING OPERATOR.ETYMOLOGY PROFESSOR [address] [place] [address] Ivory Lemus, CARTRIDGE LOADING OPERATOR.ETYMOLOGY PROFESSOR [address] [place] [address] Referral ID Status Reason Start Date Expiration Date V isits Requested Visits Authorized [id number] Pending Review 03/03/2022 06/01/2022 1 1 Reason [...] bridge appt Procedures VIDEO PSYC/PSYL EST Self Susan, Mariza Kaba, CARTRIDGE LOADING OPERATOR.ETYMOLOGY PROFESSOR [address] [address] Referral ID Status Reason Start Date Expiration Date Visits Requested Visits Authorized [id number] Authorized OON/Self Pay Override 05/31/2022 05/30/2023 99 99 Reason Onset Date Comments Refill Request 05/04/2023 Care Teams (unrecognized sec tion and content) Medical Underwriter Relationship Specialty Start Date End Date PremaRoyce, CARTRIDGE LOADING OPERATOR.ETYMOLOGY PROFESSOR [address] [place] [address] PCP - General Family Practice 07/03/19 Medical Underwriter Relationship Specialty Start Date End Date PremaJamiRoyce, CARTRIDGE LOADING OPERATOR.ETYMOLOGY PROFESSOR [address] [place] [address] PCP - General Family Practice 07/03/19 Medical Underwriter Relationship Specialty Start Date End Date PremaRoyce, CARTRIDGE LOADING OPERATOR.ETYMOLOGY PROFESSOR [address] [place] [address] PCP - General Family Practice 07/03/19 Medical Underwriter Relationship Specialty Start Date End Date PremaRoyce, CARTRIDGE LOADING OPERATOR.ETYMOLOGY PROFESSOR [address] [place] [address] PCP - General Family Practice 07/03/19 Medical Underwriter Relationship Specialty Start Date End Date PremaRoyce, CARTRIDGE LOADING OPERATOR.ETYMOLOGY PROFESSOR [address] [place] [address] PCP - General Family Practice 07/03/19 Medical Underwriter Relationship Specialty Start Date End Date JamiRoyce, CARTRIDGE LOADING OPERATOR.ETYMOLOGY PROFESSOR [address] [place] [address] PCP - General Family Practice 07/03/19 Medical Underwriter Relationship Specialty Start Date End Date PremaRoyce, CARTRIDGE LOADING OPERATOR.ETYMOLOGY PROFESSOR [address] [place] [address] PCP - General Family Practice 07/03/19 Medical Underwriter Relationship Specialty Start Date End Date Royce, CARTRIDGE LOADING OPERATOR.ETYMOLOGY PROFESSOR [address] [place] [address] PCP - General Family Practice 07/03/19 Medical Underwriter Relationship Specialty Start Date End Date Royce, CARTRIDGE LOADING OPERATOR.ETYMOLOGY PROFESSOR [address] [place] [address] PCP - General Family Practice 07/03/19 Medical Underwriter Relationship Specialty Start Date End Date Royce, CARTRIDGE LOADING OPERATOR.ETYMOLOGY PROFESSOR [address] [place] [address] PCP - General Family Practice 07/03/19 Medical Underwriter Relationship Specialty Start Date End Date Royce, CARTRIDGE LOADING OPERATOR.ETYMOLOGY PROFESSOR [address] [place] [address] PCP - General Family Practice 07/03/19 Medical Underwriter Relationship Specialty Start Date End Date PremaRoyce, CARTRIDGE LOADING OPERATOR.ETYMOLOGY PROFESSOR [address] [place] [address] PCP - General Family Practice 07/03/19 Medical Underwriter Relationship Specialty Start Date End Date PremaRoyce, CARTRIDGE LOADING OPERATOR.ETYMOLOGY PROFESSOR [address] [place] [address] PCP - General Family Medicine 07/03/19 Medical Underwriter Relationship Specialty Start Date End Date Royce Lujan, CARTRIDGE LOADING OPERATOR.ETYMOLOGY PROFESSOR [address] [place] [address] PCP - General Family Medicine 07/03/19 Medical Underwriter Relationship Specialty Start Date End Date Royce Lujan, CARTRIDGE LOADING OPERATOR.ETYMOLOGY PROFESSOR [address] [place] [address] PCP - General Family Medicine 07/03/19 Medical Underwriter Relationship Specialty Start Date End Date Royce Lujan, CARTRIDGE LOADING OPERATOR.ETYMOLOGY PROFESSOR [address] [place] [address] PCP - General Family Medicine 07/03/19 Medical Underwriter Relationship Specialty Start Date End Date Royce Lujan, CARTRIDGE LOADING OPERATOR.ETYMOLOGY PROFESSOR [address] [place] [address] PCP - General Family Medicine 07/03/19 Medical Underwriter Relationship Specialty Start Date End Date Royce Lujan, CARTRIDGE LOADING OPERATOR.ETYMOLOGY PROFESSOR [address] [place] [address] PCP - General Family Medicine 07/03/19 Medical Underwriter Relationship Specialty Start Date End Date Royce Lujan, CARTRIDGE LOADING OPERATOR.ETYMOLOGY PROFESSOR [address] [place] [address] PCP - General Family Medicine 07/03/19 Medical Underwriter Relationship Specialty Start Date End Date Royce Lujan, CARTRIDGE LOADING OPERATOR.ETYMOLOGY PROFESSOR [address] [place] [address] PCP - General Family Medicine 07/03/19 Medical Underwriter Relationship Specialty Start Date End Date Royce Lujan, CARTRIDGE LOADING OPERATOR.ETYMOLOGY PROFESSOR [address] [place] [address] PCP - General Family Medicine 07/03/19 Medical Underwriter Relationship Specialty Start Date End Date PremaRoyce, CARTRIDGE LOADING OPERATOR.ETYMOLOGY PROFESSOR [address] [place] [address] PCP - General Family Medicine 07/03/19 Medical Underwriter Relationship Specialty Start Date End Date PremaRoyce, CARTRIDGE LOADING OPERATOR.ETYMOLOGY PROFESSOR [address] [place] [address] PCP - General Family Medicine 07/03/19 Medical Underwriter Relationship Specialty Start Date End Date Royce, CARTRIDGE LOADING OPERATOR.ETYMOLOGY PROFESSOR [address] [place] [address] PCP - General Family Medicine 07/03/19 Medical Underwriter Relationship Specialty Start Date End Date Royce, CARTRIDGE LOADING OPERATOR.ETYMOLOGY PROFESSOR [address] [place] [address] PCP - General Family Medicine 07/03/19 Medical Underwriter Relationship Specialty Start Date End Date PremaRoyce, CARTRIDGE LOADING OPERATOR.ETYMOLOGY PROFESSOR [address] [place] [address] PCP - General Family Medicine 07/03/19 Medical Underwriter Relationship Specialty Start Date End Date PremaRoyce, CARTRIDGE LOADING OPERATOR.ETYMOLOGY PROFESSOR [address] [place] [address] PCP - General Family Medicine 07/03/19 Medical Underwriter Relationship Specialty Start Date End Date PremaRoyce, CARTRIDGE LOADING OPERATOR.ETYMOLOGY PROFESSOR [address] [place] [address] PCP - General Family Medicine 07/03/19 Medical Underwriter Relationship Specialty Start Date End Date PremaRoyce, CARTRIDGE LOADING OPERATOR.ETYMOLOGY PROFESSOR [address] [place] [address] PCP - General Family Medicine 07/03/19 Medical Underwriter Relationship Specialty Start Date End Date PremaRoyce, CARTRIDGE LOADING OPERATOR.ETYMOLOGY PROFESSOR [address] [place] [address] PCP - General Family Medicine 07/03/19 Medical Underwriter Relationship Specialty Start Date End Date PremaRoyce, CARTRIDGE LOADING OPERATOR.ETYMOLOGY PROFESSOR [address] [place] [address] PCP - General Family Medicine 07/03/19 Medical Underwriter Relationship Specialty Start Date End Date PremaRoyce, CARTRIDGE LOADING OPERATOR.ETYMOLOGY PROFESSOR [address] [place] [address] PCP - General Family Medicine 07/03/19 Medical Underwriter Relationship Specialty Start Date End Date PremaRoyce, CARTRIDGE LOADING OPERATOR.ETYMOLOGY PROFESSOR [address] [place] [address] PCP - General Family Medicine 07/03/19 FOR [...] BE BASED ON THE PRIMARY CLINICAL RECORDS. [employer] [facility]. provides no warranty or guarantee of the accuracy or completeness of information in this document.
== END | disposition home or self-care (01) ==
LOC: MRI 17:52
PROVIDERS: PCP Nurse Practitioner Family; Referring Provider Nurse Practitioner Family; Visit Provider Nurse Practitioner Family
DX: G44.53 Primary thunderclap headache (principal); R47.02 Dysphasia; R55 Syncope and collapse; Z82.49 Family history of ischemic heart disease and other diseases of the circulatory system
CPT/HCPCS: 70553; A9575

== ENCOUNTER 2024-03-23 09:33 | Day surgery (SDC) | payer OTHER, SELFPAY ==
[2024-03-23] VITALS (7 sets, daily range): BP systolic 88–110; BP diastolic 64–81; PULSE 92–106; RESP 16–18; TEMP 36–36.7; O2SAT 94–100; BMI 27.8
--- NOTE | 2024-03-23 10:30 | IMM_PTH ---
PATHOLOGY RESULTS PATIENT: RANGEL ARANDA LOC: EN U#:[id number] AGE/SX: 53/F ROOM: RE03/23/[address]: Dr. Selwyn Koch MD : 1970 BED: DIS: 03/23/2024 SPEC #: [id number] RECD: 03/23/24 14:48 STATUS: SUNDAY REQ #: [id number] WILLIAM: 03/23/24 10:[address]: Selwyn Koch DEPT: IMMUNOHISTOCHEMISTRY RECD BY: Garfield Jeong ENTERED: 03/23/24 14:49 SP TYPE: IMMUNO OTHR DR: Pricila Lujan, LEAD CYTOGENETIC TECHNOLOGIST-Yulisa Tissues: Gastric mucous membrane Procedures: H Pylori (initial) PHYSICIAN & INSTITUTION [place] [address] SPECIMEN INFORMATION: Tissue Source: B- Gastric antrum biopsy Clinical Info: Abnormal biliary HIDA screen, weight loss, unintentional, postprandial nausea, postprandial epigastric pain Specimen Number: [id number] CPT code: 58767 METHODOLOGY: Deparaffinized sections of prefer/formalin-fixed tissue or PAP/DQ stained slides are incubated with monoclonal/polyclonal antibodies/oligonucleotide probes. Localization is made via biotin free immunoperoxidase method. Appropriate controls are performed and reacted as expected. Results on target cell population are indicated in the following table: RESULTS: ANTIBODY / CLONE RESULT Block B H Pylori (polyclonal) negative These tests were developed and their performance characteristics determined by [facility]. They may not have been cleared or approved by the U.S. Food and Drug Administration. The FDA has determined that such clearance or approval is not necessary. The above immunohistochemical/dualISH markers are ordered and reviewed by the Pathologist. INTERPRETATION: B. Gastric antrum, biopsy: Negative for Helicobacter pylori organisms. 03/24/2024
--- NOTE | 2024-03-23 10:30 | EGD_PTH ---
PATHOLOGY RESULTS PATIENT: RANGEL AARNDA LOC: EN U#:[id number] AGE/SX: 53/F ROOM: RE03/23/[address]: Dr. Selwyn Koch MD : 1970 BED: DIS: 03/23/2024 SPEC #: [id number] RECD: 03/23/24 13:48 STATUS: SUNDAY MILDRED #: [id number] WILLIAM: 03/23/24 10:[address]: Selwyn Koch DEPT: SURGICAL PATHOLOGY RECD BY: Teddy Jeronimo ENTERED: 03/23/24 14:42 SP TYPE: EGD BIOPSY OTHR DR: RG Albrecht Tissues: Duodenum, NOS Gastric mucous membrane COLON BIOPSY Esophagus, NOS Esophagus, NOS Procedures: Special Stain Group I Surgery Specimen Level IV Alcian Blue/PAS (control) HEADER OPERATION: EGD, biopsy, hemostasis PRE-OP DIAGNOSIS: Abnormal biliary HIDA scan, weight loss, unintentional, postprandial nausea, postprandial epigastric pain TISSUE SUBMITTED: A- Duodenal biopsy, B- Gastric antrum biopsy, C- Greater curvature biopsy, D- Gastroesophageal junction biopsy, E- Distal esophagus biopsy MICROSCOPIC DIAGNOSIS A. Duodenum, biopsy: Tubular adenoma. B. Gastric antrum, biopsy: Chronic gastritis. See comment. C. Gastric mucosa, greater curvature, biopsy: Chronic gastritis. D. Gastroesophageal junction, biopsy: Reflux esophagitis. No evidence of goblet cell metaplasia. See comment.E. Distal esophagus, biopsy: Consistent with changes of reflux. No evidence of goblet cell metaplasia. See comment. 03/24/2024 COMMENT B. The results of immunohistochemistry for Helicobacter pylori will be reported separately ([id number]). D. Alcian blue/PAS stain with matched control is used in the evaluation of the specimen. E. Alcian blue/PAS stain with matched control is used in the evaluation of the specimen. MICROSCOPIC DESCRIPTION Slides are reviewed. GROSS DESCRIPTION A. Received in fixative is one container labeled with the patient's name and designated Duodenal polyp biopsy. The specimen consists of one irregular fragment of light rios soft tissue that measures 0.3 x 0.3 x 0.1 cm. The specimen is totally submitted in one cassette. B. Received in fixative is one container labeled with the patient's name and designated Gastric antrum biopsy. The specimen consists of two irregular fragments of light rios soft tissue that in aggregate measure 0.5 x 0.3 x 0.1 cm. The specimen is totally submitted in one cassette. C. Received in fixative is one container labeled with the patient's name and designated Greater curvature mucosal biopsy. The specimen consists of two irregular fragments of light rios soft tissue that in aggregate measure 0.6 x 0.4 x 0.1 cm. The specimen is totally submitted in one cassette. D. Received in fixative is one container labeled with the patient's name and designated GE junction biopsy. The specimen consists of two irregular fragments of light rios soft tissue that in aggregate measure 0.6 x 0.2 x 0.1 cm. The specimen is totally submitted in one cassette. E. Received in fixative is one container labeled with the patient's name and designated Distal esophagus biopsy. The specimen consists of two irregular fragments of light rios soft tissue that in aggregate measure 0.8 x 0.3 x 0.1 cm. The specimen is totally submitted in one cassette. SJ.mr 03/23/2024 TC:3 CPT:02343f9,04213d5
--- NOTE | 2024-03-23 10:39 | PRE.ANES_ITS ---
ASA Classification* ASA Classification ASA Classification: 2 Assessment & Plan Anesthesia* Anesthesia Assessment Anesthesia Assessment: Discussed sedation and/or anesthesia options, risks, benefits, and alternatives with patient/parents/legal guardian/POA. Questions invited. The patient/parents/legal guardian/POA seems to understand and agrees to proceed with anesthesia plan. Reviewed the physical assessment, medical history, allergy history and patient home medications list prior to surgery/procedure/anesthetic and documented any changes. Performed airway and anesthesia risk assessments. Anesthesia Type Anesthesia Type: MAC (see written pre anesthesia record for full assessment) Anesthesia Focused Assessment* Temperature: 98.1 F Pulse Rate: 92 Blood Pressure: 110/73 Respiratory Rate: 16 Pulse Ox: 100 Airway Assessment Mouth opens: >3 cm Mallampati Score: II Focused Labs Anesthesia Preop lab: CBC WBC 6.1 K/mm3 (4.4-11.0) 05/31/23 02:40 RBC 4.91 M/mm3 (4.2-5.4) 05/31/23 02:40 Hgb 13.3 g/dL (12.0-15.0) 05/31/23 02:40 Hct 41.1 % (37-47) 05/31/23 02:40 Plt Count 249 K/mm3 (150-450) 05/31/23 02:40 CHEMISTRY Potassium 4.1 mmol/L (3.5-5.1) 05/31/23 02:40 Sodium 139 mmol/L (136-145) 05/31/23 02:40 Magnesium 2.4 mg/dL (1.6-2.6) 05/31/23 02:40 BUN 22 mg/dL (7-18) H 05/31/23 02:40 Creatinine 0.95 mg/dL (0.55-1.02) 05/31/23 02:40 Glucose 105 mg/dL (74-106) 05/31/23 02:40 TSH 3.05 uIU/mL (0.358-3.74) 05/31/23 02:40 COAG PT 11.5 SECONDS (11.7-14.9) L 03/26/17 22:24 Urine Test Negative Negative 06/21/17 14:02 Pre-Assessment Diagnosis/Proposed Procedure Planned Operative Procedure(s): EGD Anesthesia History 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 When Was Last Pacemaker Check QUESTION #4 FULL TEXT: You/Your Family Experience fever (hyperthermia) with Anesthesia Last Oral Intake Last Oral intake: Last Oral Intake NPO since 00:00 03/23/24 09:51 Meds taken in AM with sips of water? Meds patient instructed to take am of surgery PONV PONV - generator worker: PONV - generator worker Female Yes 03/21/24 10:50 HX of Motion Sickness No 03/21/24 10:50 HX of N/V After Surgery No 03/21/24 10:50 Non-Smoker Yes 03/21/24 10:50 Duration of Surgery greater No 03/21/24 10:50 than 60 minutes Number of Risk Factors 2 03/21/24 10:50 PONV Score Moderate Risk 03/21/24 10:50 Height & Weight Height & Weight: Anesthesia: Height & Weight Height 5 ft 2 in 03/23/24 09:51 Weight: 68.946 kg 03/23/24 09:51 Body Mass Index (BMI) 27.8 03/23/24 09:51 Respiratory Assessment Respiratory Assessment - generator worker: Respiratory Tract Infection Hx - generator worker Hx Respiratory Tract Infection No 03/21/24 10:50 STOP Sleep Apnea STOP Sleep Apnea - generator worker: STOP Sleep Apnea - generator worker Hx Hypertension No 03/21/24 10:50 Hx Sleep Apnea No 03/21/24 10:50 CPAP No 03/21/24 10:50 BIPAP No 03/21/24 10:50 Do you snore loudly (louder No 03/21/24 10:50 than talking or can be heard Do you often feel tired/ No 03/21/24 10:50 fatigued/ sleepy during daytime? Has anyone observed you stop No 03/21/24 10:50 breathing during sleep? STOP Results Negative 03/21/24 10:50 QUESTION #5 FULL TEXT : Do you snore loudly (louder than talking or can be heard through closed doors)? 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 Specify any problems Hx of Preganancy in last 3 No 03/21/24 10:50 Months Nurse Filling Out Transfusion VCHRISTIN 03/21/24 10:50 & Questions: Date: 03/21/24 03/21/24 10:50 Time: 10:51 03/21/24 10:50 Patient unable to answer at this time (ie. confused, unrespo /Reproduction History /Reproductive History - generator worker: /Reproductive Hx- generator worker Hx Now Gestational Age (in weeks): EDC: Hx Hx Para Hx Section SAB PFSH Medical History Wears glasses History of IBS H/O radioactive iodine thyroid ablation Hx of pulmonary embolus GERD (gastroesophageal reflux disease) Fecal urgency HLD (hyperlipidemia) Acute insomnia Endometriosis Acute gastritis without mention of hemorrhage Diarrhea Post-menopausal Wears contact lenses Cancer Anxiety Thyroid disease Pulmonary embolism Migraine headache Gastric reflux Non-smoker Asthma History of echocardiogram History of irregular heartbeat Home Medications ?Medication ?Instructions ?Recorded ?Last Taken ?Type sumatriptan succinate 25 mg tablet See Rx Instructions PO .COMPLEX 06/08/22 Unknown History levothyroxine 175 mcg tablet 175 mcg PO MOTUWETHFRSA 01/06/24 Unknown History (Synthroid) alprazolam 0.25 mg tablet 0.25 mg PO QHS PRN anxiety 03/02/24 Unknown History sertraline 100 mg tablet 100 mg PO DAILY 03/02/24 Unknown History aripiprazole 2 mg tablet 2 mg PO QHS #30 tabs 03/07/24 Unknown Rx albuterol sulfate 90 mcg/actuation 2 puff inhalation 4X/DAY PRN PRN 03/21/24 Unknown History aerosol inhaler shortness of breath or wheezing lamotrigine 25 mg tablet 25 mg PO BID 03/21/24 Unknown History levothyroxine 88 mcg capsule 87.5 mcg PO MARTINEZ 03/21/24 Unknown History tirzepatide 10 mg/0.5 mL 10 mg subcut QWEEK 03/21/24 03/17/24 History subcutaneous pen injector propranolol 10 mg tablet 10 mg PO BID PRN anxiety 15 days 03/22/24 03/22/24 22:00 Rx #30 tabs Allergy/AdvReac Type Severity Reaction Status Date / Time Iodinated Contrast Media Allergy Hives Verified 03/23/24 09:50 (Iodinated Contrast Media - IV Dye) Family History Mother Depression Thyroid disorder Seizures Arthritis Osteoporosis Father CAD (coronary artery disease) Brother Diabetes Son Autoimmune disease Other Anxiety Blood clot in vein Heart disease Mental disorder Psychiatric care Surgical History H/O dilation and curettage History of tubal ligation History of thyroidectomy History of nasal septoplasty History of Social History Smoking Status: Never smoker alcohol intake: current alcohol intake frequency: holidays/special occasions only details: wine social/holidays substance use type: does not use what type of physical activity do you participate in: walking Review of Systems (Anesthesia) ROS Narrative System reviewed and no additional complaints, except as documented.
--- NOTE | 2024-03-23 11:55 | HP.PCM_ITS ---
History and Physical Date of Admission: 03/23/24 Date of Service: 03/02/24 MR#: [id number] Acct: [id number] Name: RANGEL ARANDA Rep #: [id number] : 1970 Provider: Dr. Selwyn Koch MD Age/Sex: 53/F Location: [facility] Status: Signed Intake Vital Signs 02/08/2410:07 03/02/2409:46 Height 5 ft 2 in 5 ft 2 in Weight: 148 lb 149 lb 2 oz BMI 27.1 27.2 BP 103/68 99/67 Blood Pressure Location Rt brachial Position Sitting Respiration 17 18 Pulse 82 96 Pulse Source Monitor Temp 97.3 F L Temp Source Temporal Pulse Oximetry (%) 100 100 Oxygen Delivery Method room air Intake Visit Reasons: GALLBLADDER Chief Complaint: Gallbladder Rn Orthopedic Required: No Is patient in pain?: No Allergies Iodinated Contrast Media (Iodinated Contrast Media - IV Dye) Allergy (Verified 03/02/24 09:47) Hives Medications ?Medication ?Instructions ?Recorded ?Confirmed ?Type sumatriptan succinate 25 mg tablet See Rx Instructions PO .COMPLEX 06/08/22 03/02/24 History levothyroxine 175 mcg tablet 175 mcg PO DAILY 01/06/24 03/02/24 History (Synthroid) aripiprazole 2 mg tablet 2 mg PO QHS #30 tabs 02/09/24 03/02/24 Rx alprazolam 0.25 mg tablet 0.25 mg PO QHS PRN 03/02/24 03/02/24 History sertraline 100 mg tablet 200 mg PO DAILY 03/02/24 History PFSH Medical History H/O radioactive iodine thyroid ablation Hx of pulmonary embolus GERD (gastroesophageal reflux disease) Fecal urgency HLD (hyperlipidemia) Acute insomnia Endometriosis Acute gastritis without mention of hemorrhage Diarrhea Post-menopausal Wears contact lenses Cancer Anxiety Thyroid disease Pulmonary embolism Migraine headache Gastric reflux Non-smoker Asthma History of echocardiogram History of irregular heartbeat Surgical History H/O dilation and curettage History of tubal ligation History of thyroidectomy History of nasal septoplasty History of Family History Mother Depression Thyroid disorder Seizures Arthritis OsteoporosisFather CAD (coronary artery disease)Brother DiabetesSon Autoimmune diseaseOther Anxiety Blood clot in vein Heart disease Mental disorder Psychiatric care Social History Smoking Status: Never smoker alcohol intake: current alcohol intake frequency: holidays/special occasions only details: wine social/holidays substance use type: does not use what type of physical activity do you participate in: walking HPI HPI HPI: Patient is a 53-year-old female who presents for gallbladder dysfunction. They are referred for surgical consultation from Ms. Romy Lujan NP. Patient shares that she began in October with trouble eating. She describes this as getting full quickly but denies any feelings of bloating. She shares she simply does not have an appetite. She also notes that she experiences some mild pain after eating and that the onset of this mild pain is always within 20 to 30 minutes of meal ingestion. She reports that she was initially doing okay with the brat diet and cites foods such as potatoes being acceptable while dairy was triggering. Along with this feeling of fullness she notes some rare experience of heartburn or reflux. When asked to quantify this further she estimates the symptoms occur 1-2 times per week and she will occasionally use Pepto-Bismol with some positive effect. She notes that she was previously on omeprazole for 3 years but did not notice a great improvement so she took this medication off herself. With the discomfort and feelings of fullness Mrs. Aranda has experienced a weight loss of over 20 pounds in the past 4 months. She also is feeling more fatigued. She states that this fatigue, however, seems to have followed her thyroidectomy. 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 Federico Gillis, has kept her hypothyroid following her thyroidectomy for thyroid cancer but when discussing things further she is actually kept with some mild hyperthyroidism and TSH suppression. Outside of the above Mrs. Aranda notes some increased anxiety. She also notes some diarrhea whereas previously she had been diagnosed with irritable bowel syndrome?constipation type. Mrs. Aranda confirms a history of colonoscopy and EGD [address] Agrawal she notes that there were no findings. She also confirms familiarity with a workup for H. pylori and microscopic colitis. When asked to characterize her symptoms further she denies any particular time of day with her symptoms. Do symptoms build up to a steady level and last at least 30 minutes?-Yes Does the pain occur at different intervals?-Yes Is a pain severe enough to interrupt daily activities or has not led to the emergency department visit?-Yes Is the pain not significantly (less than 20%) related to bowel movements relieved by postural change, or acid suppression?-No, patient states that lying on her stomach and taking Pepto-Bismol has improved her pain Previous work-up has included: Gallbladder ultrasound on 01/20/2024 that showed no evidence of cholelithiasis, gallbladder wall at 2 mm, common bile duct at 3 mm, and a negative sonographic Davis sign. Hide imaging was obtained 01/28/2024 and was read by radiology as hyperkinetic with an ejection fraction of 93%. ROS General General: Yes weight change; No appetite, fatigue, colon cancer, breast cancer or weakness Additional Details: Approximately 22 pound weight loss past few months. Loss of appetite due to full feeling epigastric region HEENT HEENT: No difficulty swallowing, eye injury, eye surgery, swollen glands or hoarseness Endo Endocrine: Yes thyroid disease and thyroid cancer; No diabetes mellitus, Hair loss, heat intolerance or cold intolerance Skin Skin: No rash or changing moles Breast Breast: No left breast lump, right breast lump, nipple discharge, breast pain, abnormal mammogram, abnormal US or breast enlargement Musc Musculoskeletal: No back problems, arthritis, rheumatoid arthritis, gout or joint pain Cardio Cardiovascular: No murmur, pacemaker, heart disease, atrial fibrillation, high blood pressure, heart attack, heart stent, palpitations, shortness of breat with exertion or chest pain Psych Psychiatric: Yes depression and anxiety; No hearing voices Resp Respiratory: No shortness of breath, No sleep apnea, No cough, No COPD, No asthma, No emphysema and No wheezing Gastro Gastrointestinal: Yes abdominal pain, Yes nausea or vomiting, No diarrhea, No constipation, No blood in stool, Yes acid reflux, No hemorrhoids, No ulcers, Yes gallbladder problem and No black,tarry stools Additional Details: Feeling of fullness. Loss of appetite. Using will chews William Hematologic: No blood thinners, No blood disorders, No bleeding, No anemia and Yes blood clots Neuro Neurologic: No system reviewed and no additional complaints, except as documented, No as per HPI, No abnormal gait, No abnormal hearing, No abnormal movements, No abnormal speech, No behavioral changes, No burning sensations, No confusion, No convulsions, No disequilibrium, No dizziness, No localized weakness, No frequent falls, No headache(s), No lack of coordination, No loss of vision, No memory loss, No numbness, No other visual disturbances, No radicular pain, No restless legs, No sensory deficit, No syncope, No tingling, No tremor(s), No weakness and No other Exam Const General: cooperative, healthy appearing and comfortable Orientation: alert, awake and oriented x3 Resp Effort & Inspection: normal respiratory effort GI Other: Soft, mildly tender to palpation of the epigastrium and lesser so the right upper quadrant. She also describes some mild tenderness of the right lower quadrant. There is no tenderness of the left abdominal quadrants with palpation. There are no scars. Assessment and Plan Assessment and Plan (1) Abnormal biliary HIDA scan: Status: Acute Comment: Patient is a 53-year-old female who makes surgical consultation related to 4- month history of postprandial abdominal discomfort and nausea in the setting of abnormal HIDA imaging. Careful history is elicited and is somewhat equivocal for biliary symptoms. Notable areas where her symptoms seem to be at odds with typical biliary presentation include its rapid onset within 30 minutes and her reports that lying on her stomach seems to alleviate her discomfort. I shared with her the results and implications of her HIDA imaging. With her having hyperkinetic ejection fraction of 93% and atypical biliary symptoms I am not sure she qualifies exactly for diagnosis functional gallbladder disorder in adult. I with her that I would like to exclude upper gastrointestinal source for discomfort. I did review the results of her EGD and colonoscopy with Dr. Agrawal several years ago where she was tested negative for H. pylori but did have evidence of some gastritis. I would like to reassess her H. pylori status and any evidence of peptic ulcer disease. The latter would better explain her symptoms. I have informed her that if this result is negative and her symptoms persist then we may have an indication to proceed with cholecystectomy after all. She expresses agreement and appreciation for this careful approach. Plan: Diagnostic EGD with biopsy for H. pylori and is deemed necessary by the exam. Patient tried to journal her symptoms as they relate to food and time of day in the interim. (2) Weight loss, unintentional: Status: Acute (3) Postprandial nausea: Status: Acute (4) Postprandial epigastric pain: Status: Acute Orders: I have examined the patient the following changes are noted: Patient shares that since our visit a short while ago she has had more postprandial abdominal pain that has an onset of 30 minutes to an hour after eating. She describes this pain as lower in the right side of her abdomen. On exam there is mild tenderness over the presumed area of the ascending colon. I recall that patient had a colonoscopy with Dr. Agrawal in 2021 that was unremarkable and its findings. Still, given the postprandial onset there is concern for peptic ulcer disease. Will therefore proceed with EGD and biopsy for H. pylori. Patient denies any questions related to this plan. Proceed to endoscopy suite.
--- NOTE | 2024-03-23 12:33 | PCM.POST.ANE ---
Anesthesia: Postop Eval I Current Vital Signs Temperature: 97 F Pulse Rate: 106 Blood Pressure: 88/64 Respiratory Rate: 18 Pulse Ox: 95 Oxygen Delivery Method: Room Air Assessment Airway patent: Yes Spontaneous unlabored respirations: Yes Mental status: Asleep nausea: No Vomiting: No Anesthesia Complication: No Fluid Hydration Crystalloid volume administer (ml): 60 Total IV fluid infused: 60 Progress Note Anesthesia document: Postop Eval 1 completed: Yes
--- NOTE | 2024-03-23 12:41 | OP.EGD_ITS ---
Patient Name: Isaura Cornelius Procedure Date: 03/23/2024 11:50 AM Date of : 1970 Age: 53 Procedure: Upper GI endoscopy Indications: Abdominal pain in the right upper quadrant, Heartburn Providers: Selwyn Koch MD Medicines: See the Anesthesia note for documentation of the administered medications Patient Profile: Refer to note in patient chart for documentation of history and physical. Complications: No immediate complications. Estimated blood loss: Minimal. Procedure: Pre-Anesthesia Assessment: - The heart rate, respiratory rate, oxygen saturations, blood pressure, adequacy of pulmonary ventilation, and response to care were monitored throughout the procedure. After obtaining informed consent, the endoscope was passed under direct vision. Throughout the procedure, the patient's blood pressure, pulse, and oxygen saturations were monitored continuously. The gastroscope was introduced through the mouth, and advanced to the second part of duodenum. The upper GI endoscopy was somewhat difficult due to excessive bleeding. Successful completion of the procedure was aided by controlling the bleeding. The patient tolerated the procedure well. Scope In: 12:03:45 PM Scope Out: 12:24:10 PM Total Procedure Duration Time 0 hours 20 minutes 25 seconds Findings: A single 3 mm semi-sessile polyp with no bleeding was found in the second portion of the duodenum. Biopsies were taken with a cold forceps for histology. Estimated blood loss was minimal. Diffuse moderately erythematous mucosa without bleeding was found in the gastric body and in the gastric antrum. Biopsies were taken with a cold forceps for histology. Estimated blood loss was minimal. Diffuse moderate inflammation characterized by erythema was found on the greater curvature of the stomach. Biopsies were taken with a cold forceps for histology. Estimated blood loss was minimal. The Z-line was regular and was found 34 cm from the incisors. Biopsies were taken with a cold forceps for histology. Estimated blood loss: 3 mL requiring treatment with placement of hemostatic clip(s). A small hiatal hernia was present. No biopsies or other specimens were collected for this exam. Two 2 mm polyps with no bleeding were found. Biopsies were taken with a cold forceps for histology. Estimated blood loss was minimal. The exam was otherwise without abnormality. Impression: - A single duodenal polyp. Biopsied. - Erythematous mucosa in the gastric body and antrum. Biopsied. - Gastritis. Biopsied. - Z-line regular, 34 cm from the incisors. Biopsied. - Small hiatal hernia. No specimens collected. - Esophageal polyp(s) were found. Biopsied. - The examination was otherwise normal. Recommendation: - Discharge patient to home (via wheelchair). - Soft diet for 2 days. - No aspirin, ibuprofen, naproxen, or other non-steroidal anti-inflammatory drugs for 2 days after biopsy. - Use Protonix (pantoprazole) 40 mg PO BID today. - Await pathology results. - Telephone my office for pathology results in 1 week. Procedure Code(s): --- Professional --- 53944, Esophagogastroduodenoscopy, flexible, transoral; with biopsy, single or multiple Diagnosis Code(s): --- Professional --- K31.7, Polyp of stomach and duodenum K31.89, Other diseases of stomach and duodenum K29.70, Gastritis, unspecified, without bleeding K44.9, Diaphragmatic hernia without obstruction or gangrene K22.81, Esophageal polyp R10.11, Right upper quadrant pain R12, Heartburn CPT copyright 2021 [employer] [place] [employer]. All rights reserved. The codes documented in this report are preliminary and upon crewman main battle tank review may be revised to meet current compliance requirements. Selwyn Koch MD 03/23/2024 12:40:43 PM This report has been signed electronically. Number of Addenda: 0 Note Initiated On: 03/23/2024 11:50 AM
--- NOTE | 2024-03-23 12:41 | OP.CCLET_ITS ---
03/23/2024 Kenia Albrecht Re : Upper GI endoscopy procedure for Isaura Coryer Le This procedure was performed on February. My impressions and recommendations are as follows: Impressions : - A single duodenal polyp. Biopsied. - Erythematous mucosa in the gastric body and antrum. Biopsied. - Gastritis. Biopsied. - Z-line regular, 34 cm from the incisors. Biopsied. - Small hiatal hernia. No specimens collected. - Esophageal polyp(s) were found. Biopsied. - The examination was otherwise normal. Recommendations : - Discharge patient to home (via wheelchair). - Soft diet for 2 days. - No aspirin, ibuprofen, naproxen, or other non-steroidal anti-inflammatory drugs for 2 days after biopsy. - Use Protonix (pantoprazole) 40 mg PO BID today. - Await pathology results. - Telephone my office for pathology results in 1 week. My findings are described in the full procedure note, which is enclosed. If I can be of further assistance, please feel free to contact me at Doctor phone number(s): , Work: . Sincerely, Selwyn Koch MD 03/23/2024 12:40:43 PM This report has been signed electronically.
--- NOTE | 2024-03-23 12:47 | PCM.POSTANE2 ---
Anesthesia Postop Eval I Sum Postop Eval Completion status Anesthesia document: Postop Eval 1 completed: Yes Anesthesia Postop Eval I Summary Anesthesia Postop Eval I Summary: Anesthesia Postop Eval I: Assessment Summary Airway patent Yes 03/23/24 12:34 [email or web address] Spontaneous unlabored Yes 03/23/24 12:34 [email or web address] respirations Mental status Asleep 03/23/24 12:34 [email or web address] nausea No 03/23/24 12:34 [email or web address] Vomiting No 03/23/24 12:34 [email or web address] Anesthesia Postop Eval I: Fluid Summary Crystalloid volume administer 60 03/23/24 12:34 [email or web address] (ml) Colloids volume administered ( ml) Blood Product volume administered (ml) Total IV fluid infused 60 03/23/24 12:34 [email or web address] Anesthesia Postop Eval I: Summary Notes Anesthesia Complication No 03/23/24 12:34 [email or web address] Anesthesia Complication Comment: Post-operative progress note Anesthesia: Postop Eval II Evaluation Mental status: Awake Pain Level: 0 nausea: No Vomiting: No
== END 2024-03-23 13:06 | disposition home or self-care (01) ==
LOC: EN 09:33 → AC 09:34
PROVIDERS: PCP Nurse Practitioner Family; Referring Provider Nurse Practitioner Family; Visit Provider Surgery
PROC: 0DJ08ZZ Inspection of Upper Intestinal Tract, Via Natural or Artificial Opening Endoscopic (ICD-10-PCS; CPT 43235; principal; 2024-03-23 10:25)
DX: R10.13 Epigastric pain (principal); K44.9 Diaphragmatic hernia without obstruction or gangrene; K31.7 Polyp of stomach and duodenum; K22.81 Esophageal polyp; K29.70 Gastritis, unspecified, without bleeding; E78.5 Hyperlipidemia, unspecified; F41.9 Anxiety disorder, unspecified; Z79.899 Other long term (current) drug therapy; Z98.51 Tubal ligation status; R93.2 Abnormal findings on diagnostic imaging of liver and biliary tract; R63.4 Abnormal weight loss; R11.0 Nausea; K22.89 Other specified disease of esophagus; K21.00 Gastro-esophageal reflux disease with esophagitis, without bleeding; Z68.27 Body mass index [BMI] 27.0-27.9, adult
CPT/HCPCS: 43255; 43239; 88305; 88312; 88342; A4216; J2405

== ENCOUNTER → 2024-10-27 | Outpatient (CLI) | payer OTHER, SELFPAY ==
[2024-10-27 16:28] LABS: Hemoglobin A1c 4.8 % (<=5.6)
[2024-10-27 16:43] LABS: ALB/GLOB Ratio 1.7 RATIO (0.9-2.4); AST(SGOT) 41 U/L (<=31); Alanine Aminotransfer ALT/SGPT 43 U/L (<=34); Albumin, Serum 4.4 g/dL (3.5-5.0); Alkaline Phosphatase 69 U/L (35-104); Anion Gap 10 (5-15); BUN 18 mg/dL (4-19); BUN/Creat Ratio 21.4 RATIO (10-20); Calcium,Total 9.3 mg/dL (7.6-11.0); Carbon Dioxide 25.5 mmol/L (21.0-32.0); Chloride 100 mmol/L (98-108); Cholesterol 218 mg/dL (<=200); Creatinine, Serum 0.85 mg/dL (0.70-1.20); EST Glomerular Filtration Rate 82 (>60); Globulin 2.6 g/dL (2.2-4.2); Glucose 85 mg/dL (70-99); High Density Lipoprotein 62 mg/dL; Low Density Lipoprotein Calc. 138 mg/dL; Protein, Total 6.9 g/dL (5.9-8.4); Sodium Level 135 mmol/L (133-145); Total Bilirubin 0.35 mg/dL (0.00-1.30); Triglycerides 91 mg/dL; Very Low Density Lipoprotein 18 mg/dL (5-40); Vitamin D,25 Hydroxy 72.3 ng/mL (30-100)
== END | disposition home or self-care (01) ==
LOC: MTLAB 13:16
PROVIDERS: PCP Nurse Practitioner Family; Referring Provider Nurse Practitioner Psychiatric/Mental Health; Visit Provider Nurse Practitioner Psychiatric/Mental Health
DX: F32.A Depression, unspecified (principal)
CPT/HCPCS: 36415; 80053; 80061; 82306; 83036; 84439; 84443